=== PATIENT | female | born 1965 | race Caucasian/White ===

== ENCOUNTER 2018-03-11 01:07 | Emergency (ER) | payer MEDICAID, SELFPAY ==
[2018-03-11 01:09] VITALS: BP 155/96; PULSE 125; RESP 18; TEMP 37.4; O2SAT 96; BMI 29.4
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
--- NOTE | 2018-03-11 01:33 | ED.DEP ---
ED Disposition - Plan for ED Patient: Disposition: Home or Assisted Living Chief Complaint: Poisoning Referrals: Kiana Chavarria MD [Primary Care Provider] - As soon as possible Counseling,Center [GROUP OF PHYSICIANS] - As soon as possible Additional Instructions: Follow-up your primary care physician Dr. Chavarria and the counseling center.
--- NOTE | 2018-03-11 01:54 | ED.RN ---
THIS RN CALLED [facility] TO GET A RIDE FOR PT BACK TO [facility]. CAB CONTACTED. PT INFORMED OF AWAITING RIDE.
--- NOTE | 2018-03-11 02:03 | ED.RN ---
[facility] COMING TO TAKE PT TO [facility].
== END 2018-03-11 02:03 | disposition home or self-care (01) ==
PROVIDERS: Emergency Provider Emergency Medicine; Family Provider Internal Medicine; PCP Internal Medicine
DX: F20.9 Schizophrenia, unspecified (principal); I10 Essential (primary) hypertension; E11.9 Type 2 diabetes mellitus without complications; Z79.84 Long term (current) use of oral hypoglycemic drugs; Z79.899 Other long term (current) drug therapy; Z87.891 Personal history of nicotine dependence
CPT/HCPCS: 99284

== ENCOUNTER 2018-03-11 16:22 | Emergency (ER) | payer MEDICAID, SELFPAY ==
[2018-03-11 16:23] VITALS: BP 148/82; PULSE 99; RESP 18; TEMP 36.6; O2SAT 97; BMI 29.1
--- NOTE | 2018-03-11 16:51 | ED.VISSUMM ---
- ER Visit Summary Date of Service: 03/11/18 Chief Complaint: Suicidal ideation History of Present Illness: The patient is a 52 F presenting with suicidal ideation. Patient states she feels depressed and hopeless. She is currently staying at [facility]. They called the police who brought her to the ED for further evaluation. She states she has had thoughts of jumping in front of a car in traffic. She has a history of depression and schizoaffective disorder. She is a smoker. She denies drug use. Physical Examination: Vitals are stable. Patient is afebrile. Alert no acute distress. HEENT exam is unremarkable. Neck is supple. Lungs are clear and equal bilaterally. Heart is regular rate and rhythm. Abdomen is soft nontender nondistended. Extremities are unremarkable. Skin is warm and dry. No focal neurologic deficit. Suicidal ideation, tearful affect Remainder of exam is unremarkable. Emergency Department Course and Treatment: CBC unremarkable. Chemistries show sodium 128, glucose 117. She does have a history of previous hyponatremia. She is given IV fluids. Tox is negative. Discussed with counseling center for evaluation. Disposition: Per counseling center Impression: Depression, suicidal ideation This note was generated with [employer] dictation software. It may contain incorrect words, spelling, and punctuation that were not noted in review of the chart prior to signing ED Disposition - Plan for ED Patient: Chief Complaint: Suicidal Referrals: Kiana Chavarria MD [Primary Care Provider] -
[2018-03-11 17:07] LABS: Absolute Lymphocyte Count 2.69 X10^3/ul (0.83-4.51); Absolute Neutrophil Count 3.2 X10^3/uL (2.0-7.7); Basophil# 0.01 X10^3/uL; Basophil% 0.1 % (0-1); Eosinophil# 0.15 X10^3/uL; Eosinophils% 2.1 % (0-5); Hematocrit 35.4 % (37-47); Hemoglobin 12.3 g/dl (12.0-15.0); Lymphocyte # 2.69 X10^3/ul (4.0); Lymphocyte % 37.2 % (19-41); Mean Corp Hgb Conc 34.7 g/gl (32-36); Mean Corpuscular Hgb 29.8 pg (27.0-32.0); Mean Corpuscular Volume 85.7 fL (81-99); Mean Platelet Vol. 10.1 fl (6.2-12.0); Monocyte# 1.18 X10^3/uL; Monocyte% 16.3 % (0-10); Neutrophil # 3.18 X10^3/uL (2.7-7.7); Neutrophil % 43.9 % (47-70); Platelet Count 187 K/mm3 (150-450); RBC Distribution Width SD 40.8 fl (35.1-43.9); Red Blood Count 4.13 M/mm3 (4.2-5.4); White Blood Count 7.2 K/mm3 (4.4-11.0)
[2018-03-11 17:08] LABS: POSITIVE COUNT NO; POSITIVE DIFFERENTIAL NO; POSITIVE MORPHOLOGY NO
[2018-03-11 17:21] LABS: Amphetamine Urine VISTA NEGATIVE (<1000 ng/mL); Barbiturate Urine VISTA NEGATIVE (< 200 ng/mL); Benzodiazepine Urine VISTA NEGATIVE (< 200 ng/mL); Cocaine Urine VISTA NEGATIVE (< 300 ng/mL); Ecstacy Urine VISTA NEGATIVE (< 500 ng/mL); Methadone Urine VISTA NEGATIVE (< 300 ng/mL); PCP Urine VISTA NEGATIVE (< 25 ng/mL); THC Urine VISTA NEGATIVE (< 50 ng/mL); Vista UDS pH Range 5
[2018-03-11 17:25] LABS: Anion Gap 8 (5-15); BUN 13 mg/dL (7-18); BUN/Creat Ratio 19.5 RATIO (10-20); Calcium,Total 9.5 mg/dL (8.5-10.1); Chloride 94 mmol/L (98-107); Creatinine, Serum 0.67 mg/dL (0.55-1.02); EST Glomerular Filtration Rate 98 mL/min (>60); Est Glom Filt Rate - Afr Amer 118 mL/min (>60); Estimated Creatinine Clearance 82.89 ml/min; Glucose 117 mg/dL (74-106); Potassium 3.7 mmol/L (3.5-5.1); Sodium Level 128 mmol/L (136-145)
[2018-03-11 17:46] LABS: Pregnancy, Serum, hCG Quali. NEGATIVE Negative (0-9 Nonpreg)
[2018-03-11 17:48] LABS: Alcohol, Blood (Medical)-Serum < 3.0 mg/dL
--- NOTE | 2018-03-11 18:18 | ED.RN ---
MALCOLM MEDINA WILL BE HERE TO SEE PATIENT WHEN HE FINISHES UP IN ICU [id number]
[2018-03-11] MEDS: 0.9% Normal Saline 1,000 ML 999 ML IV (18:42)
[2018-03-11 18:58] VITALS: BP 120/77; PULSE 94; RESP 18; O2SAT 95
--- NOTE | 2018-03-11 20:12 | ED.DEP ---
ED Disposition - Plan for ED Patient: Chief Complaint: Suicidal Instructions: ED Depression Referrals: Kiana Chavarria MD [Primary Care Provider] - Counseling,Center [GROUP OF PHYSICIANS] -
[2018-03-11 21:01] VITALS: BP 135/82; PULSE 76; RESP 16; O2SAT 95
--- NOTE | 2018-03-11 21:05 | NURSING ---
MALCOLM ADAM CALLED A TAXI TO TAKE THE PT TO THE [facility] AND HAS AN APPOINTMENT TOMORROW AT 02:30. A TAXI WILL TAKE HER TO AND FROM THE APPOINTMENT. PT STATES SHE WILL COOPERATE AND DOES NOT WANT TO HARM HERSELF OR OTHERS. CLOTHES GIVEN BACK TO HER AND WAITED FOR THE TAXI OUT IN TRIAGE.
== END 2018-03-11 21:07 | disposition home or self-care (01) ==
PROVIDERS: Emergency Provider Emergency Medicine; Family Provider Internal Medicine; PCP Internal Medicine
DX: F32.9 Major depressive disorder, single episode, unspecified (principal); R45.851 Suicidal ideations; Z72.0 Tobacco use; F25.9 Schizoaffective disorder, unspecified; I10 Essential (primary) hypertension; E11.9 Type 2 diabetes mellitus without complications; Z79.84 Long term (current) use of oral hypoglycemic drugs; Z79.899 Other long term (current) drug therapy
CPT/HCPCS: 36415; 80048; 80307; 80320; 84703; 85025; 96360; 99284; 99285; J7030; A4216; G0480

== ENCOUNTER 2018-03-13 19:12 | Emergency (ER) | payer MEDICAID, SELFPAY ==
[2018-03-13 19:12] VITALS: BP 149/86; PULSE 77; RESP 18; TEMP 36.3; O2SAT 97; BMI 29.1
[2018-03-13 20:02] LABS: Absolute Lymphocyte Count 2.89 X10^3/ul (0.83-4.51); Absolute Neutrophil Count 2.7 X10^3/uL (2.0-7.7); Basophil# 0.01 X10^3/uL; Basophil% 0.1 % (0-1); Eosinophil# 0.22 X10^3/uL; Eosinophils% 3.3 % (0-5); Hematocrit 34.5 % (37-47); Hemoglobin 11.8 g/dl (12.0-15.0); Lymphocyte # 2.89 X10^3/ul (4.0); Lymphocyte % 42.9 % (19-41); Mean Corp Hgb Conc 34.2 g/gl (32-36); Mean Corpuscular Hgb 30.1 pg (27.0-32.0); Mean Platelet Vol. 10.3 fl (6.2-12.0); Monocyte# 0.86 X10^3/uL; Monocyte% 12.8 % (0-10); Neutrophil # 2.73 X10^3/uL (2.7-7.7); Neutrophil % 40.6 % (47-70); Platelet Count 184 K/mm3 (150-450); RBC Distribution Width CV 13.3 % (11.6-14.6); RBC Distribution Width SD 42.4 fl (35.1-43.9); Red Blood Count 3.92 M/mm3 (4.2-5.4); White Blood Count 6.7 K/mm3 (4.4-11.0)
[2018-03-13 20:04] LABS: POSITIVE COUNT NO; POSITIVE DIFFERENTIAL NO; POSITIVE MORPHOLOGY NO
[2018-03-13 20:16] LABS: Anion Gap 7 (5-15); BUN 12 mg/dL (7-18); BUN/Creat Ratio 14.8 RATIO (10-20); Calcium,Total 8.9 mg/dL (8.5-10.1); Chloride 99 mmol/L (98-107); Creatinine, Serum 0.81 mg/dL (0.55-1.02); EST Glomerular Filtration Rate 78 mL/min (>60); Est Glom Filt Rate - Afr Amer 94 mL/min (>60); Estimated Creatinine Clearance 68.56 ml/min; Glucose 207 mg/dL (74-106); Potassium 3.8 mmol/L (3.5-5.1); Sodium Level 134 mmol/L (136-145)
[2018-03-13 20:25] VITALS: BP 148/85; PULSE 80; RESP 17; O2SAT 98
[2018-03-13 20:32] LABS: Bacteria 0 SEEN /hpf (None Seen); Mucous, Urine 0 SEEN /hpf (<or=2+); Red Blood Cells-Urine 0 SEEN /hpf (0-5)
[2018-03-13 20:42] LABS: Color, Urine Yellow (Yellow); Glucose, Dipstick 250 mg/dl (Normal); Ketone-Dipstick 5 mg/dl (Negative); Leukocyte Esterase-Dipstick 100 /ul (Negative); Nitrite-Dipstick Negative (Negative); Occult Blood-Urine Negative /ul (Negative); Protein-Dipstick 15 mg/dl (Negative); Urine Bilirubin Dipstick Negative (Negative); Urine Clarity Sl. Cloudy (Clear); Urine Urobilinogen Normal (Normal); Urine pH 6.5 (5.0 - 8.0)
[2018-03-13 20:44] LABS: Squamous Epithelial Cells - UA 0-5 SEEN /hpf (5-10); White Blood Cells 0-5 SEEN /hpf (0-5)
--- NOTE | 2018-03-13 22:03 | ED.DCSUM_ITS ---
- ER Visit Summary Date of Service: 03/13/18 Chief Complaint: Abdominal pain for 2-3 days that has gotten worse. She reports nausea and diarrhea. She has blood or mucus in her stool. She states she has burning with urination. History of Present Illness: The patient is a 52 F who is not a good informant. She has a mood disorder and cognitive impairment. There is a past medical history of diabetes and hypertension. She presents with bilateral lower abdominal pain that has gotten worse over the past 2-3 days. She reports dysuria without frequency urgency or hematuria. She denies fever, chills night sweats. She denies any ocular, visual auditory symptoms. She denies any URI symptoms. Denies chest pain palpitations or rapid heartbeat. She denies cough , shortness of breath difficulty breathing. She denies dyspnea. She denies myalgias arthralgias. Denies back pain. She denies any skin lesions. Physical Examination: Vital signs are marked for an elevated blood pressure 149/ 86. Patient is not well groomed. Head is atraumatic normocephalic. Pupils are equal round reactive. Extraocular muscles are intact. TMs are pearly white with landmarks noted. Nares patent with no drainage. Posterior pharynx without erythema or exudate. Uvula is midline. There is no dysphonia or dysphasia. Trachea is midline. There is no stridor with auscultation of the neck. Heart is regular without murmur, gallop or rub. S1 and S2 are normal. Lungs are clear to auscultation with good movement of air bilaterally. Abdomen is slightly prominent tympanitic with evidence of diastases of the rectus muscle. There is no tenderness or guarding. There are no skin lesions noted or evidence of trauma. She is alert with a nonfocal neurologic exam. Test Results: CBC is marked for an H&H 11.8 and 34.5. Blood sugars 207 with normal CO2 and anion gap. UA is unremarkable for evidence of infection. Emergency Department Course and Treatment: Patient has passed p.o. challenge. Workup included CBC BMP UA in light of her constellation of symptoms. Treatment Plan: Differential includes UTI, gastroenteritis, abdominal wall discomfort. Since patient's workup is negative other than elevated blood sugar with a benign exam and the fact that she has passed p.o. challenge and had no vomiting or diarrhea in the department she will be discharged home Disposition: Discharged to home in stable improved condition Impression: 1. Abdominal pain with nausea and diarrhea 2. Hyperglycemia and diabetic 3. History of mood disorder This note was generated with [employer] dictation software. It may contain incorrect words, spelling, and punctuation that were not noted in review of the chart prior to signing ED Disposition - Plan for ED Patient: Disposition: Home or Assisted Living Chief Complaint: Abd Pain Instructions: ED Abdominal Pain Unkn Cause Referrals: Kiana Chavarria MD [Primary Care Provider] - 3-5 Days if not improving
[2018-03-13 22:18] VITALS: BP 136/96; PULSE 77; RESP 18; O2SAT 98
[2018-03-13] MEDS: Acetaminophen 325 MG Tablet 650 MG PO (22:21)
== END 2018-03-13 22:22 | disposition home or self-care (01) ==
PROVIDERS: Emergency Provider Emergency Medicine; Family Provider Internal Medicine; PCP Internal Medicine
DX: R10.32 Left lower quadrant pain (principal); R10.31 Right lower quadrant pain; R11.0 Nausea; R19.7 Diarrhea, unspecified; E11.65 Type 2 diabetes mellitus with hyperglycemia; I10 Essential (primary) hypertension; F39 Unspecified mood [affective] disorder; E66.9 Obesity, unspecified; Z68.29 Body mass index [BMI] 29.0-29.9, adult; Z79.84 Long term (current) use of oral hypoglycemic drugs; Z79.899 Other long term (current) drug therapy; Z72.0 Tobacco use
CPT/HCPCS: 80048; 81001; 85025; 99285; A4216

== ENCOUNTER 2018-03-14 06:45 | Emergency (ER) | payer MEDICAID, SELFPAY ==
[2018-03-14] VITALS (13 sets, daily range): BP systolic 143–198; BP diastolic 74–129; PULSE 81–121; RESP 14–24; TEMP 36.7–36.9; O2SAT 96–100; BMI 28.8
--- NOTE | 2018-03-14 07:07 | ED.RN ---
ONE BAG OF PATIENT BELONGINGS AND ONE SMALL RED SUITCASE REMOVED FROM THE ROOM
--- NOTE | 2018-03-14 07:14 | CT_ITS ---
STUDY: CT ABDOMEN AND PELVIS WITHOUT CONTRAST REASON FOR EXAM: Female, 52 years old. Lower abdominal pain. The patient has a history of her breast cancer and cervical cancer. RADIATION DOSAGE (If Supplied By Facility): CTDIvol = ( 13.88 ) mGy, DLP = ( 624.23 ) mGycm TECHNIQUE: Transaxial images were obtained from the dome of the diaphragm to the symphysis pubis without oral contrast, and without intravenous contrast. Sagittal and coronal images were reconstructed. Individualized dose optimization techniques were used for this CT. COMPARISON: None. FINDINGS: The visualized lung bases are unremarkable. The visualized portions of the heart are within normal limits. Normal liver. There are surgical clips in the gallbladder fossa consistent with a prior cholecystectomy. Normal spleen. Normal pancreas. Normal bilateral adrenal glands. Normal right kidney. Normal left kidney. There is a small hiatal hernia. Normal small intestine. Normal colon. There are surgical clips in the region of the appendix consistent with a prior appendectomy. There is diffuse atherosclerotic calcification of the abdominal aorta, without a demonstrated aneurysm. Normal inferior vena cava. Normal retroperitoneum. Markedly distended urinary bladder. Calcified phleboliths are seen within the pelvis. Surgical clips are seen in the pelvis. The patient is status post hysterectomy. Normal abdominal wall. There are degenerative changes of the visualized lumbar spine. CT/Abdomen/Pelvis without Cont IMPRESSION: Markedly distended urinary bladder Electronically Signed: Tommy Engle MD at 8:29 EDT Tel [phone], Service support ,
[2018-03-14 07:53] LABS: Absolute Lymphocyte Count 1.33 X10^3/ul (0.83-4.51); Absolute Neutrophil Count 6.2 X10^3/uL (2.0-7.7); Basophil# 0.02 X10^3/uL; Basophil% 0.2 % (0-1); Eosinophil# 0.04 X10^3/uL; Eosinophils% 0.5 % (0-5); Hematocrit 37.4 % (37-47); Hemoglobin 13.1 g/dl (12.0-15.0); Lymphocyte # 1.33 X10^3/ul (4.0); Lymphocyte % 15.3 % (19-41); Mean Corpuscular Hgb 30.3 pg (27.0-32.0); Mean Corpuscular Volume 86.6 fL (81-99); Mean Platelet Vol. 11.3 fl (6.2-12.0); Monocyte# 1.03 X10^3/uL; Monocyte% 11.8 % (0-10); Neutrophil # 6.23 X10^3/uL (2.7-7.7); Neutrophil % 71.6 % (47-70); POSITIVE COUNT NO; POSITIVE DIFFERENTIAL NO; POSITIVE MORPHOLOGY NO; Platelet Count 210 K/mm3 (150-450); RBC Distribution Width CV 13.1 % (11.6-14.6); RBC Distribution Width SD 41.9 fl (35.1-43.9); Red Blood Count 4.32 M/mm3 (4.2-5.4); White Blood Count 8.7 K/mm3 (4.4-11.0)
[2018-03-14] MEDS: Ondansetron ODT 4 MG Tablet PO (08:08)
[2018-03-14 08:09] LABS: ALB/GLOB Ratio 0.8 RATIO (0.9-2.4); AST(SGOT) 26 U/L (15-37); Alanine Aminotransfer ALT/SGPT 33 U/L (13-56); Albumin, Serum 3.6 g/dL (3.2-5.0); Alkaline Phosphatase 49 U/L (45-117); Anion Gap 11 (5-15); BUN 8 mg/dL (7-18); BUN/Creat Ratio 10.1 RATIO (10-20); Calcium,Total 9.1 mg/dL (8.5-10.1); Chloride 95 mmol/L (98-107); Creatinine, Serum 0.79 mg/dL (0.55-1.02); EST Glomerular Filtration Rate 80 mL/min (>60); Est Glom Filt Rate - Afr Amer 97 mL/min (>60); Globulin 4.4 g/dL (2.2-4.2); Glucose 163 mg/dL (74-106); Potassium 4.5 mmol/L (3.5-5.1); Sodium Level 131 mmol/L (136-145)
[2018-03-14 08:30] LABS: Valproic Acid (Depakene) Level 72 ug/mL (50-100)
[2018-03-14 08:31] LABS: Alcohol, Blood (Medical)-Serum < 3.0 mg/dL
[2018-03-14 08:41] LABS: Bacteria 0 SEEN /hpf (None Seen); Mucous, Urine 0 SEEN /hpf (<or=2+); Red Blood Cells-Urine 0 SEEN /hpf (0-5); White Blood Cells 0 SEEN /hpf (0-5)
[2018-03-14 08:44] LABS: Color, Urine Yellow (Yellow); Glucose, Dipstick 250 mg/dl (Normal); Ketone-Dipstick Negative (Negative); Leukocyte Esterase-Dipstick Negative /ul (Negative); Nitrite-Dipstick Negative (Negative); Occult Blood-Urine 10 /ul (Negative); Protein-Dipstick 100 mg/dl (Negative); Urine Bilirubin Dipstick Negative (Negative); Urine Clarity Clear (Clear); Urine Urobilinogen Normal (Normal)
[2018-03-14 08:49] LABS: Squamous Epithelial Cells - UA 0-5 SEEN /hpf (5-10)
--- NOTE | 2018-03-14 08:54 | NURSING ---
CALLED THE COUNSELING CENTER TO TELL THEM PATIENTS CLEARED. THEY ARE CALLING BACK.
[2018-03-14 08:56] LABS: Amphetamine Urine VISTA NEGATIVE (<1000 ng/mL); Barbiturate Urine VISTA NEGATIVE (< 200 ng/mL); Benzodiazepine Urine VISTA NEGATIVE (< 200 ng/mL); Cocaine Urine VISTA NEGATIVE (< 300 ng/mL); Ecstacy Urine VISTA NEGATIVE (< 500 ng/mL); Methadone Urine VISTA NEGATIVE (< 300 ng/mL); PCP Urine VISTA NEGATIVE (< 25 ng/mL); THC Urine VISTA NEGATIVE (< 50 ng/mL); Vista UDS pH Range 6
--- NOTE | 2018-03-14 08:59 | NURSING ---
ANASTACIO CALLED FROM [facility] AND SAID THEY WILL BE OVER SHORTLY.
--- NOTE | 2018-03-14 09:52 | NURSING ---
ALONA IS HERE FROM [facility]
--- NOTE | 2018-03-14 10:30 | ED.VISSUMM ---
- ER Visit Summary Date of Service: 03/14/18 Chief Complaint: [Suicidal ideation, depression, hallucinations] History of Present Illness: The patient is a 52 F [presents the emergency department with multiple complaints today. Patient has a history of schizophrenia, depression, diabetes, hypertension. Patient's had several visits in the last several days to the emergency department for complaint of abdominal pain. Patient states that everybody is against me]. Patient feels paranoid. Patient made mention to nurse that she was starting to feel suicidal. Patient has no specific plan on wanting to harm self. Patient does complain of diffuse abdominal discomfort. She has had some nausea but no vomiting. Patient has had some intermittent diarrhea. She denies any blood in her stool. Patient denies urinary symptoms. She has had no fever. Patient states that she is hearing voices and seeing things. Physical Examination: [HEENT-PERRLA, EOMI. Cranial nerves II through XII grossly intact. TMs clear. Mucous membranes moist. No adenopathy. Cardiovascular-regular rate and rhythm without murmur or ectopy Lungs-clear to auscultation, chest wall stable without crepitus or subcu emphysema Abdomen-normoactive bowel sounds, soft. Patient has some diffuse tenderness on exam. Abdomen somewhat protuberant. There is no rebound, rigidity, or perineal signs. Extremities-intact ?4, normal range of motion, normal pulses, atraumatic Test Results: [CBC with differential obtained showed a white count of 8.7, hemoglobin 13, hematocrit 37, platelets 210. Chemistries unremarkable. Urinalysis was normal. CT scan of the abdomen and pelvis showed nothing significant. Patient was noted to have a distended urinary bladder. Patient was able to void on her own without difficulty after CT and residual urine was 280 cc.] Emergency Department Course and Treatment: [Was given Zofran. Patient was given a nicotine patch.] Treatment Plan: [Patient will be evaluated by crisis] Disposition: [Plan will be to transfer to psychiatric facility pending evaluation by crisis] Impression: [Psychosis Depression Abdominal pain-etiology uncertain] This note was generated with Oncov[employer] software. It may contain incorrect words, spelling, and punctuation that were not noted in review of the chart prior to signing ED Disposition - Plan for ED Patient: Chief Complaint: Suicidal Referrals: Kiana Chavarria MD [Primary Care Provider] -
--- NOTE | 2018-03-14 11:59 | ED.RN ---
[facility] REQUESTING EKG, TEST, AND DEPAKOTE LEVEL
--- NOTE | 2018-03-14 12:02 | EKG12_ITS ---
Test Reason : MEDICAL CLEARANCE Blood Pressure : / mmHG Vent. Rate : 081 BPM Atrial Rate : 081 BPM P-R Int : 168 ms QRS Dur : 088 ms QT Int : 384 ms P-R-T Axes : 064 017 055 degrees QTc Int : 446 ms Normal sinus rhythm with sinus arrhythmia Normal ECG Confirmed by BREN FELIZ ([id number]), assignment desk editor HEENA ROSS ([id number]) on 03/18/2018 2:49:00 PM Referred By: CHRISTY Confirmed By:BREN FELIZ
--- NOTE | 2018-03-14 12:08 | ED.RN ---
THIS NURSE ATTEMPTED TO CONTACT [facility] WITH FOLLOWUP INFORMATION
--- NOTE | 2018-03-14 12:16 | ED.RN ---
MARISEL FROM [facility] NOTIFIED PT HAS HAD A HYSTERECTOMY AND DEPAKOTE LEVEL
[2018-03-14] MEDS: Divalproex Sodium 250 MG Tablet 1000 MG PO ×2 (12:57→17:30)
[2018-03-14] MEDS: Lisinopril 40 MG Tablet PO (12:57)
[2018-03-14] MEDS: Tolterodine Tartrate 2 MG CAP.SA PO (12:57)
[2018-03-14] MEDS: Pantoprazole Sodium 40 MG Tablet PO (12:57)
[2018-03-14] MEDS: hydrALAZINE 10 MG Tablet PO (15:32)
--- NOTE | 2018-03-14 18:38 | ED.RN ---
Pt standing at door stating a concern. I entered room to listen to patient and she stated there was something in the room. After asking what she meant, the patient asked if I was threatening her. I reassured her that I was onlt attempting to understand her statement. She them stated there was something in the room threatening her, clarified it was going to kill her. She also admitted to auditory hallucinations of said object. Pt was reassured nothing was in the room and nothing was going to hurt her. I manager housekeeping her door further to increase her comfort. She was agreeable to this action.
[2018-03-14] MEDS: cloNIDine HCl 0.1 MG Tablet PO (18:50)
[2018-03-14 19:15] LABS: Bedside Glucose 186 mg/dL (70-110)
== END 2018-03-14 19:19 ==
LOC: ED 07:26
PROVIDERS: Emergency Provider Emergency Medicine; Family Provider Internal Medicine; PCP Internal Medicine
DX: F32.9 Major depressive disorder, single episode, unspecified (principal); F29 Unspecified psychosis not due to a substance or known physiological condition; R10.9 Unspecified abdominal pain; E11.9 Type 2 diabetes mellitus without complications; I25.10 Atherosclerotic heart disease of native coronary artery without angina pectoris; I10 Essential (primary) hypertension; F20.9 Schizophrenia, unspecified; Z79.899 Other long term (current) drug therapy; Z79.84 Long term (current) use of oral hypoglycemic drugs; Z72.0 Tobacco use
CPT/HCPCS: 74176; 80053; 80164; 80307; 80320; 81001; 82962; 85025; 93005; 96374; 99285; A4216; G0480; J2405

== ENCOUNTER 2018-04-25 17:09 | Emergency (ER) | payer MEDICAID, SELFPAY ==
[2018-04-25 17:10] VITALS: BP 153/91; PULSE 95; RESP 18; TEMP 36.7; O2SAT 98; BMI 26.9
[2018-04-25 17:44] LABS: Absolute Lymphocyte Count 2.54 X10^3/ul (0.83-4.51); Absolute Neutrophil Count 3.6 X10^3/uL (2.0-7.7); Basophil# 0.01 X10^3/uL; Basophil% 0.1 % (0-1); Eosinophil# 0.09 X10^3/uL; Eosinophils% 1.2 % (0-5); Hematocrit 39.5 % (37-47); Hemoglobin 13.7 g/dl (12.0-15.0); Lymphocyte # 2.54 X10^3/ul (4.0); Lymphocyte % 35.1 % (19-41); Mean Corp Hgb Conc 34.7 g/gl (32-36); Mean Corpuscular Volume 89.4 fL (81-99); Mean Platelet Vol. 9.7 fl (6.2-12.0); Monocyte# 1.01 X10^3/uL; Neutrophil # 3.58 X10^3/uL (2.7-7.7); Neutrophil % 49.6 % (47-70); POSITIVE COUNT NO; POSITIVE DIFFERENTIAL NO; POSITIVE MORPHOLOGY NO; Platelet Count 219 K/mm3 (150-450); RBC Distribution Width CV 14.2 % (11.6-14.6); RBC Distribution Width SD 46.3 fl (35.1-43.9); Red Blood Count 4.42 M/mm3 (4.2-5.4); White Blood Count 7.2 K/mm3 (4.4-11.0)
[2018-04-25 18:03] LABS: Anion Gap 8 (5-15); BUN 7 mg/dL (7-18); BUN/Creat Ratio 9.7 RATIO (10-20); Calcium,Total 9.3 mg/dL (8.5-10.1); Chloride 98 mmol/L (98-107); Creatinine, Serum 0.72 mg/dL (0.55-1.02); EST Glomerular Filtration Rate 90 mL/min (>60); Est Glom Filt Rate - Afr Amer 108 mL/min (>60); Estimated Creatinine Clearance 77.13 ml/min; Glucose 137 mg/dL (74-106); Potassium 3.9 mmol/L (3.5-5.1); Sodium Level 133 mmol/L (136-145)
[2018-04-25 18:26] LABS: Pregnancy, Serum, hCG Quali. NEGATIVE Negative (0-9 Nonpreg)
[2018-04-25 18:30] LABS: Amphetamine Urine VISTA NEGATIVE (<1000 ng/mL); Barbiturate Urine VISTA NEGATIVE (< 200 ng/mL); Benzodiazepine Urine VISTA NEGATIVE (< 200 ng/mL); Cocaine Urine VISTA NEGATIVE (< 300 ng/mL); Ecstacy Urine VISTA NEGATIVE (< 500 ng/mL); Methadone Urine VISTA NEGATIVE (< 300 ng/mL); PCP Urine VISTA NEGATIVE (< 25 ng/mL); THC Urine VISTA NEGATIVE (< 50 ng/mL); Vista UDS pH Range 6
--- NOTE | 2018-04-25 19:05 | ED.RN ---
[facility] CONTACTED TO COME SEE PT. PT MEDICALLY CLEARED
--- NOTE | 2018-04-25 19:30 | ED.VISSUMM ---
- ER Visit Summary Date of Service: 04/25/18 Chief Complaint: Suicidal ideation and hallucination History of Present Illness: The patient is a 52 F presenting with suicidal ideation and hallucinations. She was seen by the counseling center earlier today and was sent in for further evaluation. She was discharged from [place] 3 weeks ago. She lives in a snf. residential staff states over the past day she has been more depressed and complained of seeing ghosts and being suicidal. She states she has a plan to kill herself but she does not want to share her plan with us. Physical Examination: Vitals are stable. Patient is afebrile. Alert no acute distress. HEENT exam is unremarkable. Neck is supple. Lungs are clear and equal bilaterally. Heart is regular rate and rhythm. Abdomen is soft nontender nondistended. Extremities are unremarkable. Skin is warm and dry. No focal neurologic deficit. Depressed affect, suicidal ideation Remainder of exam is unremarkable. Emergency Department Course and Treatment: CBC, chemistries unremarkable other than sodium 133, glucose 137. HCG negative. Tox and alcohol are negative. Depakote level 49. Discussed with the counseling center for evaluation. Disposition: Per counseling center Impression: Suicidal ideation, hallucinations This note was generated with [employer] dictation software. It may contain incorrect words, spelling, and punctuation that were not noted in review of the chart prior to signing ED Disposition - Plan for ED Patient: Chief Complaint: Mental Health Referrals: Kiana Chavarria MD [Primary Care Provider] -
--- NOTE | 2018-04-25 19:33 | ED.DCSUM_ITS ---
- ER Visit Summary Date of Service: 04/25/18 Chief Complaint: Suicidal ideation and hallucination History of Present Illness: The patient is a 52 F presenting with suicidal ideation and hallucinations. She was seen by the counseling center earlier today and was sent in for further evaluation. She was discharged from [place] 3 weeks ago. She lives in a shelter. snf staff states over the past day she has been more depressed and complained of seeing ghosts and being suicidal. She states she has a plan to kill herself but she does not want to share her plan with us. Physical Examination: Vitals are stable. Patient is afebrile. Alert no acute distress. HEENT exam is unremarkable. Neck is supple. Lungs are clear and equal bilaterally. Heart is regular rate and rhythm. Abdomen is soft nontender nondistended. Extremities are unremarkable. Skin is warm and dry. No focal neurologic deficit. Depressed affect, suicidal ideation Remainder of exam is unremarkable. Emergency Department Course and Treatment: CBC, chemistries unremarkable other than sodium 133, glucose 137. HCG negative. Tox and alcohol are negative. Depakote level 49. Discussed with the counseling center for evaluation. Disposition: Per counseling center Impression: Suicidal ideation, hallucinations This note was generated with [employer] dictation software. It may contain incorrect words, spelling, and punctuation that were not noted in review of the chart prior to signing ED Disposition - Plan for ED Patient: Chief Complaint: Mental Health Referrals: Kiana Chavarria MD [Primary Care Provider] -
[2018-04-25 19:47] LABS: Valproic Acid (Depakene) Level 49 ug/mL (50-100)
--- NOTE | 2018-04-25 19:57 | EKG12_ITS ---
Test Reason : [facility] Blood Pressure : / mmHG Vent. Rate : 070 BPM Atrial Rate : 070 BPM P-R Int : 176 ms QRS Dur : 086 ms QT Int : 398 ms P-R-T Axes : 047 -15 054 degrees QTc Int : 429 ms Normal sinus rhythm Poor R wave progression Confirmed by EMILIA CHRISTENSEN, BLANCA ([id number]), movie editor NANCY ARNETT ([id number]) on 04/29/2018 1:17:09 PM Referred By: MIYA Confirmed By:BLANCA NIETO MD
--- NOTE | 2018-04-25 19:57 | ED.RN ---
CALLED FOR EKG PER RN REQUEST, PULLED OLD EKG'S FOR
[2018-04-25 20:09] VITALS: BP 162/96
[2018-04-25 20:09] LABS: Bacteria 0 SEEN /hpf (None Seen); Mucous, Urine 0 SEEN /hpf (<or=2+); Red Blood Cells-Urine 0 SEEN /hpf (0-5); Squamous Epithelial Cells - UA 0 SEEN /hpf (5-10)
[2018-04-25 20:11] LABS: Color, Urine Yellow (Yellow); Glucose, Dipstick 50 mg/dl (Normal); Ketone-Dipstick Negative (Negative); Leukocyte Esterase-Dipstick 100 /ul (Negative); Nitrite-Dipstick Negative (Negative); Occult Blood-Urine Negative /ul (Negative); Protein-Dipstick 15 mg/dl (Negative); Urine Bilirubin Dipstick Negative (Negative); Urine Clarity Clear (Clear); Urine Urobilinogen Normal (Normal)
[2018-04-25 20:17] LABS: White Blood Cells 0-5 SEEN /hpf (0-5)
[2018-04-25 20:22] LABS: AST(SGOT) 23 U/L (15-37); Alanine Aminotransfer ALT/SGPT 43 U/L (13-56); Albumin, Serum 3.7 g/dL (3.2-5.0); Alkaline Phosphatase 53 U/L (45-117); Bilirubin, Direct 0.16 mg/dL (0.00-0.30); Globulin 4.5 g/dL (2.2-4.2); Protein, Total 8.2 g/dL (6.4-8.2)
[2018-04-25 21:00] VITALS: RESP 16
[2018-04-25 22:00] VITALS: RESP 16
[2018-04-25] MEDS: Docusate Sodium 100 MG Capsule PO (22:17)
[2018-04-25] MEDS: Benztropine 2 MG Tablet 1 MG PO (22:18)
[2018-04-25] MEDS: Mirtazapine 30 MG Tablet PO (22:18)
[2018-04-25] MEDS: Lisinopril 20 MG Tablet PO (22:19)
[2018-04-25] MEDS: Divalproex Sodium 250 MG Tablet 1000 MG PO (22:19)
[2018-04-25] MEDS: Oxybutynin 5 MG Tablet PO (22:19)
[2018-04-25 23:00] VITALS: BP 115/79; PULSE 80; RESP 18; O2SAT 93
[2018-04-26] VITALS (10 sets, daily range): BP systolic 142–146; BP diastolic 85–88; PULSE 79–83; RESP 14–18; TEMP 36.1; O2SAT 97–99
[2018-04-26 00:30] LABS: Sodium Level 135 mmol/L (136-145)
--- NOTE | 2018-04-26 05:14 | ED.RN ---
CALLED [facility] AND [facility] [place] TO GET AN UPDATE REGARDING PT'S ADMISSION. NO CALL BACK YET.
--- NOTE | 2018-04-26 05:38 | ED.RN ---
SPOKE WITH [facility] ADMISSIONS NURSE. SHE STATED PT HAS BEEN ACCEPTED TO [facility] BUT IS ON THE WAITING LIST BC SHE HAS INSURANCE. SHE HAS 3 PEOPLE AHEAD OF HER ON WAITING LIST
[2018-04-26] MEDS: Oxybutynin 5 MG Tablet PO (06:13)
--- NOTE | 2018-04-26 09:34 | NURSING ---
CALLED [facility] FOR TRANSPORT TO [facility], ETA IS 1 HR
--- NOTE | 2018-04-26 09:40 | NURSING ---
CALLED [facility] FOR TRANSPORT. ETA IS SOON
[2018-04-26] MEDS: Benztropine 2 MG Tablet 1 MG PO (09:59)
[2018-04-26] MEDS: Docusate Sodium 100 MG Capsule PO (10:00)
[2018-04-26] MEDS: Pantoprazole Sodium 40 MG Tablet PO (10:00)
[2018-04-26] MEDS: Divalproex Sodium 250 MG Tablet 500 MG PO (10:00)
[2018-04-26] MEDS: Lisinopril 20 MG Tablet PO (10:00)
== END 2018-04-26 10:03 ==
PROVIDERS: Emergency Medicine; Emergency Provider Emergency Medicine; Family Provider Internal Medicine; PCP Internal Medicine
DX: R45.851 Suicidal ideations (principal); R44.1 Visual hallucinations; F39 Unspecified mood [affective] disorder; I10 Essential (primary) hypertension; E11.9 Type 2 diabetes mellitus without complications; Z79.84 Long term (current) use of oral hypoglycemic drugs; Z79.899 Other long term (current) drug therapy; Z72.0 Tobacco use
CPT/HCPCS: 80048; 80076; 80164; 80307; 80320; 81001; 84295; 84703; 85025; 93005; 99285; G0480

== ENCOUNTER 2018-10-27 13:14 | Emergency (ER) | payer MEDICAID, SELFPAY ==
[2018-10-27 13:15] VITALS: BP 158/104; PULSE 113; RESP 16; TEMP 36.9; O2SAT 96; BMI 28.3
--- NOTE | 2018-10-27 13:51 | RAD_ITS ---
STUDY: X-RAY - LEFT WRIST REASON FOR EXAM: Female, 53 years old. Left wrist pain after fall TECHNIQUE: 3 view(s) of the wrist were obtained. COMPARISON: None. FINDINGS: Normal visualized distal radius and ulna. Normal radiocarpal articulation. Normal distal radioulnar articulation. Normal carpal bones. Normal carpal articulations. Normal carpometacarpal articulation of the thumb. Normal second through fifth carpometacarpal articulations. Normal visualized metacarpal bones. The soft tissue structures are unremarkable. RAD/Wrist min 3 Views IMPRESSION: No fracture or malalignment. Electronically Signed: Juan Manuel White MD at 14:02 EST , Service support ,
--- NOTE | 2018-10-27 14:25 | ED.VISSUMM ---
- ER Visit Summary Date of Service: 10/27/18 Chief Complaint: Wrist pain History of Present Illness: The patient is a 53 F who fell on the ice a few hours ago, injured her left wrist no head injury neck pain or any other injury. She fell secondary to ice. Physical Examination: She has tenderness over the dorsum of the wrist, full range of motion no specific pain at the scaphoid. No elbow pain or pain with pronation supination. X-rays are negative patient will be discharged in stable condition with a splint. Impression: [Left wrist contusion] This note was generated with [employer] dictation software. It may contain incorrect words, spelling, and punctuation that were not noted in review of the chart prior to signing ED Disposition - Plan for ED Patient: Disposition: Home or Assisted Living Instructions: ED Contusion Upper Ext Prescriptions: Naproxen [Naprosyn] 500 mg PO BID PRN #20 tab Referrals: Kiana Chavarria MD [Primary Care Provider] -
--- NOTE | 2018-10-27 14:29 | ED.DCSUM_ITS ---
- ER Visit Summary Date of Service: 10/27/18 Chief Complaint: Wrist pain History of Present Illness: The patient is a 53 F who fell on the ice a few hours ago, injured her left wrist no head injury neck pain or any other injury. She fell secondary to ice. Physical Examination: She has tenderness over the dorsum of the wrist, full range of motion no specific pain at the scaphoid. No elbow pain or pain with pronation supination. X-rays are negative patient will be discharged in stable condition with a splint. Impression: [Left wrist contusion] This note was generated with [employer] dictation software. It may contain incorrect words, spelling, and punctuation that were not noted in review of the chart prior to signing ED Disposition - Plan for ED Patient: Disposition: Home or Assisted Living Instructions: ED Contusion Upper Ext Prescriptions: Naproxen [Naprosyn] 500 mg PO BID PRN #20 tab Referrals: Kiana Chavarria MD [Primary Care Provider] -
[2018-10-27 14:55] VITALS: RESP 14
== END 2018-10-27 14:55 | disposition home or self-care (01) ==
PROVIDERS: Emergency Provider Emergency Medicine; Family Provider Internal Medicine; PCP Internal Medicine
DX: S60.212A Contusion of left wrist, initial encounter (principal); W00.9XXA Unspecified fall due to ice and snow, initial encounter; Y93.9 Activity, unspecified; Y92.9 Unspecified place or not applicable; I10 Essential (primary) hypertension; E11.9 Type 2 diabetes mellitus without complications; Z79.84 Long term (current) use of oral hypoglycemic drugs; Z79.899 Other long term (current) drug therapy
CPT/HCPCS: 73110; 99284

== ENCOUNTER 2018-11-21 11:50 | Emergency (ER) | payer MEDICAID, SELFPAY ==
[2018-11-21] VITALS (7 sets, daily range): BP systolic 150–166; BP diastolic 96–102; PULSE 85–110; RESP 16–18; TEMP 36.6; O2SAT 96; BMI 29.2
--- NOTE | 2018-11-21 11:59 | ED.RN ---
pt waiting on room. under constant observation
[2018-11-21 12:45] LABS: Absolute Lymphocyte Count 2.53 X10^3/ul (0.83-4.51); Absolute Neutrophil Count 3.2 X10^3/uL (2.0-7.7); Basophil# 0.01 X10^3/uL; Basophil% 0.1 % (0-1); Eosinophil# 0.16 X10^3/uL; Eosinophils% 2.4 % (0-5); Hemoglobin 14.5 g/dl (12.0-15.0); Lymphocyte # 2.53 X10^3/ul (4.0); Lymphocyte % 37.6 % (19-41); Mean Corp Hgb Conc 33.7 g/gl (32-36); Mean Corpuscular Hgb 30.9 pg (27.0-32.0); Mean Corpuscular Volume 91.5 fL (81-99); Mean Platelet Vol. 10.8 fl (6.2-12.0); Monocyte# 0.82 X10^3/uL; Monocyte% 12.2 % (0-10); Neutrophil % 47.6 % (47-70); Platelet Count 224 K/mm3 (150-450); RBC Distribution Width CV 12.8 % (11.6-14.6); White Blood Count 6.7 K/mm3 (4.4-11.0)
[2018-11-21 12:48] LABS: POSITIVE COUNT NO; POSITIVE DIFFERENTIAL NO; POSITIVE MORPHOLOGY NO
[2018-11-21 12:50] LABS: Amphetamine Urine VISTA NEGATIVE (<1000 ng/mL); Barbiturate Urine VISTA NEGATIVE (< 200 ng/mL); Benzodiazepine Urine VISTA NEGATIVE (< 200 ng/mL); Cocaine Urine VISTA NEGATIVE (< 300 ng/mL); Ecstacy Urine VISTA NEGATIVE (< 500 ng/mL); Methadone Urine VISTA NEGATIVE (< 300 ng/mL); PCP Urine VISTA NEGATIVE (< 25 ng/mL); THC Urine VISTA NEGATIVE (< 50 ng/mL); Vista UDS pH Range 6
[2018-11-21 13:08] LABS: ALB/GLOB Ratio 0.9 RATIO (0.9-2.4); AST(SGOT) 14 U/L (15-37); Alanine Aminotransfer ALT/SGPT 21 U/L (13-56); Albumin, Serum 3.9 g/dL (3.2-5.0); Alkaline Phosphatase 76 U/L (45-117); Anion Gap 12 (5-15); BUN 13 mg/dL (7-18); BUN/Creat Ratio 17.4 RATIO (10-20); Calcium,Total 9.6 mg/dL (8.5-10.1); Chloride 97 mmol/L (98-107); Creatinine, Serum 0.75 mg/dL (0.55-1.02); EST Glomerular Filtration Rate 85 mL/min (>60); Est Glom Filt Rate - Afr Amer 103 mL/min (>60); Estimated Creatinine Clearance 73.19 ml/min; Globulin 4.2 g/dL (2.2-4.2); Glucose 117 mg/dL (74-106); Potassium 3.8 mmol/L (3.5-5.1); Protein, Total 8.1 g/dL (6.4-8.2); Sodium Level 137 mmol/L (136-145)
--- NOTE | 2018-11-21 13:28 | CM.ED ---
Social Work Note Discussed with physician who states that retirement staff brought the pt in and requested crisis. Claims that the pt has a plan and will not share intent. Physician would like crisis to evaluate as he anticipates she will need psychiatric hospitalization. Last 3 ED visits for SI or Mental Health have resulted in psychiatric hospitalization. SUKHJINDER Mays, ANN
--- NOTE | 2018-11-21 13:45 | ED.RN ---
crises called. will be enroute. no ETA
--- NOTE | 2018-11-21 14:19 | ED.DCSUM_ITS ---
- ER Visit Summary Date of Service: 11/21/18 Chief Complaint: Suicidal ideation History of Present Illness: The patient is a 53 F with suicidal ideation. The [facility] jail. She reports increasing thoughts of suicide but will not tell me if she has a plan. She denies any attempts. She has a history of bipolar disorder and MR. No other complaints. Physical Examination: Afebrile and vital signs unremarkable. She is tearful and mildly agitated, but redirectable. Head and neck are atraumatic. Cranial nerves grossly intact. Heart regular. Lungs clear. Abdomen soft and nontender. Moves all extremities. Test Results: CBC, CMP, tox screen, alcohol unremarkable. Emergency Department Course and Treatment: Patient had a sitter and suicide precautions. Vitals and laboratory studies were reassuring. She is cleared from a medical standpoint for transfer to a psychiatric facility for inpatient care. Crisis counselor was contacted to evaluate. Treatment Plan: As above Disposition: Transfer pending crisis evaluation Impression: 1. Suicidal ideation This note was generated with [employer] dictation software. It may contain incorrect words, spelling, and punctuation that were not noted in review of the chart prior to signing ED Disposition - Plan for ED Patient: Referrals: Kiana Chavarria MD [Primary Care Provider] -
== END 2018-11-21 19:40 ==
PROVIDERS: Emergency Provider Emergency Medicine; Family Provider Internal Medicine; PCP Internal Medicine
DX: R45.851 Suicidal ideations (principal); F31.9 Bipolar disorder, unspecified; I10 Essential (primary) hypertension; E11.9 Type 2 diabetes mellitus without complications; Z79.84 Long term (current) use of oral hypoglycemic drugs; Z79.899 Other long term (current) drug therapy; Z72.0 Tobacco use
CPT/HCPCS: 80053; 80307; 80320; 85025; 99284; G0480

== ENCOUNTER 2018-11-27 10:17 | Inpatient (IN) | payer MEDICAID, SELFPAY ==
[2018-11-21 11:51] VITALS: BMI 29.2
[2018-11-27] VITALS (8 sets, daily range): BP systolic 148–173; BP diastolic 82–104; PULSE 74–96; RESP 16–24; TEMP 36.7–37.3; O2SAT 94–100; BMI 27.9; BMI 28.0
[2018-11-27] MEDS: MethylPREDNISolone 125 MG/2 ML Vial IV (11:05)
[2018-11-27] MEDS: DiphenhydrAMINE 50 MG/ML Syringe IV ×3 (11:05→22:26)
[2018-11-27] MEDS: 0.9% Normal Saline 1,000 ML 1000 ML IV (11:05)
[2018-11-27 11:07] LABS: Absolute Lymphocyte Count 2.04 X10^3/ul (0.83-4.51); Basophil# 0.02 X10^3/uL; Basophil% 0.2 % (0-1); Eosinophil# 0.11 X10^3/uL; Eosinophils% 1.3 % (0-5); Hematocrit 43.6 % (37-47); Hemoglobin 15.6 g/dl (12.0-15.0); Lymphocyte # 2.04 X10^3/ul (4.0); Lymphocyte % 24.2 % (19-41); Mean Corp Hgb Conc 35.8 g/gl (32-36); Mean Corpuscular Hgb 31.3 pg (27.0-32.0); Mean Corpuscular Volume 87.6 fL (81-99); Monocyte# 1.22 X10^3/uL; Monocyte% 14.5 % (0-10); Neutrophil % 59.4 % (47-70); POSITIVE COUNT NO; POSITIVE DIFFERENTIAL NO; POSITIVE MORPHOLOGY NO; Platelet Count 220 K/mm3 (150-450); RBC Distribution Width CV 12.2 % (11.6-14.6); RBC Distribution Width SD 38.6 fl (35.1-43.9); Red Blood Count 4.98 M/mm3 (4.2-5.4); White Blood Count 8.4 K/mm3 (4.4-11.0)
[2018-11-27 11:22] LABS: Anion Gap 11 (5-15); BUN 13 mg/dL (7-18); BUN/Creat Ratio 18.2 RATIO (10-20); Chloride 89 mmol/L (98-107); Creatinine, Serum 0.72 mg/dL (0.55-1.02); EST Glomerular Filtration Rate 90 mL/min (>60); Est Glom Filt Rate - Afr Amer 109 mL/min (>60); Estimated Creatinine Clearance 76.24 ml/min; Glucose 111 mg/dL (74-106); Potassium 5.9 mmol/L (3.5-5.1); Sodium Level 126 mmol/L (136-145)
[2018-11-27 11:43] LABS: Alcohol, Blood (Medical)-Serum < 3.0 mg/dL
[2018-11-27 11:53] LABS: Pregnancy, Serum, hCG Quali. NEGATIVE Negative (0-9 Nonpreg)
[2018-11-27] MEDS: predniSONE 20 MG Tablet 60 MG PO (11:57)
--- NOTE | 2018-11-27 12:26 | ED.RN ---
iv SOLUMEDROL GIVEN. IV INFILTRATED. DR. PERRY AWARE.
[2018-11-27 12:51] LABS: Amphetamine Urine VISTA NEGATIVE (<1000 ng/mL); Barbiturate Urine VISTA NEGATIVE (< 200 ng/mL); Benzodiazepine Urine VISTA NEGATIVE (< 200 ng/mL); Cocaine Urine VISTA NEGATIVE (< 300 ng/mL); Ecstacy Urine VISTA NEGATIVE (< 500 ng/mL); Methadone Urine VISTA NEGATIVE (< 300 ng/mL); PCP Urine VISTA NEGATIVE (< 25 ng/mL); THC Urine VISTA NEGATIVE (< 50 ng/mL); Vista UDS pH Range 6
--- NOTE | 2018-11-27 13:46 | ED.VISSUMM ---
- ER Visit Summary Date of Service: 11/27/18 Chief Complaint: Angioedema History of Present Illness: The patient is a [address] Gutierrez. She has been on lisinopril for years. She has angioedema that began this morning. Took her last dose of lisinopril at 8 AM. She denies any difficulty breathing. Patient lives at a [facility]. The worker from he reports patient is having auditory hallucinations that are demanding that she cut off both her hands and kill herself for approximate the past week. She was discharged from a psychiatric facility yesterday. Patient denies any depression or suicidal ideation. Physical Examination: Vitals: Stable. Afebrile. General: Well-nourished and well-developed. Head: Normocephalic atraumatic. HEENT: Angioedema of her lips and tongue. Pharynx is spared. Neck: Supple, no lymphadenopathy. No JVD. Nontender. Cardiovascular: Regular rate and rhythm. No murmurs. Respiratory: No respiratory distress. Clear to auscultation bilaterally. Abdominal: Soft, nontender, nondistended, normal bowel sounds. No guarding, rebound, or peritoneal signs. Back: Nontender. Extremities: Nontender, no edema. Skin: Normal color, no rash. Neurologic: Alert and oriented ?3. Cranial nerves II through XII are intact. Normal strength and sensation. Psych: Flat affect. Denies suicidal or homicidal ideation. She does admit to auditory hallucinations. Flow of thought is tangential. Insight and judgment is very poor. Test Results: CBC shows a hemoglobin of 15.6 monocytes of 15. Chem-7 shows a sodium 126, potassium of 5.9 (moderately hemolyzed) click, chloride of 89, glucose 111. test is negative. Tox screen is negative. Alcohol level 0. Emergency Department Course and Treatment: Patient was treated Benadryl, Solu-Medrol, and Pepcid IV. She was given dose of prednisone p.o. Treatment Plan: Patient was discussed with Dr. Polanco. She will be admitted for observation for her angioedema and be seen by mental health for disposition for her auditory hallucinations. Disposition: Admitted in improved condition. Impression: 1. Angioedema on lisinopril. 2. Auditory hallucinations. This note was generated with [employer] software. It may contain incorrect words, spelling, and punctuation that were not noted in review of the chart prior to signing ED Disposition - Plan for ED Patient: Referrals: Kiana Chavarria MD [Primary Care Provider] -
--- NOTE | 2018-11-27 13:47 | CASEMGMT ---
RN KIM Assessment Introduced role of RN KIM to Caridad Shen- staff from assisted, patient currently sleeping. Care providers, pharmacy, and demographics verified. Presentation: To be admitted for Angioedema with [facility] to see patient in hospital for disposition for her auditory hallucinations per ER MD. Sent by for Lip/Tongue Swelling this AM, patient on Lisinopril for HTN per Caridad. Resides in [facility], h/o bipolar & MR. Suicidal Ideation 11/21/18 transferred to [facility] and discharged from Psych facility yesterday. PCP: Dr Kiana Chavarria Specialists: Psych- Psychiatrist Dr Jimenez Preferred Pharmacy: [facility] Insurance: [employer] Prescription Benefit: Yes LNOK: Patient was just given a Guardian by the court yesterday 11/27/18 (per Caridad Shen), Brina [facility] #[phone], ext [phone]. Per Caridad, patient does not know yet that she was warded a guardian by the court. Living Arrangements: Lives at assisted, Independent with ambulation and ADL's. Transportation: Provided by correction DME: None HHC: None SNF: None DC PLAN: Back to [facility] & TBD by Mental health d/t auditory hallucinations. SW to follow for any coordination needs, No anticipated needs identified. MELODIE Bergeron
--- NOTE | 2018-11-27 13:49 | ED.DCSUM_ITS ---
- ER Visit Summary Date of Service: 11/27/18 Chief Complaint: Angioedema History of Present Illness: The patient is a [address] Gutierrez. She has been on lisinopril for years. She has angioedema that began this morning. Took her last dose of lisinopril at 8 AM. She denies any difficulty breathing. Patient lives at a correction. The worker from he reports patient is having auditory hallucinations that are demanding that she cut off both her hands and kill herself for approximate the past week. She was discharged from a psychiatric facility yesterday. Patient denies any depression or suicidal ideation. Physical Examination: Vitals: Stable. Afebrile. General: Well-nourished and well-developed. Head: Normocephalic atraumatic. HEENT: Angioedema of her lips and tongue. Pharynx is spared. Neck: Supple, no lymphadenopathy. No JVD. Nontender. Cardiovascular: Regular rate and rhythm. No murmurs. Respiratory: No respiratory distress. Clear to auscultation bilaterally. Abdominal: Soft, nontender, nondistended, normal bowel sounds. No guarding, rebound, or peritoneal signs. Back: Nontender. Extremities: Nontender, no edema. Skin: Normal color, no rash. Neurologic: Alert and oriented ?3. Cranial nerves II through XII are intact. Normal strength and sensation. Psych: Flat affect. Denies suicidal or homicidal ideation. She does admit to auditory hallucinations. Flow of thought is tangential. Insight and judgment is very poor. Test Results: CBC shows a hemoglobin of 15.6 monocytes of 15. Chem-7 shows a sodium 126, potassium of 5.9 (moderately hemolyzed) click, chloride of 89, glucose 111. test is negative. Tox screen is negative. Alcohol level 0. Emergency Department Course and Treatment: Patient was treated Benadryl, Solu- Medrol, and Pepcid IV. She was given dose of prednisone p.o. Treatment Plan: Patient was discussed with Dr. Polanco. She will be admitted for observation for her angioedema and be seen by mental health for disposition for her auditory hallucinations. Disposition: Admitted in improved condition. Impression: 1. Angioedema on lisinopril. 2. Auditory hallucinations. This note was generated with [employer] software. It may contain incorrect words, spelling, and punctuation that were not noted in review of the chart prior to signing ED Disposition - Plan for ED Patient: Referrals: Kiana Chavarria MD [Primary Care Provider] -
--- NOTE | 2018-11-27 13:55 | NURSING ---
MED SURG ANGIOEDEMA, HYPONATREMIA ADELIA
--- NOTE | 2018-11-27 14:17 | PCM.HP.STD ---
Problem List (1) Angioedema Status: Acute (2) Suicidal ideation Status: Acute History of Present Illness Date of Admission: 11/27/18 Chief Complaint: facial swelling. The patient is a 53 year old F who was just discharged from a psychiatric unit on the fifth. Patient had suicidal ideation and was admitted last week. Patient had been on clonazepam as well as Risperdal. She was changed over to Lexapro. Today, patient developed facial swelling and was directed to the emergency room. Prior to her being going her to kill herself. The voices are telling the patient to slit her wrist. This is from the patient's acute care nursing assistant who was present in the room. Patient is somnolent from having just received Benadryl before my arrival. Last time the patient was admitted to psychiatric unit, last week, patient was having hallucinations telling her to kill herself but apparently was not volunteering how they are telling her to kill herself at that time. In the emergency room, patient was hemodynamic stable, but received Solu-Medrol, Pepcid and Benadryl. Currently she is sleeping after the Benadryl. [] Past Medical History Past Medical History (Chronic Problems): Chronic Problems Mental deficiency (Chronic) Mood disorder (Chronic) Hypertension (Chronic) Diabetes (Chronic) Medical History: Medical History (Last Updated 11/27/18 @ 14:21 by Saran Polanco DO) DM2 (diabetes mellitus, type 2) E11.9 Schizophrenia F20.9 HTN (hypertension) I10 Allergies lithium Allergy (Verified 11/27/18 10:18) Anaphylaxis sertraline HCl [From Zoloft] Allergy (Verified 11/27/18 10:18) Anaphylaxis Home Medications: Ambulatory Orders Medication Instructions Recorded Divalproex Sodium [Depakote] 500 mg PO DAILY 03/13/18 Metformin HCl [Glucophage] 500 mg PO BIDCM 03/13/18 Oxybutynin [Ditropan] 5 mg PO TID 03/13/18 Divalproex Sodium [Depakote] 1,000 mg PO QHS 04/25/18 Lisinopril 20 mg PO BID 04/25/18 Aspirin [Aspirin EC] 81 mg PO DAILY 11/21/18 Pantoprazole Sodium [Protonix] 40 mg PO DAILY 11/21/18 Simvastatin 10 mg PO QHS 11/21/18 Docusate Sodium 100 mg PO BID 11/27/18 Escitalopram Oxalate 10 mg PO QHS 11/27/18 Smoking Status: Current every day smoker - *Family History Maternal History Items: Unknown Review of Systems Comment: Unable to obtain review of systems, family history, social history as she is somnolent. VTE Information - Inpt Only VTE Present on Admission: No VTE Mechan Device Prophylaxis: None VTE Pharm Prophylaxis ordered?: Yes Patient Problems: Active and Suspected Problems Angioedema (Acute) Suicidal ideation (Acute) - Physical Exam General: - - Somnolent. Would not wake to voice nor or tapping her shoulder. HEENT: - - Prominent lip swelling upper and lower. Tongue slightly protruded at the mouth. Oral: Moist Mucosa Neck: No Nodes, Thyroid Normal Size and Texture Lungs: Clear to auscultation, Normal air movement, No rhonchi, No wheeze Cardiovascular: Regular rate, Regular Rhythm, Normal S1, Normal S2, No murmurs Abdomen: Bowel Sounds Present, Soft, Non Tender, Non-Distended, No Hepato-splenomegaly Extremities: No clubbing, No edema, No Calf Tenderness Skin: No rashes, No breakdown Musculoskeletal: No Tenderness to Palpation of Joints or Extremities, No Muscle Wasting Neurological: Neuro grossly intact, Muscle tone normal Vital Signs Temp Pulse Resp BP Pulse Ox 36.7 C 86 24 H 160/104 H 98 11/27/18 10:18 11/27/18 12:24 11/27/18 12:24 11/27/18 12:24 11/27/18 12:24 Oxygen Delivery Method Room Air Weight: 73.936 kg Body Mass Index (BMI) 27.9 Finger Stick Blood Glucose 186 Laboratory Tests Past 24 Hrs 11/27/18 11/27/18 11/27/18 11:00 11:00 11:00 WBC 8.4 RBC 4.98 Hgb 15.6 H Hct 43.6 MCV 87.6 MCH 31.3 MCHC 35.8 RDW 12.2 RDW Differential 38.6 Plt Count 220 MPV 11.0 Immature Gran % (Auto) 0.400 Neut % (Auto) 59.4 Lymph % (Auto) 24.2 [place] % (Auto) 14.5 H Eos % (Auto) 1.3 Baso % (Auto) 0.2 Absolute Neuts (auto) 5.0 Absolute Lymphs (auto) 2.04 Total Counted Not Reportable Sodium 126 L Potassium 5.9 H Chloride 89 L Carbon Dioxide 26.0 Anion Gap 11 BUN 13 Creatinine 0.72 Estim Creat Clear Calc 76.24 Est GFR (MDRD) Af Amer 109 Est GFR (MDRD) Non-Af 90 BUN/Creatinine Ratio 18.2 Glucose 111 H Calcium 10.0 Serum , Qual Urine Opiates Screen Urine Methadone Screen Ur Barbiturates Screen Ur Phencyclidine Scrn Ur Amphetamines Screen U Methamphetamin-MDMA U Benzodiazepines Scrn Urine Cocaine Screen U Cannabinoids Screen Ur Drug Screen Comment Ethyl Alcohol < 3.0 11/27/18 11/27/18 11:00 12:15 WBC RBC Hgb Hct MCV MCH MCHC RDW RDW Differential Plt Count MPV Immature Gran % (Auto) Neut % (Auto) Lymph % (Auto) [place] % (Auto) Eos % (Auto) Baso % (Auto) Absolute Neuts (auto) Absolute Lymphs (auto) Total Counted Sodium Potassium Chloride Carbon Dioxide Anion Gap BUN Creatinine Estim Creat Clear Calc Est GFR (MDRD) Af Amer Est GFR (MDRD) Non-Af BUN/Creatinine Ratio Glucose Calcium Serum , Qual NEGATIVE Urine Opiates Screen NEGATIVE Urine Methadone Screen NEGATIVE Ur Barbiturates Screen NEGATIVE Ur Phencyclidine Scrn NEGATIVE Ur Amphetamines Screen NEGATIVE U Methamphetamin-MDMA NEGATIVE U Benzodiazepines Scrn NEGATIVE Urine Cocaine Screen NEGATIVE U Cannabinoids Screen NEGATIVE Ur Drug Screen Comment Ethyl Alcohol Assessment/Plan All Active Problems Angioedema (Acute) Suicidal ideation (Acute) Syncope (Ruled-out) 1. acute angioedema: Could be lisinopril as it is commonly associated angioedema, however, patient was started on Lexapro and patient has feeling which is described as anaphylaxis. That was just started this past admission at a psychiatric unit. I am going to discontinue both his medication as is unclear unclear which one is the culprit though impairment could be the Lexapro. She will be continued on Solu-Medrol, Benadryl and Pepcid all of which will be scheduled for now. And depending on her clinical responses can be de-escalated at a later point. We will put the patient on continuous pulse ox for now just in case there is any airway compromise. Patient seems to be maintaining her sats while she is sleeping. 2. Hyponatremia: We will give the patient IV fluids and reevaluate. Unclear etiology as it does not appear that she is on HCTZ at this time. 3. Hyperkalemia: Lab error. We will review check labs this evening. 4. Suicidal ideation: Patient was expressing that her voices in her head were telling her to kill herself by slitting her wrists. Patient will need to be evaluated by crisis and gastric unit when she is medically stable. I will not involve crisis at this time because the patient is certainly not medically stable. That will need to be reassessed on a daily basis when Crisis can be involved. Patient will require a sitter at bedside given the suicidal ideation. 5. DVT prophylaxis with Lovenox. Expected length of stay is 48 hours. Code Visit Inpatient E&M: 13135 Init Hosp L3
--- NOTE | 2018-11-27 14:39 | ED.RN ---
Dr Simms states pt denied suidical ideations and also stated social work case manager was in room during the entire assessment. He did not believe the patient needed a sitter for safety reasons.
[2018-11-27 16:11] LABS: Bedside Glucose 174 mg/dL (70-110)
[2018-11-27] MEDS: Insulin Lispro 100 UNIT/ML INSULN.PEN SQ (16:12)
[2018-11-27] MEDS: 0.9% Normal Saline 1,000 ML 150 ML IV (16:13)
[2018-11-27] MEDS: MethylPREDNISolone 125 MG/2 ML Vial 60 MG IV (17:40)
[2018-11-27 19:21] LABS: Anion Gap 11 (5-15); BUN 12 mg/dL (7-18); BUN/Creat Ratio 15.2 RATIO (10-20); Calcium,Total 9.2 mg/dL (8.5-10.1); Chloride 94 mmol/L (98-107); Creatinine, Serum 0.79 mg/dL (0.55-1.02); EST Glomerular Filtration Rate 80 mL/min (>60); Est Glom Filt Rate - Afr Amer 97 mL/min (>60); Estimated Creatinine Clearance 69.48 ml/min; Glucose 192 mg/dL (74-106); Potassium 4.7 mmol/L (3.5-5.1); Sodium Level 126 mmol/L (136-145)
[2018-11-27] MEDS: Atorvastatin Calcium 10 MG Tablet 5 MG PO (22:26)
[2018-11-27] MEDS: Divalproex Sodium 250 MG Tablet 1000 MG PO (22:26)
[2018-11-27] MEDS: Oxybutynin 5 MG Tablet PO (22:26)
[2018-11-27] MEDS: Docusate Sodium 100 MG Capsule PO (22:27)
[2018-11-27 23:11] LABS: Bedside Glucose 151 mg/dL (70-110)
[2018-11-28] MEDS: MethylPREDNISolone 125 MG/2 ML Vial 60 MG IV ×5 (00:18→23:38)
[2018-11-28 01:40] VITALS: O2SAT 96
[2018-11-28 03:30] VITALS: BP 128/102; PULSE 120; RESP 16; TEMP 36.8; O2SAT 98
[2018-11-28] MEDS: Oxybutynin 5 MG Tablet PO ×3 (05:30→21:50)
[2018-11-28] MEDS: DiphenhydrAMINE 50 MG/ML Syringe IV ×4 (05:31→23:37)
[2018-11-28 06:47] LABS: Absolute Lymphocyte Count 0.98 X10^3/ul (0.83-4.51); Absolute Neutrophil Count 17.6 X10^3/uL (2.0-7.7); Basophil# 0.01 X10^3/uL; Basophil% 0.1 % (0-1); Hematocrit 42.1 % (37-47); Hemoglobin 14.7 g/dl (12.0-15.0); Lymphocyte # 0.98 X10^3/ul (4.0); Mean Corp Hgb Conc 34.9 g/gl (32-36); Mean Corpuscular Hgb 31.1 pg (27.0-32.0); Mean Corpuscular Volume 89.2 fL (81-99); Mean Platelet Vol. 10.9 fl (6.2-12.0); Monocyte# 0.93 X10^3/uL; Monocyte% 4.8 % (0-10); Neutrophil # 17.58 X10^3/uL (2.7-7.7); Neutrophil % 89.8 % (47-70); Platelet Count 226 K/mm3 (150-450); RBC Distribution Width CV 12.4 % (11.6-14.6); RBC Distribution Width SD 39.9 fl (35.1-43.9); Red Blood Count 4.72 M/mm3 (4.2-5.4); White Blood Count 19.6 K/mm3 (4.4-11.0)
[2018-11-28 06:49] LABS: POSITIVE COUNT NO; POSITIVE DIFFERENTIAL NO; POSITIVE MORPHOLOGY NO
[2018-11-28 06:53] LABS: Anion Gap 13 (5-15); BUN 18 mg/dL (7-18); BUN/Creat Ratio 20.2 RATIO (10-20); Calcium,Total 9.1 mg/dL (8.5-10.1); Chloride 96 mmol/L (98-107); Creatinine, Serum 0.89 mg/dL (0.55-1.02); EST Glomerular Filtration Rate 70 mL/min (>60); Est Glom Filt Rate - Afr Amer 84 mL/min (>60); Estimated Creatinine Clearance 61.67 ml/min; Glucose 178 mg/dL (74-106); Potassium 4.8 mmol/L (3.5-5.1); Sodium Level 129 mmol/L (136-145)
[2018-11-28 07:00] LABS: Bedside Glucose 231 mg/dL (70-110)
[2018-11-28] MEDS: Insulin Lispro 100 UNIT/ML INSULN.PEN SQ ×3 (07:29→16:58)
[2018-11-28 08:44] VITALS: BP 178/117; PULSE 119; RESP 18; TEMP 36.7; O2SAT 98
[2018-11-28] MEDS: Aspirin E.C. 81 MG Tablet PO (08:50)
[2018-11-28] MEDS: Docusate Sodium 100 MG Capsule PO ×2 (08:50→21:50)
[2018-11-28] MEDS: Divalproex Sodium 250 MG Tablet 500 MG PO (08:50)
[2018-11-28] MEDS: Pantoprazole Sodium 40 MG Tablet PO (08:51)
[2018-11-28] MEDS: Enoxaparin 40 MG/0.4 ML Syringe SC (08:51)
[2018-11-28] MEDS: amLODIPine 5 MG Tablet PO ×2 (09:53→15:15)
[2018-11-28] MEDS: Famotidine 20 MG Tablet PO ×2 (09:56→21:50)
[2018-11-28 12:01] LABS: Bedside Glucose 211 mg/dL (70-110)
[2018-11-28 14:10] VITALS: BP 181/122; PULSE 101; RESP 18; TEMP 36.4; O2SAT 94
--- NOTE | 2018-11-28 15:01 | PN_ITS ---
<Estevan Grigsby - Last Filed: 11/28/18 14:56> Patient Problems: Active and Suspected Problems (Last Updated 11/27/18 @ 14:21 by Saran Polanco DO) Angioedema (Acute) Suicidal ideation (Acute) Subjective: Pt resting comfortably in bed, NAD. Still with significant swelling of the lips. Pt appears calm, denies SI, intention, denies intent for any self injury, denies hearing voices. No SOB/cough. - Physical Exam General: Alert, Oriented x3, Cooperative HEENT: Atraumatic, PERRLA, EOMI, Normocephalic, - - angioedema Neck: Supple, No JVD, Negative Carotid Bruits Lungs: Clear to auscultation, Normal air movement Cardiovascular: Regular rate, No murmurs Abdomen: Bowel Sounds Present, Soft, Non Tender Extremities: No edema, Capillary Refill Less than 3 Seconds Skin: No rashes, No breakdown Musculoskeletal: No Tenderness to Palpation of Joints or Extremities Neurological: Cranial nerves II-XII grossly intact Psych/Mental Status: Normal Affect, Appropriate Vital Signs Temp Pulse Resp BP Pulse Ox 97.6 F L 101 H 18 181/122 H 94 11/28/18 14:10 11/28/18 14:10 11/28/18 14:10 11/28/18 14:10 11/28/18 14:10 Oxygen Delivery Method Room Air Weight: 162 lb 14.746 oz Body Mass Index (BMI) 27.9 Finger Stick Blood Glucose 186 Intake and Output for Last 24 Hours 11/26/18 11/27/18 11/28/18 23:59 23:59 23:59 Intake Total 2179 / 2179 Balance 2179 / 2179 Laboratory Tests Past 24 Hrs 11/27/18 11/28/18 11/28/18 18:30 06:15 06:15 WBC 19.6 H RBC 4.72 Hgb 14.7 Hct 42.1 MCV 89.2 MCH 31.1 MCHC 34.9 RDW 12.4 RDW Differential 39.9 Plt Count 226 MPV 10.9 Immature Gran % (Auto) 0.300 Neut % (Auto) 89.8 H Lymph % (Auto) 5.0 L Kimball % (Auto) 4.8 Eos % (Auto) 0.0 Baso % (Auto) 0.1 Absolute Neuts (auto) 17.6 H Absolute Lymphs (auto) 0.98 Total Counted Not Reportable Sodium 126 L 129 L Potassium 4.7 4.8 Chloride 94 L 96 L Carbon Dioxide 21.0 20.0 L Anion Gap 11 13 BUN 12 18 Creatinine 0.79 0.89 Estim Creat Clear Calc 69.48 61.67 Est GFR (MDRD) Af Amer 97 84 Est GFR (MDRD) Non-Af 80 70 BUN/Creatinine Ratio 15.2 20.2 H Glucose 192 H 178 H Calcium 9.2 9.1 POC Glucose 11/28/18 11/28/18 11/27/18 11:32 06:55 22:54 POC Glucose 211 H 231 H 151 H 11/27/18 16:08 POC Glucose 174 H Medical Necessity - Tobacco Use Smoking Status: Current every day smoker Tobacco Use: Cigarettes Assessment/Plan All Active Problems (Last Updated 11/27/18 @ 14:21 by Saran Polanco DO) Angioedema (Acute) Suicidal ideation (Acute) Syncope (Ruled-out) 1. Angioedema - david-i stopped. lexapro (recently started) stopped. Significant swelling. Continue solumedrol, benadryl, pepcid 2. Bipolar, hallucinations, SI - stable. depakote. Crisis eval prior to DC with recent SI and hospitalization. prn haldol, however affect is pleasant. 3. Hyponatremia - possibly 2/2 psych meds - no further lexapro - improving. 4. HLD - statin 5. DMt2 - metformin + ssi DVT ppx: lovenox DC planning: likely home tomorrow, crisis eval in AM. This patient was seen by Estevan Grigsby PA-C under the supervision of Doctor Carmine pat. <Zafar Conn F - Last Filed: 11/28/18 17:46> - Physical Exam Vital Signs Temp Pulse Resp BP Pulse Ox 97.6 F L 101 H 18 181/122 H 94 11/28/18 14:10 11/28/18 14:10 11/28/18 14:10 11/28/18 14:10 11/28/18 14:10 Oxygen Delivery Method Room Air Weight: 162 lb 14.746 oz Body Mass Index (BMI) 27.9 Finger Stick Blood Glucose 186 Intake and Output for Last 24 Hours 11/26/18 11/27/18 11/28/18 23:59 23:59 23:59 Intake Total 2179 / 2179 Balance 2179 / 217 Laboratory Tests Past 24 Hrs 11/27/18 11/28/18 11/28/18 18:30 06:15 06:15 WBC 19.6 H RBC 4.72 Hgb 14.7 Hct 42.1 MCV 89.2 MCH 31.1 MCHC 34.9 RDW 12.4 RDW Differential 39.9 Plt Count 226 MPV 10.9 Immature Gran % (Auto) 0.300 Neut % (Auto) 89.8 H Lymph % (Auto) 5.0 L [place] % (Auto) 4.8 Eos % (Auto) 0.0 Baso % (Auto) 0.1 Absolute Neuts (auto) 17.6 H Absolute Lymphs (auto) 0.98 Total Counted Not Reportable Sodium 126 L 129 L Potassium 4.7 4.8 Chloride 94 L 96 L Carbon Dioxide 21.0 20.0 L Anion Gap 11 13 BUN 12 18 Creatinine 0.79 0.89 Estim Creat Clear Calc 69.48 61.67 Est GFR (MDRD) Af Amer 97 84 Est GFR (MDRD) Non-Af 80 70 BUN/Creatinine Ratio 15.2 20.2 H Glucose 192 H 178 H Calcium 9.2 9.1 POC Glucose 11/28/18 11/28/18 11/28/18 16:56 11:32 06:55 POC Glucose 189 H 211 H 231 H 11/27/18 22:54 POC Glucose 151 H Code Visit Addendum: Dr. Conn I personally examined the patient and reviewed the chart. I agree with the above. 53-year-old female who was discharged from a psychiatric unit on the for suicidal ideation presented to the ER for facial swelling. She was on lisinopril and Lexapro and those were both stopped. Lisinopril is likely the cause for her angioedema and the Lexapro is the likely cause for her hyponatremia therefore will discontinue both of them. She is currently denying any suicidal ideation however will have crisis evaluate her in the morning since she was recently discharged from psychiatric unit. In the meantime we will continue with Solu-Medrol, Pepcid, and Benadryl. Inpatient E&M: 26691 Subs Hosp L2
--- NOTE | 2018-11-28 16:46 | CHAPLAIN ---
Type of Pastoral Visit _x__ Initial Visit ___ Follow-up Visit ___ On-call Visit ___ General Patient Visit ___ Spiritual Assessment ___ Family Conference ___ Bereavement ___ Rapid Response ___ Code Blue ___ Other (describe below) Pastoral Care Referral From _x__ Patient ___ Family ___ Nurse ___ Physician ___ Cloth Grader ___ Swinging Cut Off Saw Operator ___ Other (describe below) Sacrament/Intervention _x__ Active listening ___ Anointing ___ Samaritan ___ Bereavement ___ Communion ___ Celestina exploration ___ ___ Life review _x__ Prayer ___ Reconciliation ___ Sacrament of Sick _x__ Supportive presence ___ Wedding ___ Other (describe below) Pastoral Comments
[2018-11-28 17:10] LABS: Bedside Glucose 189 mg/dL (70-110)
--- NOTE | 2018-11-28 17:31 | NURSING ---
Brina Fox called and states that she is patient's guardian through the counseling center. She states that she wants staff to know that it is ok to give information to Bee Castillo as she is the nurse outreach case manager at the counseling center. Brina states she will send over paperwork to fax machine on [employer].
[2018-11-28 20:16] VITALS: BP 127/62; PULSE 84; RESP 18; TEMP 36.8; O2SAT 96
[2018-11-28] MEDS: Divalproex Sodium 250 MG Tablet 1000 MG PO (21:51)
[2018-11-28] MEDS: Atorvastatin Calcium 10 MG Tablet 5 MG PO (21:52)
[2018-11-28 22:55] LABS: Bedside Glucose 228 mg/dL (70-110)
[2018-11-29 02:25] VITALS: BP 163/93; PULSE 84; RESP 18; TEMP 36.9; O2SAT 97
[2018-11-29] MEDS: MethylPREDNISolone 125 MG/2 ML Vial 60 MG IV ×2 (05:22→11:22)
[2018-11-29] MEDS: DiphenhydrAMINE 50 MG/ML Syringe IV ×2 (05:22→11:22)
[2018-11-29] MEDS: Oxybutynin 5 MG Tablet PO (05:22)
[2018-11-29 06:03] LABS: Anion Gap 13 (5-15); BUN 15 mg/dL (7-18); Calcium,Total 9.2 mg/dL (8.5-10.1); Chloride 89 mmol/L (98-107); Creatinine, Serum 0.79 mg/dL (0.55-1.02); EST Glomerular Filtration Rate 80 mL/min (>60); Est Glom Filt Rate - Afr Amer 97 mL/min (>60); Estimated Creatinine Clearance 69.48 ml/min; Glucose 230 mg/dL (74-106); Potassium 4.6 mmol/L (3.5-5.1); Sodium Level 127 mmol/L (136-145)
[2018-11-29] MEDS: Insulin Lispro 100 UNIT/ML INSULN.PEN SQ ×2 (06:49→11:22)
[2018-11-29 07:11] LABS: Bedside Glucose 253 mg/dL (70-110)
[2018-11-29] MEDS: Aspirin E.C. 81 MG Tablet PO (07:44)
--- NOTE | 2018-11-29 09:46 | CASEMGMT ---
Addendum entered by Jael Mcallister 11/29/18 13:16: SW did call [facility] again and left a message for Roxana Adame, color making supervisor for Brina Fox. Message left inquiring who to call at the residential in regard to this pt, when she is ready to return--should she not need psych placement. LAURENT Esqueda, PROPERTY CONDITION ASSESSOR Original Note: Addendum entered by Jael Mcallister 11/29/18 13:08: SW called pt's guardian, Brina Marxz. Message left inquiring the process to get pt back to the residential if she is cleared by crisis. If she does not call this SW back before Jessica gets here, SW will also speak w/Jessica in regard to this. LAURENT Esqueda, PROPERTY CONDITION ASSESSOR Original Note: As per MARCUS Barreto, pt is ready to be seen by crisis. SW called crisis at [facility], spoke w/Jessica. She states she will be here at 1:15pm. JACIEL let productivity engineer know. LAURENT Esqueda, PROPERTY CONDITION ASSESSOR
[2018-11-29 10:11] VITALS: BP 158/88; PULSE 95; RESP 18; TEMP 37.1; O2SAT 94
[2018-11-29] MEDS: Docusate Sodium 100 MG Capsule PO (10:13)
[2018-11-29] MEDS: Divalproex Sodium 250 MG Tablet 500 MG PO (10:13)
[2018-11-29] MEDS: Enoxaparin 40 MG/0.4 ML Syringe SC (10:13)
[2018-11-29] MEDS: Pantoprazole Sodium 40 MG Tablet PO (10:13)
[2018-11-29] MEDS: Famotidine 20 MG Tablet PO (10:15)
[2018-11-29] MEDS: amLODIPine 10 MG Tablet PO (10:15)
--- NOTE | 2018-11-29 11:15 | DCINST_ITS ---
- Discharge Diagnoses Current Active Problems: Current Active and Chronic Problems (Last Updated 11/27/18 @ 14:21 by Saran Polanco DO) Angioedema (Acute) Suicidal ideation (Acute) You will use the following diet at home:: Calorie/Carbohydrate Controlled (specify 1200, 1400, etc) - 1800 candice / day, Cardiac Your food should be the consistency of: Regular Your liquids should be the consistency of: Regular/Thin Discharge Activity: Return to Normal Activity Allergies/Adverse Reactions: Allergies lithium Allergy (Verified 11/27/18 10:18) Anaphylaxis sertraline HCl [From Zoloft] Allergy (Verified 11/27/18 10:18) Anaphylaxis Medications to take at Discharge Divalproex Sodium [Depakote] 500 mg PO DAILY 03/13/18 Metformin HCl [Glucophage] 500 mg PO BIDCM 03/13/18 Oxybutynin [Ditropan] 5 mg PO TID 03/13/18 Divalproex Sodium [Depakote] 1,000 mg PO QHS 04/25/18 Aspirin [Aspirin EC] 81 mg PO DAILY 11/21/18 Pantoprazole Sodium [Protonix] 40 mg PO DAILY 11/21/18 Simvastatin 10 mg PO QHS 11/21/18 Docusate Sodium 100 mg PO BID 11/27/18 Amlodipine [Norvasc] 10 mg PO DAILY #30 tablet 11/29/18 Famotidine [Pepcid] 20 mg PO BID #10 tablet 11/29/18 Prednisone 40 mg PO DAILY #10 tablet 11/29/18 The following prescriptions were given: Amlodipine [Norvasc] 10 mg PO DAILY #30 tablet Famotidine [Pepcid] 20 mg PO BID #10 tablet Prednisone 40 mg PO DAILY #10 tablet Primary Care Physician: Kiana Chavarria MD [Primary Care Provider] - Please follow up with your Primary Care Physician in: 1-2 weeks Test Results: Test results from this visit will be discussed in further detail at your follow- up appointment, if applicable. Please Follow Up With: Psychiatrist When: Keep previous appointment Proposed Discharge Date: 11/29/18
[2018-11-29] MEDS: 0.9% NaCl Peripheral Flush Adult/Peds IV (11:22)
[2018-11-29 11:36] LABS: Bedside Glucose 252 mg/dL (70-110)
--- NOTE | 2018-11-29 13:11 | PCM.DC.SUM ---
<Estevan Grigsby - Last Filed: 11/29/18 13:11> Discharge Date and Diagnosis - Problem List Patient Problems: Active and Suspected Problems (Last Updated 11/27/18 @ 14:21 by Saran Polanco DO) Angioedema (Acute) Suicidal ideation (Acute) Date of Admission: 11/27/18 Date of Discharge: 11/29/18 - Primary Discharge Diagnosis Active and Suspected Problems (Last Updated 11/27/18 @ 14:21 by Saran Polanco DO) Angioedema (Acute) Suicidal ideation Hyponatremia HTN Bipolar disorder Hallucinations HLD DMt2 - Secondary Discharge Diagnosis Chronic Problems (Last Updated 11/27/18 @ 14:21 by Saran Polanco DO) Diabetes (Chronic) Hypertension (Chronic) Mood disorder (Chronic) Mental deficiency (Chronic) Hospital Course and Treatment Consultations 11/29/18 09:44 Consult: Mental Health/Crisis Routine Reason for consult?: Crisis to assess the need for psych placement Date Notified:: 11/29/18 Time notified:: 09:40 Operations: None Procedures: None Summary of Care Provided: Hospital Course: The patient is a 53 year old F who was discharged from a psychiatric facility the day prior to presentation to the ER where she was treated for hallucinations and suicidal ideations, who presented to the ER with lip swelling that began the AM of presentation. Her symptoms appeared c/w angioedema without airway compromise. She had been taking lisinopril for many years, but also at her psych admission had been started on lexapro. Both lisinopril and lexapro were discontinued. She was treated with solumedrol, benadryl, and pepcid. Her angioedema responded well over the next two days. Without the lisinopril her BP was uncontrolled, so she was started on norvasc. She will continue norvasc and no longer take lexapro or lisinopril at [facility]. She was evaluated by crisis prior to discharge to determine if she required further psychiatric admission. Her SI and hallucinations had resolved. She was discharged back to her skilled nursing in stable condition. She will follow up with her psychiatrist next week as previously scheduled, and follow up with her PCP in 1-2 weeks. This patient was seen by Estevan Grigsby PA-C under the supervision of Dr. Conn. [] Patient Problems: Active and Suspected Problems (Last Updated 11/27/18 @ 14:21 by Saran Polanco DO) Angioedema (Acute) Suicidal ideation (Acute) - Physical Exam General: Alert, Oriented x3, Cooperative HEENT: Atraumatic, PERRLA, EOMI, Normocephalic, - - slight lower lip swelling Neck: Supple, No JVD, Negative Carotid Bruits Lungs: Clear to auscultation, Normal air movement Cardiovascular: Regular rate, No murmurs Abdomen: Bowel Sounds Present, Soft, Non Tender Extremities: No edema, Capillary Refill Less than 3 Seconds Skin: No rashes, No breakdown Musculoskeletal: No Tenderness to Palpation of Joints or Extremities Neurological: Cranial nerves II-XII grossly intact Psych/Mental Status: Normal Affect, Appropriate Vital Signs Temp Pulse Resp BP Pulse Ox 98.7 F 95 18 158/88 H 94 11/29/18 10:11 11/29/18 10:11 11/29/18 10:11 11/29/18 10:11 11/29/18 10:11 Oxygen Delivery Method Room Air Weight: 162 lb 14.746 oz Body Mass Index (BMI) 27.9 Finger Stick Blood Glucose 186 Intake and Output for Last 24 Hours 11/27/18 11/28/18 11/29/18 23:59 23:59 23:59 Intake Total 2779 / 2779 1700 / 1700 Balance 2779 / 2779 1700 / 1700 Laboratory Tests Past 24 Hrs 11/29/18 05:15 Sodium 127 L Potassium 4.6 Chloride 89 L Carbon Dioxide 25.0 Anion Gap 13 BUN 15 Creatinine 0.79 Estim Creat Clear Calc 69.48 Est GFR (MDRD) Af Amer 97 Est GFR (MDRD) Non-Af 80 BUN/Creatinine Ratio 19.0 Glucose 230 H Calcium 9.2 POC Glucose 11/29/18 11/29/18 11/28/18 11:20 06:47 21:55 POC Glucose 252 H 253 H 228 H 11/28/18 16:56 POC Glucose 189 H Discharge Diet: Low fat/ Low Cholesterol, 1800 Calorie Control Diet, 2000 mg Sodium Diet Discharge Activity: Return to Normal Activity Home Medications: Medications to take at Discharge Divalproex Sodium [Depakote] 500 mg PO DAILY 03/13/18 Metformin HCl [Glucophage] 500 mg PO BIDCM 03/13/18 Oxybutynin [Ditropan] 5 mg PO TID 03/13/18 Divalproex Sodium [Depakote] 1,000 mg PO QHS 04/25/18 Aspirin [Aspirin EC] 81 mg PO DAILY 11/21/18 Pantoprazole Sodium [Protonix] 40 mg PO DAILY 11/21/18 Simvastatin 10 mg PO QHS 11/21/18 Docusate Sodium 100 mg PO BID 11/27/18 Amlodipine [Norvasc] 10 mg PO DAILY #30 tablet 11/29/18 Famotidine [Pepcid] 20 mg PO BID #10 tablet 11/29/18 Prednisone 40 mg PO DAILY #10 tablet 11/29/18 Following Prescrptions Were Given to Patient: Amlodipine [Norvasc] 10 mg PO DAILY #30 tablet Famotidine [Pepcid] 20 mg PO BID #10 tablet Prednisone 40 mg PO DAILY #10 tablet Primary Care Physician: Kiana Chavarria MD [Primary Care Provider] - Please follow up with your Primary Care Physician in: 1-2 weeks Please Follow Up With: Psychiatrist When: Keep previous appointment Disposition: Home Minutes spent on discharge:: 35 Patient Condition:: Stable Medical Necessity - Tobacco Use Smoking Status: Current every day smoker Tobacco Use: Cigarettes Meaningful Use Info Meaningful Use Diagnoses (Choose all that apply): None applicable <Zafar Conn F - Last Filed: 11/29/18 14:06> Discharge Date and Diagnosis - Primary Discharge Diagnosis Active and Suspected Problems (Last Updated 11/27/18 @ 14:21 by Saran Polanco DO) Angioedema (Acute) Suicidal ideation (Acute) - Secondary Discharge Diagnosis Chronic Problems (Last Updated 11/27/18 @ 14:21 by Saran Polanco DO) Diabetes (Chronic) Hypertension (Chronic) Mood disorder (Chronic) Mental deficiency (Chronic) Hospital Course and Treatment Consultations 11/29/18 09:44 Consult: Mental Health/Crisis Routine Reason for consult?: Crisis to assess the need for psych placement Date Notified:: 11/29/18 Time notified:: 09:40 Summary of Care Provided: The patient is a 53 year old F [] - Physical Exam Vital Signs Temp Pulse Resp BP Pulse Ox 98.7 F 95 18 158/88 H 94 11/29/18 10:11 11/29/18 10:11 11/29/18 10:11 11/29/18 10:11 11/29/18 10:11 Oxygen Delivery Method Room Air Weight: 162 lb 14.746 oz Body Mass Index (BMI) 27.9 Finger Stick Blood Glucose 186 Intake and Output for Last 24 Hours 11/27/18 11/28/18 11/29/18 23:59 23:59 23:59 Intake Total 2779 / 2779 1700 / 1700 Balance 2779 / 2779 1700 / 1700 Laboratory Tests Past 24 Hrs 11/29/18 05:15 Sodium 127 L Potassium 4.6 Chloride 89 L Carbon Dioxide 25.0 Anion Gap 13 BUN 15 Creatinine 0.79 Estim Creat Clear Calc 69.48 Est GFR (MDRD) Af Amer 97 Est GFR (MDRD) Non-Af 80 BUN/Creatinine Ratio 19.0 Glucose 230 H Calcium 9.2 POC Glucose 11/29/18 11/29/18 11/28/18 11:20 06:47 21:55 POC Glucose 252 H 253 H 228 H 11/28/18 16:56 POC Glucose 189 H Code Visit Addendum: Dr. Conn I personally examined the patient and reviewed the chart. I agree with the above. 53-year-old female who was discharged from a psychiatric unit on the for suicidal ideation presented to the ER for facial swelling. She is on lisinopril and Lexapro and his were both stopped. Lisinopril is likely the cause for her angioedema and the Lexapro is likely the cause for her hyponatremia therefore will discontinue both. She was evaluated by crisis today and will be transferred back to the skilled nursing. She will continue with prednisone, Pepcid, Benadryl for another couple of days as an outpatient. Follow-up with primary care physician in 3-5 days. Inpatient E&M: [id number] Disch Hosp
--- NOTE | 2018-11-29 13:14 | NURSING ---
Addendum entered by Valentina De La Rosa 11/29/18 13:19: Crisis states she [facility] transport [facility] when finishes paperwork- post tensioning ironworker spoke with Jael. Original Note: Crisis finished with pt at this time- she states that patient can go home. Calling housing case manager at this time to see if she can transport pt.
--- NOTE | 2018-11-29 13:19 | CASEMGMT ---
Pt is cleared by crisis to go home, Jessica from crisis is here and was not able to find a ride for pt, so will take pt home herself. LAURENT Esqueda, ENVELOPE PRESS OPERATOR
== END 2018-11-29 14:55 | disposition home or self-care (01) | DRG 811 ==
LOC: ED 13:44 → MS2 14:29
PROVIDERS: Physician Assistant; Emergency Provider Emergency Medicine; Family Provider Internal Medicine; PCP Internal Medicine; Visit Provider Family Medicine
DX: T78.3XXA Angioneurotic edema, initial encounter (principal); E87.1 Hypo-osmolality and hyponatremia; T46.4X5A Adverse effect of angiotensin-converting-enzyme inhibitors, initial encounter; T43.225A Adverse effect of selective serotonin reuptake inhibitors, initial encounter; F31.9 Bipolar disorder, unspecified; R44.0 Auditory hallucinations; Z23 Encounter for immunization; E11.9 Type 2 diabetes mellitus without complications; F17.210 Nicotine dependence, cigarettes, uncomplicated; I10 Essential (primary) hypertension; E78.5 Hyperlipidemia, unspecified; F79 Unspecified intellectual disabilities; Z79.84 Long term (current) use of oral hypoglycemic drugs; R45.851 Suicidal ideations
CPT/HCPCS: 36415; 80048; 80307; 80320; 82962; 84703; 85025; 94762; 99284; 99406; J7030; 90686; A4216; G0480; J3490

== ENCOUNTER 2019-02-15 14:26 | Emergency (ER) | payer MEDICAID, SELFPAY ==
[2018-11-27 15:27] VITALS: BMI 27.9
[2019-02-15 14:26] VITALS: BP 148/86; PULSE 94; RESP 16; TEMP 37.2; O2SAT 95; BMI 27.3
[2019-02-15 15:42] LABS: Absolute Lymphocyte Count 2.48 X10^3/ul (0.83-4.51); Absolute Neutrophil Count 3.5 X10^3/uL (2.0-7.7); Basophil# 0.01 X10^3/uL; Basophil% 0.1 % (0-1); Eosinophil# 0.11 X10^3/uL; Eosinophils% 1.6 % (0-5); Hematocrit 37.6 % (37-47); Hemoglobin 13.1 g/dl (12.0-15.0); Lymphocyte # 2.48 X10^3/ul (4.0); Lymphocyte % 35.8 % (19-41); Mean Corp Hgb Conc 34.8 g/gl (32-36); Mean Corpuscular Hgb 31.3 pg (27.0-32.0); Mean Corpuscular Volume 89.7 fL (81-99); Mean Platelet Vol. 10.3 fl (6.2-12.0); Monocyte# 0.83 X10^3/uL; Neutrophil # 3.47 X10^3/uL (2.7-7.7); Neutrophil % 50.2 % (47-70); POSITIVE COUNT NO; POSITIVE DIFFERENTIAL NO; POSITIVE MORPHOLOGY NO; Platelet Count 202 K/mm3 (150-450); RBC Distribution Width CV 13.6 % (11.6-14.6); RBC Distribution Width SD 44.6 fl (35.1-43.9); Red Blood Count 4.19 M/mm3 (4.2-5.4); White Blood Count 6.9 K/mm3 (4.4-11.0)
[2019-02-15 16:00] LABS: ALB/GLOB Ratio 0.8 RATIO (0.9-2.4); AST(SGOT) 7 U/L (15-37); Alanine Aminotransfer ALT/SGPT 22 U/L (13-56); Albumin, Serum 3.2 g/dL (3.2-5.0); Alkaline Phosphatase 60 U/L (45-117); Anion Gap 7 (5-15); BUN 14 mg/dL (7-18); BUN/Creat Ratio 19.5 RATIO (10-20); Calcium,Total 9.1 mg/dL (8.5-10.1); Chloride 103 mmol/L (98-107); Creatinine, Serum 0.72 mg/dL (0.55-1.02); EST Glomerular Filtration Rate 90 mL/min (>60); Est Glom Filt Rate - Afr Amer 109 mL/min (>60); Estimated Creatinine Clearance 76.24 ml/min; Globulin 3.8 g/dL (2.2-4.2); Glucose 193 mg/dL (74-106); Potassium 3.6 mmol/L (3.5-5.1); Sodium Level 139 mmol/L (136-145)
--- NOTE | 2019-02-15 16:00 | ED.DCSUM_ITS ---
- ER Visit Summary Date of Service: 02/15/19 Chief Complaint: Suicidal ideation History of Present Illness: The patient is a 53 F with suicidal ideation. This has been an ongoing issue for the patient. She plan to overdose or run in front of a train. No attempt. She has a history of suicidal ideation. Patient feels worthless but denies any other inciting factors. Physical Examination: Afebrile and vital signs unremarkable. Patient alert and oriented. Depressed mood and flat affect. Heart regular. Lungs clear. Abdomen soft. Test Results: Laboratory studies, tox, alcohol pending. Emergency Department Course and Treatment: Patient had suicide precautions. Work-up performed. Patient did not need emergency medications. Results are pending. The oncoming doctor will check the results. Patient will need evaluation by crisis for placement. Treatment Plan: As above Disposition: Pending crisis evaluation Impression: 1. Suicidal ideation This note was generated with [employer] dictation software. It may contain incorrect words, spelling, and punctuation that were not noted in review of the chart prior to signing ED Disposition - Plan for ED Patient: Referrals: Kiana Chavarria MD [Primary Care Provider] -
[2019-02-15 16:09] VITALS: PULSE 88; RESP 18; O2SAT 98
[2019-02-15 16:32] LABS: Amphetamine Urine VISTA NEGATIVE (<1000 ng/mL); Barbiturate Urine VISTA NEGATIVE (< 200 ng/mL); Benzodiazepine Urine VISTA NEGATIVE (< 200 ng/mL); Cocaine Urine VISTA NEGATIVE (< 300 ng/mL); Ecstacy Urine VISTA NEGATIVE (< 500 ng/mL); Methadone Urine VISTA NEGATIVE (< 300 ng/mL); PCP Urine VISTA NEGATIVE (< 25 ng/mL); THC Urine VISTA NEGATIVE (< 50 ng/mL); Vista UDS pH Range 7
[2019-02-15 17:31] VITALS: PULSE 87; RESP 16; O2SAT 99
[2019-02-15 18:14] VITALS: BP 155/85; PULSE 71; RESP 16; O2SAT 96
[2019-02-15 19:15] VITALS: PULSE 74; RESP 16; O2SAT 99
--- NOTE | 2019-02-15 20:14 | NURSING ---
SARINA INFORMED ME HER CHART IS IN REVIEW AT [facility]
--- NOTE | 2019-02-15 20:51 | NURSING ---
ACCEPTED TO [facility] BY DR. SCHMIDT [phone] REPORT
--- NOTE | 2019-02-15 21:17 | NURSING ---
CALLED [facility] AND WAS TOLD NO AVAILABILITY [place] CALLED [facility] AND WAS ALSO TOLD NO AVAILABILITY [place]
[2019-02-15 23:34] VITALS: BP 165/98; PULSE 64; RESP 18; O2SAT 98
[2019-02-15] MEDS: Atorvastatin Calcium 10 MG Tablet 5 MG PO (23:42)
[2019-02-15] MEDS: Divalproex (ER) 500 MG Tablet 1000 MG PO (23:42)
[2019-02-15] MEDS: Oxybutynin 5 MG Tablet PO (23:43)
[2019-02-16] VITALS (8 sets, daily range): BP systolic 135–150; BP diastolic 81–86; PULSE 65–83; RESP 16–22; O2SAT 96–100
[2019-02-16] MEDS: MELATONIN 10 MG TABLET PO (00:54)
--- NOTE | 2019-02-16 05:53 | NURSING ---
CALLED [facility] AND WAS TOLD NO AVAILABILITY TILL LATER IN THE DAY
== END 2019-02-16 07:49 ==
LOC: ED 15:10
PROVIDERS: Emergency Provider Emergency Medicine; Family Provider Internal Medicine; PCP Internal Medicine
DX: R45.851 Suicidal ideations (principal); I10 Essential (primary) hypertension; E11.9 Type 2 diabetes mellitus without complications; Z79.84 Long term (current) use of oral hypoglycemic drugs; Z79.82 Long term (current) use of aspirin; Z79.899 Other long term (current) drug therapy; Z72.0 Tobacco use
CPT/HCPCS: 80053; 80307; 80320; 85025; 99284; G0480

== ENCOUNTER 2019-05-20 19:08 | Emergency (ER) | payer MEDICAID, SELFPAY ==
[2019-05-20 19:08] VITALS: BP 153/97; PULSE 125; RESP 18; TEMP 36.6; O2SAT 95; BMI 29.0
--- NOTE | 2019-05-20 19:13 | EKG12_ITS ---
Test Reason : PHYSCH Blood Pressure : / mmHG Vent. Rate : 111 BPM Atrial Rate : 111 BPM P-R Int : 164 ms QRS Dur : 082 ms QT Int : 332 ms P-R-T Axes : 074 014 060 degrees QTc Int : 451 ms Sinus tachycardia Otherwise normal ECG Confirmed by BREN FELIZ ([id number]), map editor HENRY PIMENTEL ([id number]) on 05/27/2019 10:07:06 AM Referred By: ANMOL Confirmed By:BREN FELIZ
--- NOTE | 2019-05-20 19:15 | ED.RN ---
THIS NURSE LEFT A MESSAGE FOR THE LEGAL GUARDIAN AT THE [facility]
[2019-05-20 19:32] LABS: Absolute Neutrophil Count 4.6 X10^3/uL (2.0-7.7); Basophil# 0.05 X10^3/uL; Basophil% 0.6 % (0-1); Eosinophil# 0.15 X10^3/uL; Eosinophils% 1.7 % (0-5); Hematocrit 40.3 % (37-47); Lymphocyte % 34.4 % (19-41); Mean Corp Hgb Conc 34.7 g/dL (32-36); Mean Corpuscular Hgb 31.3 pg (27.0-32.0); Mean Corpuscular Volume 90.2 fL (81-99); Mean Platelet Vol. 11.1 fl (6.2-12.0); Monocyte# 1.08 X10^3/uL; NRBC Flagged by Analyzer 0 % (0-5); Neutrophil # 4.59 X10^3/uL (2.7-7.7); Neutrophil % 50.9 % (47-70); Platelet Count 172 K/mm3 (150-450); RBC Distribution Width CV 12.6 % (11.6-14.6); RBC Distribution Width SD 41.6 fl (35.1-43.9); Red Blood Count 4.47 M/mm3 (4.2-5.4)
[2019-05-20 19:48] LABS: ALB/GLOB Ratio 0.8 RATIO (0.9-2.4); AST(SGOT) 10 U/L (15-37); Alanine Aminotransfer ALT/SGPT 18 U/L (13-56); Albumin, Serum 3.3 g/dL (3.2-5.0); Alkaline Phosphatase 56 U/L (45-117); Anion Gap 5 (5-15); BUN 9 mg/dL (7-18); BUN/Creat Ratio 12.2 RATIO (10-20); Calcium,Total 9.2 mg/dL (8.5-10.1); Chloride 105 mmol/L (98-107); Creatinine, Serum 0.74 mg/dL (0.55-1.02); EST Glomerular Filtration Rate 87 mL/min (>60); Est Glom Filt Rate - Afr Amer 105 mL/min (>60); Estimated Creatinine Clearance 74.18 ml/min; Globulin 4.1 g/dL (2.2-4.2); Glucose 151 mg/dL (74-106); Potassium 3.6 mmol/L (3.5-5.1); Protein, Total 7.4 g/dL (6.4-8.2); Sodium Level 138 mmol/L (136-145)
[2019-05-20 19:55] LABS: Amphetamine Urine VISTA NEGATIVE (<1000 ng/mL); Barbiturate Urine VISTA NEGATIVE (< 200 ng/mL); Benzodiazepine Urine VISTA NEGATIVE (< 200 ng/mL); Cocaine Urine VISTA NEGATIVE (< 300 ng/mL); Ecstacy Urine VISTA NEGATIVE (< 500 ng/mL); Methadone Urine VISTA NEGATIVE (< 300 ng/mL); PCP Urine VISTA NEGATIVE (< 25 ng/mL); THC Urine VISTA NEGATIVE (< 50 ng/mL); Vista UDS pH Range 7
--- NOTE | 2019-05-20 19:55 | ED.DCSUM_ITS ---
History of Present Illness Chief Complaint: Suicidal Informant: Patient Onset: Days Context: Gradual Onset Timing: Continuous Current Severity: Moderate Maximum Severity: Severe Narrative: The patient presents to the emergency department with suicidal ideation. Patient has a history of schizoaffective disorder and depression. She currently is in a senior care. States over the past few weeks, she had intrusive thoughts of wanting to harm herself. States that the past week she is developed a plan where she is going to drink cleaning chemicals to kill herself. The patient does have a history of prior attempt with overdose where she required ICU admission and mechanical ventilation. She is active with crisis. She states she has been taking her medications. She denies any drug or alcohol use. She is otherwise been in her normal state of health. Prior similar symptoms: Yes Recent Illness/Hospitalization: No Past Medical History - Allergies and Home Meds Allergies/Adverse Reactions: Allergies lisinopril Allergy (Verified 05/20/19 19:08) Anaphylaxis lithium Allergy (Verified 05/20/19 19:08) Anaphylaxis risperidone [From Risperdal] Allergy (Verified 05/20/19 19:08) Anaphylaxis sertraline HCl [From Zoloft] Allergy (Verified 05/20/19 19:08) Anaphylaxis Primary Care Physician: Kiana Chavarria MD [Primary Care Provider] - Prior records reviewed: Yes Past Medical History: - Surgical History: cholecystectomy Smoking Status: Current every day smoker Alcohol: None Drugs: None - Family History Maternal Family History: Reports: Unknown Review of Systems General: Denies: Chills, Fever, Sweats Eyes: Denies: Visual changes - bilaterally, Diplopia ENT: Denies: Rhinorrhea, Sore throat Cardiovascular: Denies: Chest pain, Palpitations Respiratory: Denies: Dyspnea, Cough, Dyspnea on exertion Gastrointestinal: Denies: Abdominal pain, Nausea, Vomiting, Diarrhea, Melena, Hematochezia Genitourinary: Denies: Dysuria, Hematuria, Frequency Musculoskeletal: Denies: Back pain, Extremity Pain Skin: Denies: Rash, Wounds Neurological: Denies: Headache, Weakness, Numbness Psych: Reports: Depression, Suicidal thoughts, Suicidal ideations Physical Exam Vital Signs/Narrative: Vital Signs Temp Pulse Resp BP Pulse Ox 05/20/19 19:08 97.9 F 125 H 18 153/97 H 95 Inital Vital Signs reviewed: Yes General: Well nourished, Well developed, No Acute Distress Head: Normocephalic, Atraumatic Eyes: Perrl, EOMI ENT: Moist mucous membranes, No rhinorrhea Neck: Supple, Nontender Cardiovascular: Regular rate, Regular rhythm, No murmurs Respiratory: No distress, CTA bilaterally, Chest nontender Abdomen: Soft, Nontender, Nondistended, Normal bowel sounds Back: Nontender, Normal Inspection Extremities: Nontender, No edema Skin: Normal color, No rash Neurological: Alert, Oriented x3, Cranial nerves II-XII grossly intact, Normal Strength, Normal Sensation Psychological: Depressed Diagnostic/Tx/Re-eval Laboratory Results 05/20/19 19:20: Urine Opiates Screen NEGATIVE, Urine Methadone Screen NEGATIVE, Ur Barbiturates Screen NEGATIVE, Ur Phencyclidine Scrn NEGATIVE, Ur Amphetamines Screen NEGATIVE, U Methamphetamin-MDMA NEGATIVE, U Benzodiazepines Scrn NEGATIVE, Urine Cocaine Screen NEGATIVE, U Cannabinoids Screen NEGATIVE, Ur Drug Screen Comment 05/20/19 19:30: WBC 9.0, RBC 4.47, Hgb 14.0, Hct 40.3, MCV 90.2, MCH 31.3, MCHC 34.7, RDW Std Deviation 41.6, RDW Coeff of [place] 12.6, Plt Count 172, MPV 11.1, Immature Gran % (Auto) 0.400, Neut % (Auto) 50.9, Lymph % (Auto) 34.4, [place] % (Auto) 12.0 H, Eos % (Auto) 1.7, Baso % (Auto) 0.6, Absolute Neuts (auto) 4.6, Absolute Lymphs (auto) 3.10, Nucleated RBC % 0 05/20/19 19:30: Sodium 138, Potassium 3.6, Chloride 105, Carbon Dioxide 28.0, Anion Gap 5, BUN 9, Creatinine 0.74, Estim Creat Clear Calc 74.18, Est GFR (MDRD) Af Amer 105, Est GFR (MDRD) Non-Af 87, BUN/Creatinine Ratio 12.2, Glucose 151 H, Calcium 9.2, Total Bilirubin 0.20, AST 10 L, ALT 18, Alkaline Phosphatase 56, Total Protein 7.4, Albumin 3.3, Globulin 4.1, Albumin/Globulin Ratio 0.8 L 05/20/19 19:30: Ethyl Alcohol < 3.0 05/20/19 19:30: Serum , Qual NEGATIVE - Rhythm Strip Rhythm Strip: Sinus Rhythm Rate: 90 Ectopy: None - EKG Initial EKG Interpretation: Sinus Rhythm, No Acute Injury Pattern Prior: Unchanged - Medical Decision Making The patient presents to the emergency department with suicidal ideation with plan. Metabolic work-up was pursued. EKG was unremarkable. Labs are unremarkable. At this point, the patient is medically cleared for psychiatric admission. We are currently try to make arrangements for psychiatric placement given suicidality with plan. The patient is comfortable with this plan of care. Impression 1. Suicidal ideation with plan ED Disposition - Plan for ED Patient: Referrals: Kiana Chavarria MD [Primary Care Provider] -
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
[2019-05-20 20:04] LABS: Alcohol, Blood (Medical)-Serum < 3.0 mg/dL
[2019-05-20 20:09] VITALS: RESP 16
[2019-05-20 20:11] LABS: Internal QC Validated? YES +Cl - CLEAR BKGD; Pregnancy, Serum, hCG Quali. NEGATIVE Negative
--- NOTE | 2019-05-20 20:45 | CM.ED ---
Social Work Referral faxed to [facility]. This social security specialist was able to confirm that [facility] is in network with patient insurance. Pending approval at this time. Yesenia SLAUGHTER, ANN
[2019-05-20 21:44] VITALS: BP 158/91; PULSE 92; O2SAT 98
--- NOTE | 2019-05-20 21:44 | CM.ED ---
Social Work Telephone call from [facility], GABI. Patient has been declined due to having received treatment at [facility] in the past and patient no responding to treatment per reviewing doctor. Telephone call to [facility], intake. Referral placed. Pending approval. Yesenia SLAUGHTER, ANN
[2019-05-20 22:30] VITALS: RESP 13
--- NOTE | 2019-05-20 22:30 | CM.ED ---
Social Work Telephone call to [facility], this social and political studies professor providing with ED contact information to call back in regards to referral as it is end of social and political studies professor shift. ED staff updated. Yesenia SLAUGHTER, ANN
[2019-05-20 23:15] VITALS: RESP 16
[2019-05-21] VITALS (9 sets, daily range): BP systolic 141–159; BP diastolic 64–85; PULSE 67–75; RESP 14–16; TEMP 36.6; O2SAT 96–97
[2019-05-21] MEDS: Atorvastatin Calcium 10 MG Tablet 5 MG PO (00:48)
[2019-05-21] MEDS: traZODone 50 MG Tablet PO (00:48)
[2019-05-21] MEDS: Divalproex Sodium 250 MG Tablet 1000 MG PO (00:48)
--- NOTE | 2019-05-21 00:56 | ED.RN ---
ANDREA WHITFIELD WAITING FOR DR APPROVAL AND INSURANCE VERIFICATION
--- NOTE | 2019-05-21 03:15 | ED.RN ---
ANDREA WHITFIELD HAD MULTIPLE QUESTIONS ON PTS MENTAL STATUS AND IF SHE WAS ABLE TO PARTICIPATE IN GROUP THERAPY AND WHAT LEVEL OF MENTAL RETARDATION SHE HAD.
[2019-05-21] MEDS: Divalproex Sodium 250 MG Tablet 500 MG PO (05:43)
[2019-05-21] MEDS: Aspirin 81 MG TAB.CHEW PO (05:44)
[2019-05-21] MEDS: Oxybutynin 5 MG Tablet PO (05:44)
[2019-05-21] MEDS: amLODIPine 10 MG Tablet PO (05:45)
[2019-05-21] MEDS: metFORMIN HCl 500 MG Tablet PO (05:45)
--- NOTE | 2019-05-21 07:57 | NURSING ---
CALLED [facility]. [facility] [place] [facility] [address]IR [address]
== END 2019-05-21 08:29 ==
PROVIDERS: Emergency Provider Emergency Medicine; Family Provider Internal Medicine; PCP Internal Medicine
DX: R45.851 Suicidal ideations (principal); F25.9 Schizoaffective disorder, unspecified; F32.9 Major depressive disorder, single episode, unspecified; F17.200 Nicotine dependence, unspecified, uncomplicated; Z91.5 Personal history of self-harm; Z79.899 Other long term (current) drug therapy
CPT/HCPCS: 36415; 80053; 80307; 80320; 84703; 85025; 93005; 99285; G0480

== ENCOUNTER 2019-05-29 18:25 | Emergency (ER) | payer MEDICAID, SELFPAY ==
[2019-05-29 18:27] VITALS: BP 147/86; PULSE 100; RESP 20; TEMP 37.1; O2SAT 97; BMI 29.2
--- NOTE | 2019-05-29 18:32 | EKG12_ITS ---
Test Reason : Blood Pressure : / mmHG Vent. Rate : 099 BPM Atrial Rate : 099 BPM P-R Int : 176 ms QRS Dur : 088 ms QT Int : 374 ms P-R-T Axes : 072 -16 060 degrees QTc Int : 479 ms Normal sinus rhythm Normal ECG Confirmed by BREN FELIZ ([id number]), news assignment editor HENRY PIMENTEL ([id number]) on 06/02/2019 2:36:27 PM Referred By: ANMOL Confirmed By:BREN FELIZ
--- NOTE | 2019-05-29 18:48 | RAD_ITS ---
STUDY: X-RAY CHEST REASON FOR EXAM: Female, 53 years old. Chest pain and shortness of breath TECHNIQUE: Single AP portable view of the chest. COMPARISON: November 02, 2015 FINDINGS: Surgical clips in the right axilla, stable The lungs are clear and expanded. There is no demonstrated pleural abnormality. Normal size heart. Normal mediastinum and odalis. Normal visualized pulmonary arteries. Normal visualized aortic arch and descending thoracic aorta. Normal visualized thoracic spine. Normal visualized ribs, clavicles, and shoulders. There is no demonstrated abnormality of the visualized soft tissue structures of the upper abdomen. RAD/Chest 1 View (Portable) IMPRESSION: Normal x-ray examination of the chest. Electronically Signed: Manuel Orlando DO at 19:14 EDT Tel , Service support ,
--- NOTE | 2019-05-29 18:57 | ED.VIS.GEN ---
History of Present Illness Chief Complaint: Suicidal Informant: Patient Onset: Days Context: Gradual Onset Timing: Continuous Current Severity: Moderate Maximum Severity: Moderate Narrative: The patient presents to the emergency department with cough and suicidal thoughts. Patient was recently admitted for suicidal thoughts of plan. States she was doing better, but over the past 2 days her depression is worsened. She does have history of prior overdose and multiple prior attempts. She states she is also had a scant cough with some productive sputum. She denies any fevers or chills. She has no history of underlying lung disease. She states she is otherwise been in her normal state of health. She is been compliant with her medications. Prior similar symptoms: Yes Recent Illness/Hospitalization: Yes Past Medical History - Allergies and Home Meds Allergies/Adverse Reactions: Allergies lisinopril Allergy (Verified 05/29/19 18:32) Anaphylaxis lithium Allergy (Verified 05/29/19 18:32) Anaphylaxis risperidone [From Risperdal] Allergy (Verified 05/29/19 18:32) Anaphylaxis sertraline HCl [From Zoloft] Allergy (Verified 05/29/19 18:32) Anaphylaxis Primary Care Physician: Kiana Chavarria MD [Primary Care Provider] - Prior records reviewed: Yes Past Medical History: - - Schizoaffective disorder Surgical History: cholecystectomy Smoking Status: Current every day smoker - Family History Maternal Family History: Reports: Unknown Review of Systems General: Denies: Chills, Fever, Sweats Eyes: Denies: Visual changes - bilaterally, Diplopia ENT: Denies: Rhinorrhea, Sore throat Cardiovascular: Denies: Chest pain, Palpitations Respiratory: Reports: Cough. Denies: Dyspnea, Dyspnea on exertion Gastrointestinal: Denies: Abdominal pain, Nausea, Vomiting, Diarrhea, Melena, Hematochezia Genitourinary: Denies: Dysuria, Hematuria, Frequency Musculoskeletal: Denies: Back pain, Extremity Pain Skin: Denies: Rash, Wounds Neurological: Denies: Headache, Weakness, Numbness Psych: Reports: Depression, Suicidal thoughts Endocrine: Denies: Polyuria Hematologic: Denies: Easy bruising Physical Exam Vital Signs/Narrative: Vital Signs Temp Pulse Resp BP Pulse Ox 05/29/19 18:27 98.7 F 100 20 H 147/86 H 97 Inital Vital Signs reviewed: Yes General: Well nourished, Well developed, No Acute Distress Head: Normocephalic, Atraumatic Eyes: Perrl, EOMI ENT: Moist mucous membranes, No rhinorrhea Neck: Supple, Nontender Cardiovascular: Regular rate, Regular rhythm, No murmurs Respiratory: No distress, CTA bilaterally, Chest nontender Abdomen: Soft, Nontender, Nondistended, Normal bowel sounds Back: Nontender, Normal Inspection Extremities: Nontender, No edema Skin: Normal color, No rash Neurological: Alert, Oriented x3, Cranial nerves II-XII grossly intact, Normal Strength, Normal Sensation Psychological: Depressed, - - Voices suicidal ideation with plan to overdose. Diagnostic/Tx/Re-eval Chest X-Ray - ED: 1 View, Normal, Heart, Lungs, Mediastinum, No Infiltrates Abnormal Lab Results 05/29/19 05/29/19 05/29/19 19:25 19:25 19:25 WBC 8.6 RBC 4.54 Hgb 14.2 Hct 41.4 MCV 91.2 MCH 31.3 MCHC 34.3 RDW Std Deviation 43.7 RDW Coeff of [place] 13.1 Plt Count 206 MPV 10.5 Immature Gran % (Auto) 0.200 Neut % (Auto) 60.4 Lymph % (Auto) 25.3 [place] % (Auto) 12.4 H Eos % (Auto) 1.4 Baso % (Auto) 0.3 Absolute Neuts (auto) 5.2 Absolute Lymphs (auto) 2.18 Nucleated RBC % 0 Sodium 139 Potassium 3.3 L Chloride 104 Carbon Dioxide 28.0 Anion Gap 7 BUN 15 Creatinine 0.79 Estim Creat Clear Calc 69.48 Est GFR (MDRD) Af Amer 97 Est GFR (MDRD) Non-Af 80 BUN/Creatinine Ratio 18.9 Glucose 172 H Calcium 8.9 Troponin I < 0.015 Serum , Qual Urine Opiates Screen Urine Methadone Screen Ur Barbiturates Screen Ur Phencyclidine Scrn Ur Amphetamines Screen U Methamphetamin-MDMA U Benzodiazepines Scrn Urine Cocaine Screen U Cannabinoids Screen Ur Drug Screen Comment Ethyl Alcohol 8.0 05/29/19 05/29/19 19:25 20:05 WBC RBC Hgb Hct MCV MCH MCHC RDW Std Deviation RDW Coeff of [place] Plt Count MPV Immature Gran % (Auto) Neut % (Auto) Lymph % (Auto) Sussex % (Auto) Eos % (Auto) Baso % (Auto) Absolute Neuts (auto) Absolute Lymphs (auto) Nucleated RBC % Sodium Potassium Chloride Carbon Dioxide Anion Gap BUN Creatinine Estim Creat Clear Calc Est GFR (MDRD) Af Amer Est GFR (MDRD) Non-Af BUN/Creatinine Ratio Glucose Calcium Troponin I Serum , Qual NEGATIVE Urine Opiates Screen NEGATIVE Urine Methadone Screen NEGATIVE Ur Barbiturates Screen NEGATIVE Ur Phencyclidine Scrn NEGATIVE Ur Amphetamines Screen NEGATIVE U Methamphetamin-MDMA NEGATIVE U Benzodiazepines Scrn NEGATIVE Urine Cocaine Screen NEGATIVE U Cannabinoids Screen NEGATIVE Ur Drug Screen Comment Ethyl Alcohol - Rhythm Strip Rhythm Strip: Sinus Rhythm Rate: 80 Ectopy: None - EKG Initial EKG Interpretation: Sinus Rhythm, No Acute Injury Pattern Prior: Unchanged - Medical Decision Making The patient presents with cough and suicidal thoughts with plan to overdose. The cough does seem viral. EKG was obtained which was unremarkable. Cardiac enzymes are normal. X-ray shows no focal infiltrate, pneumothorax, or other dangerous process. Screening labs obtained were unremarkable. At this point, the patient is medically cleared. I do feel that she is going to require psychiatric evaluation given her persistent suicidality and prior history of attempt. Impression 1. Suicidal ideation with plan ED Disposition - Plan for ED Patient: Referrals: Kiana Chavarria MD [Primary Care Provider] -
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
[2019-05-29 19:37] LABS: Absolute Lymphocyte Count 2.18 X10^3/uL (0.83-4.51); Absolute Neutrophil Count 5.2 X10^3/uL (2.0-7.7); Basophil# 0.03 X10^3/uL; Basophil% 0.3 % (0-1); Eosinophil# 0.12 X10^3/uL; Eosinophils% 1.4 % (0-5); Hematocrit 41.4 % (37-47); Hemoglobin 14.2 g/dL (12.0-15.0); Lymphocyte # 2.18 X10^3/ul (4.0); Lymphocyte % 25.3 % (19-41); Mean Corp Hgb Conc 34.3 g/dL (32-36); Mean Corpuscular Hgb 31.3 pg (27.0-32.0); Mean Corpuscular Volume 91.2 fL (81-99); Mean Platelet Vol. 10.5 fl (6.2-12.0); Monocyte# 1.07 X10^3/uL; Monocyte% 12.4 % (0-10); NRBC Flagged by Analyzer 0 % (0-5); Neutrophil % 60.4 % (47-70); Platelet Count 206 K/mm3 (150-450); RBC Distribution Width CV 13.1 % (11.6-14.6); RBC Distribution Width SD 43.7 fl (35.1-43.9); Red Blood Count 4.54 M/mm3 (4.2-5.4); White Blood Count 8.6 K/mm3 (4.4-11.0)
--- NOTE | 2019-05-29 19:49 | CM.ED ---
Social Work Telephone call to [facility], obtained consent to treat and updated Philly on patient current status. Philly stating that patient must have discharged from inpatient psychiatric facility on Sunday (05/25/19). Philly stating to have gotten no information about patient inpatient stay. Philly is patient's legal guardian. Philly stating that last injection for patient was on 05/27/[address] Mcnally at [facility]. Contact number fo Philly: [phone]. This protective services social worker providing registration with updated contact information. Yesenia SLAUGHTER, ANN
[2019-05-29 19:52] LABS: Internal QC Validated? YES +Cl - CLEAR BKGD; Pregnancy, Serum, hCG Quali. NEGATIVE Negative
[2019-05-29 19:54] LABS: Anion Gap 7 (5-15); BUN 15 mg/dL (7-18); BUN/Creat Ratio 18.9 RATIO (10-20); Calcium,Total 8.9 mg/dL (8.5-10.1); Chloride 104 mmol/L (98-107); Creatinine, Serum 0.79 mg/dL (0.55-1.02); EST Glomerular Filtration Rate 80 mL/min (>60); Est Glom Filt Rate - Afr Amer 97 mL/min (>60); Estimated Creatinine Clearance 69.48 ml/min; Glucose 172 mg/dL (74-106); Potassium 3.3 mmol/L (3.5-5.1); Sodium Level 139 mmol/L (136-145)
[2019-05-29 20:28] LABS: Amphetamine Urine VISTA NEGATIVE (<1000 ng/mL); Barbiturate Urine VISTA NEGATIVE (< 200 ng/mL); Benzodiazepine Urine VISTA NEGATIVE (< 200 ng/mL); Cocaine Urine VISTA NEGATIVE (< 300 ng/mL); Ecstacy Urine VISTA NEGATIVE (< 500 ng/mL); Methadone Urine VISTA NEGATIVE (< 300 ng/mL); PCP Urine VISTA NEGATIVE (< 25 ng/mL); THC Urine VISTA NEGATIVE (< 50 ng/mL); Vista UDS pH Range 6
--- NOTE | 2019-05-29 20:33 | CM.ED ---
Social Work Referral faxed to [facility]. Was able to confirm that [facility] is in network with patient insurance. Pending approval. Yesenia Short MSW, ANN
[2019-05-29 21:39] LABS: Bacteria 0 SEEN /hpf (None Seen); Mucous, Urine 0 SEEN /hpf (<or=2+); Red Blood Cells-Urine 0 SEEN /hpf (0-5)
[2019-05-29 21:40] LABS: Color, Urine Yellow (Yellow); Glucose, Dipstick 50 mg/dl (Normal); Ketone-Dipstick 5 mg/dl (Negative); Leukocyte Esterase-Dipstick 500 /ul (Negative); Nitrite-Dipstick Negative (Negative); Occult Blood-Urine 10 /ul (Negative); Protein-Dipstick 30 mg/dl (Negative); Urine Bilirubin Dipstick Negative (Negative); Urine Clarity Clear (Clear); Urine Urobilinogen Normal (Normal)
[2019-05-29 21:49] LABS: Squamous Epithelial Cells - UA 0-5 SEEN /hpf (5-10); White Blood Cells 5-10 SEEN /hpf (0-5)
[2019-05-29 21:51] VITALS: BP 155/109; PULSE 76; O2SAT 97
--- NOTE | 2019-05-29 21:52 | CM.ED ---
Social Work Telephone call to check on referral, continues to be under review. Pending approval. Yesenia SLAUGHTER, ANN
--- NOTE | 2019-05-29 22:41 | CM.ED ---
Social Work Telephone call from [facility], patient has been accepted. Accepting physician is Dr. Donaldo Mathis. Nurse to nurse report: [phone]. Patient admitting to 302 bed #2. Notified nursing, Dr. Gusman, and patient. All agreeable to plan. Vidalia Slip faxed. Telephone call to Brina patient guardian. Voicemail left with above information along with contact information for [facility]. PLAN: Discharge to [facility]. Yesenia SLAUGHTER, ANN
[2019-05-29 23:02] VITALS: RESP 16
--- NOTE | 2019-05-29 23:03 | ED.RN ---
Assumed care for pt. Pending transport to [facility] facility in am.
--- NOTE | 2019-05-29 23:04 | ED.RN ---
ATTEMPTED TO SECURE TRANSPORT, CALLED [facility] [employer], NO ONE IS ABLE TO ACCEPT THIS RUN AT THIS TIME, AND NO ONE WILL ATTEMPT TO SCHEDULE AT THIS TIME
[2019-05-29] MEDS: Divalproex Sodium 250 MG Tablet 1000 MG PO (23:08)
[2019-05-29] MEDS: traZODone 50 MG Tablet PO (23:08)
[2019-05-30] VITALS (8 sets, daily range): BP systolic 140–149; BP diastolic 80–89; PULSE 76–82; RESP 16–22; O2SAT 96–99
[2019-05-30] MEDS: Oxybutynin 5 MG Tablet PO (07:30)
[2019-05-30] MEDS: Docusate Sodium 100 MG Capsule PO (07:30)
[2019-05-30] MEDS: metFORMIN HCl 500 MG Tablet PO (07:30)
[2019-05-30] MEDS: amLODIPine 10 MG Tablet PO (07:30)
[2019-05-30] MEDS: Divalproex Sodium 250 MG Tablet 500 MG PO (07:31)
[2019-05-30] MEDS: Aspirin 81 MG TAB.CHEW PO (07:33)
== END 2019-05-30 08:17 ==
PROVIDERS: Emergency Provider Emergency Medicine; Family Provider Internal Medicine; PCP Internal Medicine
DX: F32.9 Major depressive disorder, single episode, unspecified (principal); R45.851 Suicidal ideations; R05 Cough; F17.200 Nicotine dependence, unspecified, uncomplicated; Z79.899 Other long term (current) drug therapy
CPT/HCPCS: 36415; 71045; 80048; 80307; 80320; 81001; 84484; 84703; 85025; 93005; 99285; J7030; G0480

== ENCOUNTER 2019-07-26 16:14 | Emergency (ER) | payer MEDICAID, SELFPAY ==
[2019-07-26 16:15] VITALS: BP 147/90; PULSE 106; RESP 17; TEMP 36.9; O2SAT 96; BMI 28.2
--- NOTE | 2019-07-26 17:13 | ED.VIS.PSYCH ---
History of Present Illness Informant: Patient Onset: Yesterday Context: Sudden Onset Conflict: Family, Financial Timing: Continuous Current Severity: Severe Maximum Severity: Severe Worsened by: Situational factors Relieved by: Nothing Associated Symptoms: Depressed, Change in sleeping, Decreased Interest, Suicidal Thoughts, Angry Specific plan (suicidal thought): Patient states that she is going to light herself on fire Narrative: 53-year-old female with a history of intellectual delay presents with suicidal ideation. Patient states that her senior care currently. She voiced thoughts of wanting to light herself on fire. She is not in a locked unit and its more of an independent living environment she is not taking her medications frequently leaves to visit her friend at another facility. She was admitted to [facility] 2 months ago. She has not attempted suicide at this time but she has in the past. She denies any hallucinations, there is been no confusion she is not paranoid no threatening behaviors towards staff. Medications that she is Prior similar symptoms: Yes Recent Illness/Hospitalization: Yes <Wei Morales - Last Filed: 07/26/19 17:51> <Carmen Moffett - Last Filed: 07/26/19 18:29> Chief Complaint: Suicidal Past Medical History Prior records reviewed: Yes Past Medical History: - - Intellectual delay Surgical History: cholecystectomy Smoking Status: Current every day smoker - Family History Maternal Family History: Reports: Unknown <Wei Morales - Last Filed: 07/26/19 17:51> <Carmen Moffett - Last Filed: 07/26/19 18:29> - Allergies and Home Meds Allergies/Adverse Reactions: Allergies lisinopril Allergy (Verified 07/26/19 16:14) Anaphylaxis lithium Allergy (Verified 07/26/19 16:14) Anaphylaxis risperidone [From Risperdal] Allergy (Verified 07/26/19 16:14) Anaphylaxis sertraline HCl [From Zoloft] Allergy (Verified 07/26/19 16:14) Anaphylaxis Primary Care Physician: Kiana Chavarria MD [Primary Care Provider] - Review of Systems All systems negative except as indicated General: Denies: Chills, Fever Cardiovascular: Denies: Chest pain Respiratory: Denies: Dyspnea Gastrointestinal: Denies: Abdominal pain, Nausea, Vomiting Neurological: Denies: Headache Psych: Reports: Depression, Suicidal thoughts, Suicidal ideations. Denies: Anxiety <AndrewWei - Last Filed: 07/26/19 17:51> Physical Exam Vital Signs/Narrative: Vital Signs Temp Pulse Resp BP Pulse Ox 07/26/19 16:15 98.5 F 106 H 17 147/90 H 96 Inital Vital Signs reviewed: Yes General: Well nourished, Well developed, Unkempt Head: Normocephalic, Atraumatic Eyes: Perrl, EOMI ENT: Moist mucous membranes Neck: Supple, Nontender Cardiovascular: Regular rate, Regular rhythm Respiratory: No distress, CTA bilaterally, Chest nontender Abdomen: Soft, Nontender, Nondistended, Normal bowel sounds, No masses Back: Nontender, Normal Inspection Extremities: Nontender, No Edema Skin: Normal color, No rash Neurological: Alert, Oriented x3 Psych: Normal Speech Pattern, Logical sequential goal directed thoughts, Normal Appearance, Depressed, Flat Affect, Suicidal thoughts, Limited Insight, Poor Judgement. Negative for: Flight of Ideas, Incoherent thoughts, Hallucinations <AndrewWei - Last Filed: 07/26/19 17:51> Vital Signs/Narrative: Vital Signs Temp Pulse Resp BP Pulse Ox 07/26/19 16:15 98.5 F 106 H 17 147/90 H 96 <Carmen Moffett - Last Filed: 07/26/19 18:29> Diagnostic/Tx/Re-eval Restraints applied: No Patient is suicidal. She is stating that she will let herself on fire. We get further relation from the patient's caregiver. Apparently the patient lives in independent living type environment but has been leaving frequently and has not been taking any of her medications. Because of this and the fact that she is suicidal she will require admission. Laboratory work-up is pending. We will pink slip the patient. <FernandotacoWei - Last Filed: 07/26/19 17:51> Seen and examined with physician's mental health assistant. Patient reports being suicidal with plan to set herself on fire. Patient resting in bed no acute distress. She opens eyes to voice and answers questions. Heart is regular rate and rhythm. Lung sounds are clear. Abdomen is soft with no focal tenderness. Psychiatric evaluation reveals suicidal thoughts with plan. Mental health work-up was undertaken. Potassium is slightly low at 3.1, otherwise unremarkable. This is replaced with 40 mEq of potassium p.o. Patient was seen by social work. She has been accepted by [facility]. Disposition: Transfer Impression: 1. Suicidal ideation 2. Schizophrenia 3. Bipolar disorder <Carmen Moffett - Last Filed: 07/26/19 18:29> Disposition: Transfer Transferred to: Psychiatric Hospital <Carmen Moffett - Last Filed: 07/26/19 18:29> ED Disposition <Wei Morales - Last Filed: 07/26/19 17:51> <Carmen Moffett - Last Filed: 07/26/19 18:29> - Plan for ED Patient: Disposition: Psychiatric Hospital or Unit Diagnosis: Suicidal ideation, Mental deficiency Referrals: Kiana Chavarria MD [Primary Care Provider] -
[2019-07-26 17:22] LABS: Absolute Lymphocyte Count 2.17 X10^3/uL (0.83-4.51); Absolute Neutrophil Count 4.2 X10^3/uL (2.0-7.7); Basophil# 0.03 X10^3/uL; Basophil% 0.4 % (0-1); Eosinophils% 1.4 % (0-5); Hematocrit 39.5 % (37-47); Hemoglobin 13.7 g/dL (12.0-15.0); Lymphocyte # 2.17 X10^3/ul (4.0); Lymphocyte % 30.6 % (19-41); Mean Corp Hgb Conc 34.7 g/dL (32-36); Mean Corpuscular Hgb 31.5 pg (27.0-32.0); Mean Corpuscular Volume 90.8 fL (81-99); Mean Platelet Vol. 10.2 fl (6.2-12.0); Monocyte# 0.64 X10^3/uL; NRBC Flagged by Analyzer 0 % (0-5); Neutrophil # 4.15 X10^3/uL (2.7-7.7); Neutrophil % 58.5 % (47-70); Platelet Count 237 K/mm3 (150-450); RBC Distribution Width CV 13.2 % (11.6-14.6); RBC Distribution Width SD 44.3 fl (35.1-43.9); Red Blood Count 4.35 M/mm3 (4.2-5.4); White Blood Count 7.1 K/mm3 (4.4-11.0)
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
[2019-07-26 17:38] LABS: Anion Gap 6 (5-15); BUN 6 mg/dL (7-18); BUN/Creat Ratio 10.7 RATIO (10-20); Chloride 102 mmol/L (98-107); Creatinine, Serum 0.56 mg/dL (0.55-1.02); EST Glomerular Filtration Rate 119 mL/min (>60); Est Glom Filt Rate - Afr Amer 143 mL/min (>60); Estimated Creatinine Clearance 98.02 ml/min; Glucose 119 mg/dL (74-106); Potassium 3.1 mmol/L (3.5-5.1); Sodium Level 136 mmol/L (136-145)
[2019-07-26 17:45] LABS: Amphetamine Urine VISTA NEGATIVE (<1000 ng/mL); Barbiturate Urine VISTA NEGATIVE (< 200 ng/mL); Benzodiazepine Urine VISTA NEGATIVE (< 200 ng/mL); Cocaine Urine VISTA NEGATIVE (< 300 ng/mL); Ecstacy Urine VISTA NEGATIVE (< 500 ng/mL); Methadone Urine VISTA NEGATIVE (< 300 ng/mL); PCP Urine VISTA NEGATIVE (< 25 ng/mL); THC Urine VISTA NEGATIVE (< 50 ng/mL); Vista UDS pH Range 6
[2019-07-26 17:46] LABS: Alcohol, Blood (Medical)-Serum < 3.0 mg/dL
--- NOTE | 2019-07-26 18:02 | CM.ED ---
SOCIAL WORK REFERRAL CALLED AND FAXED TO [facility]. Yesenia MEDLEY, HEATING AND COOLING SYSTEMS ENGINEER, LIFT DRIVER.
[2019-07-26 18:34] VITALS: BP 138/67; PULSE 78; RESP 18; O2SAT 99
--- NOTE | 2019-07-26 18:41 | CM.ED ---
SOCIAL WORK RECEIVED CALL FROM KIM WITH [facility]. PATIENT ACCEPTED BY DR. GREENE. REPORT TO BE CALLED TO . COPY OF PINK SLIP FAXED PER REQUEST ALONG WITH UPDATED REPORT WITH DIAGNOSIS. UPDATED STAFF AND PATIENT. CALL TO PATIENT'S GUARDIAN, HERNANDEZ TO UPDATE ON PATIENT'S ACCEPTANCE TO [facility]. INVESTIGATIONS DIRECTOR TO SET UP TRANSPORT [facility] DOES NOT HAVE TRANSPORT ON THE WEEKEND. Yesenia MEDLEY, MACHINE SIZER, AT RISK PARAPROFESSIONAL.
[2019-07-26 19:30] VITALS: RESP 16
== END 2019-07-26 20:41 ==
PROVIDERS: Emergency Provider Physician Assistant Medical; Family Provider Internal Medicine; PCP Internal Medicine
DX: R45.851 Suicidal ideations (principal); F20.9 Schizophrenia, unspecified; F31.9 Bipolar disorder, unspecified; F79 Unspecified intellectual disabilities; F17.200 Nicotine dependence, unspecified, uncomplicated; Z91.5 Personal history of self-harm
CPT/HCPCS: 80048; 80307; 80320; 85025; 99285; G0480

== ENCOUNTER 2019-09-03 20:48 | Emergency (ER) | payer MEDICAID, SELFPAY ==
[2019-09-03 20:49] VITALS: BP 171/108; PULSE 86; RESP 15; TEMP 36.6; O2SAT 97; BMI 31.4
--- NOTE | 2019-09-03 21:01 | EKG12_ITS ---
Test Reason : COLD SX Blood Pressure : / mmHG Vent. Rate : 094 BPM Atrial Rate : 094 BPM P-R Int : 176 ms QRS Dur : 094 ms QT Int : 376 ms P-R-T Axes : 067 -23 049 degrees QTc Int : 470 ms Normal sinus rhythm Normal ECG Confirmed by ANDERSON CHRISTENSEN, ENRIQUETA ([id number]), book or script editor TESSA CRUZ ([id number]) on 09/10/2019 11:34:54 AM Referred By: LU Confirmed By:MARIBEL BARRON MD
--- NOTE | 2019-09-03 21:02 | ED.DCSUM_ITS ---
History of Present Illness Chief Complaint: Cold Sx Detail of Chief Complaint: Cough, chest pain, vomiting Informant: Patient Onset: Days - 2 days Current Severity: Mild Maximum Severity: Moderate Narrative: Patient presents with cough and congestion that started 2 days ago. She is also had nausea, vomiting, and diarrhea. She thinks she may have had a fever at home. She states her chest pain is constant, not really worsened by the cough. She is bringing up white sputum. She denies wheezing. - Past Medical History (1) Schizophrenia Status: Chronic (2) Diabetes Status: Chronic (3) Hypertension Status: Chronic Past Medical History - Allergies and Home Meds Allergies/Adverse Reactions: Allergies lisinopril Allergy (Verified 09/03/19 20:51) Anaphylaxis lithium Allergy (Verified 09/03/19 20:51) Anaphylaxis risperidone [From Risperdal] Allergy (Verified 09/03/19 20:51) Anaphylaxis sertraline HCl [From Zoloft] Allergy (Verified 09/03/19 20:51) Anaphylaxis Primary Care Physician: Kiana Chavarria MD [Primary Care Provider] - Prior records reviewed: Yes Surgical History: cholecystectomy Smoking Status: Former smoker - Family History Maternal Family History: Reports: Unknown Review of Systems General: Reports: Fever, Subjective Eyes: Denies: Visual changes - bilaterally ENT: Reports: Left ear pain Cardiovascular: Reports: Chest pain. Denies: Palpitations, Heart racing Respiratory: Reports: Cough, Sputum. Denies: Dyspnea Gastrointestinal: Reports: Nausea, Vomiting, Diarrhea. Denies: Abdominal pain Genitourinary: Denies: Dysuria Musculoskeletal: Denies: Neck pain, Back pain Skin: Denies: Rash Neurological: Denies: Headache Hematologic: Denies: Easy bruising Allergy: Denies: Uticaria Physical Exam Vital Signs/Narrative: Vital Signs Temp Pulse Resp BP Pulse Ox 09/03/19 20:49 98 F 86 15 171/108 H 97 Inital Vital Signs reviewed: Yes General: Well nourished, Well developed Head: Normocephalic ENT: Moist mucous membranes Neck: Supple Cardiovascular: Regular rate, Regular rhythm Respiratory: No distress, CTA bilaterally, Chest tenderness - Mild anterior chest wall tenderness Abdomen: Soft, Nontender, Hypoactive bowel sounds Extremities: Nontender Skin: Normal color Neurological: Alert, Oriented x3 Psychological: Normal affect Diagnostic/Tx/Re-eval Impressions Chest X-Ray 12/11/19 21:25 IMPRESSION: No acute cardiopulmonary findings or changes. Negative for new consolidation, focal atelectasis or pleural effusion. Electronically Signed: Federica Manning MD at 21:43 EST , Service support , 09/03/19 21:25 Chest PA and Lateral [RAD] Stat Laboratory Results 09/03/19 09/03/19 21:15 21:15 WBC 8.6 RBC 4.44 Hgb 13.9 Hct 39.4 MCV 88.7 MCH 31.3 MCHC 35.3 RDW Std Deviation 40.4 RDW Coeff of [place] 12.4 Plt Count 256 MPV 9.7 Immature Gran % (Auto) 0.500 Neut % (Auto) 56.2 Lymph % (Auto) 32.7 [place] % (Auto) 8.7 Eos % (Auto) 1.7 Baso % (Auto) 0.2 Absolute Neuts (auto) 4.8 Absolute Lymphs (auto) 2.81 Nucleated RBC % 0 Sodium 138 Potassium 3.1 L Chloride 104 Carbon Dioxide 27.0 Anion Gap 7 BUN 13 Creatinine 0.71 Estim Creat Clear Calc 76.40 Est GFR (MDRD) Af Amer 109 Est GFR (MDRD) Non-Af 90 BUN/Creatinine Ratio 18.2 Glucose 126 H Calcium 9.1 Troponin I < 0.015 - EKG Initial EKG Interpretation: Sinus Rhythm - Sinus at 94 with no acute ischemia. - Medical Decision Making Patient was given IV fluids and Zofran. She is had no further vomiting here. Cardiac work-up is unremarkable. Patient was advised to have her blood pressure rechecked as it was elevated tonight. She denies taking any [id number] cold medication that would cause it to increase. She will be given a single dose of potassium here for mild hypokalemia. She will be given a prescription for Tessalon Perles and Zofran. I discussed with her that I believe her symptoms are all viral in nature and will need to run their course. She voices understanding and agreement. ED Disposition - Plan for ED Patient: Disposition: Home or Assisted Living Diagnosis: Viral URI, Gastroenteritis Instructions: URI, Viral, No Abx (Adult), GASTROENTERITIS, Viral (4y-Adult) Prescriptions: Benzonatate [Tessalon Perle] 200 mg PO TID PRN PRN #20 cap PRN Reason: Cough Transmission Status: Pending to [place] [id number] Ondansetron [Zofran Odt] 4 mg PO Q8H PRN PRN #10 tab PRN Reason: Nausea Transmission Status: Pending to [place] [id number] Referrals: Kiana Chavarria MD [Primary Care Provider] - 1 Week
--- NOTE | 2019-09-03 21:11 | ED.RN ---
Left message with legal guardian for permission to treat at this time
[2019-09-03] MEDS: 0.9% Normal Saline 1,000 ML 150 ML IV (21:23)
[2019-09-03] MEDS: Ketorolac 15 MG/ML Vial IV (21:24)
[2019-09-03] MEDS: Ondansetron 4 MG/2 ML Vial IV (21:24)
[2019-09-03 21:25] VITALS: PULSE 90; RESP 18; O2SAT 96
--- NOTE | 2019-09-03 21:25 | RAD_ITS ---
STUDY: X-RAY CHEST REASON FOR EXAM: Female, 54 years old. Cough. TECHNIQUE: 2 views COMPARISON: Prior chest radiograph of May 29, 2019 FINDINGS: Limited inspiration without major consolidation or focal atelectasis. There is no demonstrated pleural abnormality. Normal size heart. Normal mediastinum and odalis. Normal visualized pulmonary arteries. Normal visualized aortic arch and descending thoracic aorta. There are diffuse degenerative changes of the visualized thoracic spine. Normal visualized ribs, clavicles, and shoulders. There is no demonstrated abnormality of the visualized soft tissue structures of the upper abdomen. RAD/Chest PA and Lateral IMPRESSION: No acute cardiopulmonary findings or changes. Negative for new consolidation, focal atelectasis or pleural effusion. Electronically Signed: Federica Manning MD at 21:43 EST , Service support ,
[2019-09-03 21:33] LABS: Absolute Lymphocyte Count 2.81 X10^3/uL (0.83-4.51); Absolute Neutrophil Count 4.8 X10^3/uL (2.0-7.7); Basophil# 0.02 X10^3/uL; Basophil% 0.2 % (0-1); Eosinophil# 0.15 X10^3/uL; Eosinophils% 1.7 % (0-5); Hematocrit 39.4 % (37-47); Hemoglobin 13.9 g/dL (12.0-15.0); Lymphocyte # 2.81 X10^3/ul (4.0); Lymphocyte % 32.7 % (19-41); Mean Corp Hgb Conc 35.3 g/dL (32-36); Mean Corpuscular Hgb 31.3 pg (27.0-32.0); Mean Corpuscular Volume 88.7 fL (81-99); Mean Platelet Vol. 9.7 fl (6.2-12.0); Monocyte# 0.75 X10^3/uL; Monocyte% 8.7 % (0-10); NRBC Flagged by Analyzer 0 % (0-5); Neutrophil # 4.83 X10^3/uL (2.7-7.7); Neutrophil % 56.2 % (47-70); Platelet Count 256 K/mm3 (150-450); RBC Distribution Width CV 12.4 % (11.6-14.6); RBC Distribution Width SD 40.4 fl (35.1-43.9); Red Blood Count 4.44 M/mm3 (4.2-5.4); White Blood Count 8.6 K/mm3 (4.4-11.0)
--- NOTE | 2019-09-03 21:39 | ED.RN ---
legal guardian called back and verbal permission given. Update on patient care at this time
[2019-09-03 21:52] LABS: Anion Gap 7 (5-15); BUN 13 mg/dL (7-18); BUN/Creat Ratio 18.2 RATIO (10-20); Calcium,Total 9.1 mg/dL (8.5-10.1); Chloride 104 mmol/L (98-107); Creatinine, Serum 0.71 mg/dL (0.55-1.02); EST Glomerular Filtration Rate 90 mL/min (>60); Est Glom Filt Rate - Afr Amer 109 mL/min (>60); Glucose 126 mg/dL (74-106); Potassium 3.1 mmol/L (3.5-5.1); Sodium Level 138 mmol/L (136-145)
[2019-09-03 22:10] VITALS: BP 168/80; PULSE 88; RESP 18; O2SAT 96
== END 2019-09-03 22:11 | disposition home or self-care (01) ==
PROVIDERS: Emergency Provider Emergency Medicine; Family Provider Internal Medicine; PCP Internal Medicine
DX: J06.9 Acute upper respiratory infection, unspecified (principal); K52.9 Noninfective gastroenteritis and colitis, unspecified; I10 Essential (primary) hypertension; E11.9 Type 2 diabetes mellitus without complications; F20.9 Schizophrenia, unspecified; Z79.84 Long term (current) use of oral hypoglycemic drugs; Z79.899 Other long term (current) drug therapy; Z87.891 Personal history of nicotine dependence
CPT/HCPCS: 71046; 80048; 84484; 85025; 93005; 96361; 96374; 96375; 99285; J7030; A4216; J2405

== ENCOUNTER 2019-10-30 18:34 | Emergency (ER) | payer MEDICAID, SELFPAY ==
[2019-10-30 18:35] VITALS: BP 138/85; PULSE 84; RESP 24; TEMP 36.8; O2SAT 96; BMI 26.7
--- NOTE | 2019-10-30 18:51 | EKG12_ITS ---
Test Reason : CP Blood Pressure : / mmHG Vent. Rate : 077 BPM Atrial Rate : 077 BPM P-R Int : 172 ms QRS Dur : 094 ms QT Int : 420 ms P-R-T Axes : 064 -01 045 degrees QTc Int : 475 ms Normal sinus rhythm Normal ECG Confirmed by ANDERSON CHRISTENSEN, ENRIQUETA ([id number]), television news video editor NANCY ARNETT ([id number]) on 11/03/2019 10:28:21 AM Referred By: RONA Confirmed By:MARIBEL BARRON MD
--- NOTE | 2019-10-30 18:52 | RAD_ITS ---
STUDY: X-RAY CHEST REASON FOR EXAM: Female, 54 years old. pt fell earlier today. pt arrives with chest pain and left arm numbness TECHNIQUE: AP portable COMPARISON: September 03 2019 FINDINGS: Prominent markings in the right lower lobe possibly representing subsegmental atelectasis or infiltrate.. There is no demonstrated pleural abnormality. There are surgical clips in the right axilla. Heart is enlarged.. Normal mediastinum and odalis. Normal visualized pulmonary arteries. Normal visualized aortic arch and descending thoracic aorta. Dorsal spine demonstrates degenerative change. Normal visualized ribs, clavicles, and shoulders. There is no demonstrated abnormality of the visualized soft tissue structures of the upper abdomen. RAD/Chest 1 View (Portable) IMPRESSION: Mild subsegmental atelectasis or infiltrate in the right lower lobe. Electronically Signed: Naun Genao MD at 19:31 EST , Service support ,
[2019-10-30 19:03] VITALS: O2SAT 97
[2019-10-30 19:06] LABS: Absolute Lymphocyte Count 3.01 X10^3/uL (0.83-4.51); Absolute Neutrophil Count 2.8 X10^3/uL (2.0-7.7); Basophil# 0.02 X10^3/uL; Basophil% 0.3 % (0-1); Eosinophil# 0.07 X10^3/uL; Eosinophils% 1.1 % (0-5); Hematocrit 40.4 % (37-47); Lymphocyte # 3.01 X10^3/ul (4.0); Lymphocyte % 45.5 % (19-41); Mean Corp Hgb Conc 34.7 g/dL (32-36); Mean Corpuscular Hgb 29.9 pg (27.0-32.0); Mean Corpuscular Volume 86.3 fL (81-99); Mean Platelet Vol. 10.1 fl (6.2-12.0); Monocyte# 0.66 X10^3/uL; NRBC Flagged by Analyzer 0 % (0-5); Neutrophil # 2.83 X10^3/uL (2.7-7.7); Neutrophil % 42.8 % (47-70); Platelet Count 283 K/mm3 (150-450); RBC Distribution Width CV 12.8 % (11.6-14.6); RBC Distribution Width SD 40.1 fl (35.1-43.9); Red Blood Count 4.68 M/mm3 (4.2-5.4); White Blood Count 6.6 K/mm3 (4.4-11.0)
[2019-10-30] MEDS: Aspirin 81 MG TAB.CHEW 324 MG PO (19:06)
[2019-10-30 19:16] LABS: Anion Gap 5 (5-15); BUN 12 mg/dL (7-18); BUN/Creat Ratio 14.3 RATIO (10-20); Calcium,Total 9.7 mg/dL (8.5-10.1); Chloride 98 mmol/L (98-107); Creatinine, Serum 0.84 mg/dL (0.55-1.02); EST Glomerular Filtration Rate 74 mL/min (>60); Est Glom Filt Rate - Afr Amer 90 mL/min (>60); Estimated Creatinine Clearance 64.58 ml/min; Glucose 84 mg/dL (74-106); Potassium 3.1 mmol/L (3.5-5.1); Sodium Level 133 mmol/L (136-145)
[2019-10-30 19:48] VITALS: BP 135/81; PULSE 76; RESP 17; O2SAT 94
--- NOTE | 2019-10-30 20:07 | NURSING ---
CARMEN BERNAL FROM PT'S [facility] ASKS TO BE CALLED WHEN PT IS DC'D OR ADMITTED. [phone]
[2019-10-30 20:17] VITALS: BP 140/78; PULSE 84; RESP 18
--- NOTE | 2019-10-30 20:19 | ED.DCSUM_ITS ---
- ER Visit Summary Date of Service: 10/30/19 Chief Complaint: Chest pain History of Present Illness: The patient is a 54 F with left-sided chest pain that radiates down her left arm. This started after a fall. This is a mechanical fall. She had no other injuries. She does report some nausea. She has a history of AL, diabetes, hypertension. She also has a psychiatric history. Physical Examination: Afebrile and vital signs unremarkable. Patient alert and oriented. Cooperative. Heart regular. Lungs clear. Abdomen soft nontender. Extremities nontender with no edema. Neurovascular intact. Skin appears normal. Test Results: EKG showed sinus rhythm at a rate of 77. Chest x-ray showed right lower lobe atelectasis versus infiltrate. CBC normal. Sodium 133 and potassium 3.1. Troponin normal. Emergency Department Course and Treatment: I was initially unaware that the patient had fallen. She has some baseline psychiatric disease??nothing that should require hospitalization or emergent care. After speaking with her further, her pain started after she fell. Her work-up was unremarkable except for some right side atelectasis versus infiltrate. I spoke with her about this. She is having a cough and occasional sputum. No fevers. We will treat with doxycycline. She has no signs of sepsis or anything that would require hospitalization. Will prescribe antibiotics and pain medicine. Follow-up with primary care. Return if worse. Treatment Plan: As above Disposition: Discharge Impression: 1. Fall 2. Chest wall pain 3. Pneumonia 4. Hypokalemia This note was generated with [employer] dictation software. It may contain incorrect words, spelling, and punctuation that were not noted in review of the chart prior to signing ED Disposition - Plan for ED Patient: Referrals: Kiana Chavarria MD [Primary Care Provider] -
--- NOTE | 2019-10-30 20:25 | ED.DEP ---
ED Disposition - Plan for ED Patient: Instructions: Treating Pneumonia Prescriptions: Doxycycline 100 mg PO BID #20 cap Prescription Printed Ibuprofen [Motrin] 800 mg PO TID PRN PRN #20 tab PRN Reason: Pain Or Fever Prescription Printed Referrals: Kiana Chavarria MD [Primary Care Provider] -
[2019-10-30] MEDS: Doxycycline 100 MG CAPSULE PO (20:28)
== END 2019-10-30 20:31 | disposition home or self-care (01) ==
LOC: ED 18:52
PROVIDERS: Emergency Provider Emergency Medicine; PCP Internal Medicine
DX: R07.89 Other chest pain (principal); W19.XXXA Unspecified fall, initial encounter; J18.9 Pneumonia, unspecified organism; E87.6 Hypokalemia; I25.2 Old myocardial infarction; I10 Essential (primary) hypertension; E11.9 Type 2 diabetes mellitus without complications; Z79.84 Long term (current) use of oral hypoglycemic drugs; Z72.0 Tobacco use
CPT/HCPCS: 71045; 80048; 84484; 85025; 93005; 99285; A4216

== ENCOUNTER 2020-01-16 20:11 | Emergency (ER) | payer MEDICAID, SELFPAY ==
[2020-01-16 20:13] VITALS: BP 155/79; PULSE 89; RESP 16; TEMP 36.8; O2SAT 96; BMI 27.6
[2020-01-16 21:25] VITALS: RESP 16
--- NOTE | 2020-01-16 21:53 | EKG12_ITS ---
Test Reason : [facility] Blood Pressure : / mmHG Vent. Rate : 078 BPM Atrial Rate : 078 BPM P-R Int : 188 ms QRS Dur : 090 ms QT Int : 420 ms P-R-T Axes : 067 008 059 degrees QTc Int : 478 ms Sinus rhythm with marked sinus arrhythmia Otherwise normal ECG Confirmed by EMILIA CHRISTENSEN, BLANCA ([id number]), television news video editor NANCY ARNETT ([id number]) on 01/19/2020 10:11:11 AM Referred By: ANAYELI Confirmed By:BLANCA NIETO MD
[2020-01-16 22:08] LABS: Bacteria 0 SEEN /hpf (None Seen); Mucous, Urine 0 SEEN /hpf (<or=2+); White Blood Cells 0 SEEN /hpf (0-5)
[2020-01-16 22:11] LABS: Glucose, Dipstick Normal (Normal); Ketone-Dipstick Negative (Negative); Leukocyte Esterase-Dipstick Negative /ul (Negative); Nitrite-Dipstick Negative (Negative); Occult Blood-Urine Negative /ul (Negative); Protein-Dipstick Negative (Negative); Specific Gravity, Urine 1.015 (1.002-1.030); Urine Bilirubin Dipstick Negative (Negative); Urine Urobilinogen Normal (Normal)
[2020-01-16 22:17] LABS: Color, Urine Yellow (Yellow); Red Blood Cells-Urine 0-5 SEEN /hpf (0-5); Squamous Epithelial Cells - UA 0-5 SEEN /hpf (5-10); Urine Clarity Clear (Clear)
[2020-01-16 22:25] LABS: Amphetamine Urine VISTA NEGATIVE (<1000 ng/mL); Barbiturate Urine VISTA NEGATIVE (< 200 ng/mL); Benzodiazepine Urine VISTA NEGATIVE (< 200 ng/mL); Cocaine Urine VISTA NEGATIVE (< 300 ng/mL); Ecstacy Urine VISTA NEGATIVE (< 500 ng/mL); Methadone Urine VISTA NEGATIVE (< 300 ng/mL); PCP Urine VISTA NEGATIVE (< 25 ng/mL); THC Urine VISTA NEGATIVE (< 50 ng/mL); Vista UDS pH Range 8
--- NOTE | 2020-01-16 22:25 | ED.VIS.GEN ---
History of Present Illness Chief Complaint: Suicidal Narrative: Patient has a long history of schizophrenia and suicidal thoughts. She states that her voices are making her very agitated over the past couple weeks. Her neighbors have been bothering her and all this is led her to feel suicidal. She states that she is spoken to crisis numerous times in the past week. She last spoke with him tonight. She states that her medications are wrong for her. She sees Dr. escalera at the counseling center. She states she has a plan to kill herself but will not tell me what it is. She states she does not wish to discuss much with me Past Medical History - Allergies and Home Meds Allergies/Adverse Reactions: Allergies lisinopril Allergy (Verified 01/16/20 20:16) Anaphylaxis lithium Allergy (Verified 01/16/20 20:16) Anaphylaxis risperidone [From Risperdal] Allergy (Verified 01/16/20 20:16) Anaphylaxis sertraline HCl [From Zoloft] Allergy (Verified 01/16/20 20:16) Anaphylaxis Primary Care Physician: Kiana Chavarria MD [Primary Care Provider] - Surgical History: cholecystectomy Smoking Status: Current every day smoker - Family History Maternal Family History: Reports: Unknown Review of Systems General: Denies: Chills, Fever, Sweats Eyes: Denies: Visual changes - bilaterally, Diplopia ENT: Denies: Rhinorrhea, Sore throat Cardiovascular: Denies: Chest pain, Palpitations Respiratory: Denies: Dyspnea, Cough, Dyspnea on exertion Gastrointestinal: Denies: Abdominal pain, Nausea, Vomiting, Diarrhea, Melena, Hematochezia Genitourinary: Denies: Dysuria, Hematuria, Frequency Musculoskeletal: Denies: Back pain, Extremity Pain Skin: Denies: Rash, Wounds Neurological: Denies: Headache, Weakness, Numbness Psych: Reports: Depression, Suicidal thoughts Physical Exam Vital Signs/Narrative: Vital Signs Temp Pulse Resp BP Pulse Ox 01/16/20 21:25 16 01/16/20 20:13 98.3 F 89 16 155/79 H 96 Inital Vital Signs reviewed: Yes General: Well nourished, Well developed, No Acute Distress Head: Normocephalic, Atraumatic Eyes: Perrl, EOMI ENT: Moist mucous membranes, No rhinorrhea Neck: Supple, Nontender Cardiovascular: Regular rate, Regular rhythm, No murmurs Respiratory: No distress, CTA bilaterally, Chest nontender Abdomen: Soft, Nontender, Nondistended, Normal bowel sounds Back: Nontender, Normal Inspection Extremities: Nontender, No edema Skin: Normal color, No rash Neurological: Alert, Oriented x3, Cranial nerves II-XII grossly intact, Normal Strength, Normal Sensation Psychological: Agitated, - - Patient states she admits to feeling suicidal. Diagnostic/Tx/Re-eval - EKG Initial EKG Interpretation: Sinus Rhythm - EKG shows sinus rhythm at a rate of 78 no concerning features of ACS. - Medical Decision Making Patient will be cleared for crisis evaluation. ED Disposition - Plan for ED Patient: Diagnosis: Schizophrenia, Suicidal ideation Referrals: Kiana Chavarria MD [Primary Care Provider] -
[2020-01-16 22:36] LABS: Absolute Lymphocyte Count 2.82 X10^3/uL (0.83-4.51); Absolute Neutrophil Count 5.1 X10^3/uL (2.0-7.7); Basophil# 0.04 X10^3/uL; Basophil% 0.4 % (0-1); Eosinophil# 0.22 X10^3/uL; Eosinophils% 2.4 % (0-5); Hematocrit 38.4 % (37-47); Hemoglobin 13.1 g/dL (12.0-15.0); Lymphocyte # 2.82 X10^3/ul (4.0); Mean Corp Hgb Conc 34.1 g/dL (32-36); Mean Corpuscular Volume 87.9 fL (81-99); Mean Platelet Vol. 10.3 fl (6.2-12.0); Monocyte# 0.95 X10^3/uL; Monocyte% 10.4 % (0-10); NRBC Flagged by Analyzer 0 % (0-5); Neutrophil # 5.05 X10^3/uL (2.7-7.7); Neutrophil % 55.5 % (47-70); Platelet Count 226 K/mm3 (150-450); RBC Distribution Width CV 13.7 % (11.6-14.6); RBC Distribution Width SD 44.3 fl (35.1-43.9); Red Blood Count 4.37 M/mm3 (4.2-5.4); White Blood Count 9.1 K/mm3 (4.4-11.0)
[2020-01-16 22:49] LABS: Internal QC Validated? YES +Cl - CLEAR BKGD; Pregnancy, Serum, hCG Quali. NEGATIVE Negative
[2020-01-16 23:00] LABS: Anion Gap 6 (5-15); BUN 15 mg/dL (7-18); BUN/Creat Ratio 19.8 RATIO (10-20); Calcium,Total 9.8 mg/dL (8.5-10.1); Chloride 106 mmol/L (98-107); Creatinine, Serum 0.76 mg/dL (0.55-1.02); EST Glomerular Filtration Rate 84 mL/min (>60); Est Glom Filt Rate - Afr Amer 101 mL/min (>60); Estimated Creatinine Clearance 71.37 ml/min; Glucose 190 mg/dL (74-106); Potassium 3.6 mmol/L (3.5-5.1); Sodium Level 141 mmol/L (136-145); Thyroid Stim Hormone (TSH) 1.89 uIU/mL (0.358-3.74)
[2020-01-16 23:10] LABS: Alcohol, Blood (Medical)-Serum < 3.0 mg/dL
--- NOTE | 2020-01-16 23:26 | ED.RN ---
INFORMED FAXED TO CRISIS AT THIS TIME
--- NOTE | 2020-01-16 23:57 | ED.RN ---
GOT VERBAL OKAY FROM DR. ASHRAF TO GIVE PTS NIGHT MEDS.
[2020-01-17] VITALS (9 sets, daily range): BP systolic 111–140; BP diastolic 68–91; PULSE 86–94; RESP 18; TEMP 37.2–37.3; O2SAT 95–96
--- NOTE | 2020-01-17 01:37 | ED.RN ---
CRISIS EVAL PATIENT. WILL WORK ON PLACEMENT FOR PATIENT
[2020-01-17] MEDS: Zolpidem Tartrate 5 MG Tablet PO (03:01)
[2020-01-17] MEDS: LORazepam 2 MG/ML Syringe 1 MG IM (04:59)
[2020-01-17] MEDS: ARIPiprazole 10 MG Tablet 30 MG PO (07:55)
[2020-01-17] MEDS: Metoprolol(XL)Succ 25 MG Tablet PO (07:55)
[2020-01-17] MEDS: metFORMIN HCl 500 MG Tablet PO (07:56)
[2020-01-17] MEDS: Fenofibrate 48 MG Tablet PO (07:56)
[2020-01-17] MEDS: hydroCHLOROthiazide 12.5mg 12.5 MG PO (07:56)
[2020-01-17] MEDS: Divalproex Sodium 125 MG Tablet PO (07:56)
[2020-01-17] MEDS: glipiZIDE 5 MG Tablet PO (07:56)
[2020-01-17] MEDS: amLODIPine 10 MG Tablet PO (08:20)
[2020-01-17] MEDS: Aspirin 81 MG TAB.CHEW PO (08:20)
== END 2020-01-17 10:24 ==
LOC: ED 23:38
PROVIDERS: Emergency Provider Emergency Medicine; PCP Internal Medicine
DX: F20.9 Schizophrenia, unspecified (principal); R45.851 Suicidal ideations; F17.200 Nicotine dependence, unspecified, uncomplicated
CPT/HCPCS: 80048; 80307; 80320; 81001; 84443; 84703; 85025; 93005; 96372; 99285; G0480

== ENCOUNTER → 2020-02-09 10:39 | Outpatient (CLI) | payer MEDICAID, SELFPAY ==
[2020-01-16 20:13] VITALS: BMI 27.6
[2020-02-09 11:05] LABS: Platelet Count 264 K/mm3 (150-450)
[2020-02-09 11:24] LABS: AST(SGOT) 7 U/L (15-37); Alanine Aminotransfer ALT/SGPT 21 U/L (13-56)
[2020-02-09 11:50] LABS: Valproic Acid (Depakene) Level 42 ug/mL (50-100)
== END ==
PROVIDERS: PCP Internal Medicine; Referring Provider Psychiatry & Neurology Psychiatry; Visit Provider Psychiatry & Neurology Psychiatry
DX: Z79.899 Other long term (current) drug therapy (principal)
CPT/HCPCS: 36415; 80164; 82140; 84450; 84460; 85049

== ENCOUNTER 2020-02-28 16:40 | Emergency (ER) | payer MEDICAID, SELFPAY ==
[2020-02-28 16:42] VITALS: BP 145/88; PULSE 94; RESP 18; TEMP 37.3; O2SAT 95; BMI 28.0
--- NOTE | 2020-02-28 16:56 | ED.DCSUM_ITS ---
History of Present Illness Chief Complaint: Back Informant: Patient Onset: - Timing: Waxes and wanes - Years Current Severity: Mild Narrative: The patient has a long history for years of intermittent low lumbar back pain she is been evaluated for this by her outpatient provider she has no history of known lumbar back disease or disorder, she had exacerbation of the condition, she is on multiple medications from her providers she is allowed to take Tylenol for the back pain she did so no improvement she lives in a shelter they called the paramedics and she was brought in, she is had no bowel or bladder complaints no abdominal pain normal bowel bladder habits no numbness weakness paresthesias no trauma no other acute issues she points directly to the left paraspinal area complain of discomfort here that is the chronic focus of her pain syndrome Past Medical History - Allergies and Home Meds Allergies/Adverse Reactions: Allergies lisinopril Allergy (Verified 02/28/20 16:42) Anaphylaxis lithium Allergy (Verified 02/28/20 16:42) Anaphylaxis risperidone [From Risperdal] Allergy (Verified 02/28/20 16:42) Anaphylaxis sertraline HCl [From Zoloft] Allergy (Verified 02/28/20 16:42) Anaphylaxis Primary Care Physician: Kiana Chavarria MD [Primary Care Provider] - Past Medical History: - - Includes as above full health disorder Surgical History: cholecystectomy Smoking Status: Current every day smoker - Family History Maternal Family History: Reports: Unknown Review of Systems General: Denies: Chills, Fever, Sweats Eyes: Denies: Visual changes - bilaterally, Diplopia ENT: Denies: Rhinorrhea, Sore throat Cardiovascular: Denies: Chest pain, Palpitations Respiratory: Denies: Dyspnea, Cough, Dyspnea on exertion Gastrointestinal: Denies: Abdominal pain, Nausea, Vomiting, Diarrhea, Melena, Hematochezia Genitourinary: Denies: Dysuria, Hematuria, Frequency Musculoskeletal: Reports: Back pain. Denies: Extremity Pain Skin: Denies: Rash, Wounds Neurological: Denies: Headache, Weakness, Numbness Physical Exam Vital Signs/Narrative: Vital Signs Temp Pulse Resp BP Pulse Ox 02/28/20 16:42 99.1 F 94 18 145/88 H 95 General: Well nourished, Well developed, No Acute Distress Head: Normocephalic, Atraumatic Eyes: Perrl, EOMI ENT: Moist mucous membranes, No rhinorrhea Neck: Supple, Nontender Cardiovascular: Regular rate, Regular rhythm, No murmurs Respiratory: No distress, CTA bilaterally, Chest nontender Abdomen: Soft, Nontender, Nondistended, Normal bowel sounds Back: Nontender, Normal Inspection, - - The patient's back is completely unremarkable nontender there is no tenderness to the spot that she is pointing to which is the low left para lumbar area over the posterior iliac crest she is able to stand and walk without difficulty she can heel raise toe raise knee bend and walk around the room with no difficulty or complaints Extremities: Nontender, No edema Skin: Normal color, No rash Neurological: Alert, Oriented x3, Cranial nerves II-XII grossly intact, Normal Strength, Normal Sensation Psychological: Normal affect, Normal Mood Diagnostic/Tx/Re-eval - Medical Decision Making Given all the above with her chronic history of the above there appears to be nothing new or acute this is a chronic exacerbation of this chronic pain syndrome she agrees with that assessment she has no history of trauma or kidney stones or any GI issues or neurologic issues or illness, She indicates she is had extensive outpatient evaluation for this including x-r ays other studies are always negative, none appear indicated now, she is treated with Toradol and Naprosyn for pain and should follow-up with outpatient providers for continuing management options Home stable Final impression acute recurrent left lumbar back pain ED Disposition - Plan for ED Patient: Instructions: ED Spasm Back No Trauma Prescriptions: Naproxen [Naprosyn] 500 mg PO BID PRN #20 tab Prescription Printed Referrals: Kiana Chavarria MD [Primary Care Provider] -
[2020-02-28] MEDS: Ketorolac 60 MG/2 ML Vial IM (16:59)
--- NOTE | 2020-02-28 17:00 | ED.DEP ---
ED Disposition - Plan for ED Patient: Instructions: ED Spasm Back No Trauma Prescriptions: Naproxen [Naprosyn] 500 mg PO BID PRN #20 tab Prescription Printed Referrals: Kiana Chavarria MD [Primary Care Provider] -
== END 2020-02-28 17:29 | disposition home or self-care (01) ==
LOC: ED 17:22
PROVIDERS: Emergency Provider Emergency Medicine; PCP Internal Medicine
DX: M54.5 Low back pain (principal); F17.200 Nicotine dependence, unspecified, uncomplicated; Z79.82 Long term (current) use of aspirin
CPT/HCPCS: 96372; 99284

== ENCOUNTER → 2020-06-15 09:20 | Outpatient (CLI) | payer MEDICAID, SELFPAY | PROVIDERS: PCP Internal Medicine; Referring Provider Nurse Practitioner Family; Visit Provider Nurse Practitioner Family | DX: Z20.828 Contact with and (suspected) exposure to other viral communicable diseases (principal); R09.81 Nasal congestion; R05 Cough | CPT/HCPCS: 87635; C9803; U0003 ==

== ENCOUNTER 2020-07-23 13:14 | Emergency (ER) | payer MEDICAID, SELFPAY ==
[2020-07-23 13:17] VITALS: BP 137/93; PULSE 110; RESP 18; TEMP 36.6; O2SAT 97; BMI 31.7
--- NOTE | 2020-07-23 13:51 | ED.VIS.GEN ---
History of Present Illness Chief Complaint: Suicidal Informant: Patient, Family Onset: Today Context: Gradual Onset Current Severity: Mild Maximum Severity: Moderate Narrative: The patient is a 54-year-old female with medical history significant for bipolar disorder and schizophrenia that presents from a nursing home. Apparently, she got to a verbal altercation with a friend at the nursing home. She states that she was depressed and wanted to hurt herself. By the time she arrived here, the patient is recanting. She states it was just a misunderstanding. She states she does feel safe and has no thoughts of self-harm. She has been compliant with her medications. Prior similar symptoms: Yes Recent Illness/Hospitalization: No Past Medical History - Allergies and Home Meds Allergies/Adverse Reactions: Allergies lisinopril Allergy (Verified 07/23/20 13:45) Anaphylaxis lithium Allergy (Verified 07/23/20 13:45) Anaphylaxis risperidone [From Risperdal] Allergy (Verified 07/23/20 13:45) Anaphylaxis sertraline HCl [From Zoloft] Allergy (Verified 07/23/20 13:45) Anaphylaxis Primary Care Physician: Kiana Chavarria MD [Primary Care Provider] - Prior records reviewed: Yes Past Medical History: - - Schizophrenia, bipolar Surgical History: cholecystectomy Smoking Status: Current every day smoker - Family History Maternal Family History: Reports: Unknown Review of Systems General: Denies: Chills, Fever, Sweats Eyes: Denies: Visual changes - bilaterally, Diplopia ENT: Denies: Rhinorrhea, Sore throat Cardiovascular: Denies: Chest pain, Palpitations Respiratory: Denies: Dyspnea, Cough, Dyspnea on exertion Gastrointestinal: Denies: Abdominal pain, Nausea, Vomiting, Diarrhea, Melena, Hematochezia Genitourinary: Denies: Dysuria, Hematuria, Frequency Musculoskeletal: Denies: Back pain, Extremity Pain Skin: Denies: Rash, Wounds Neurological: Denies: Headache, Weakness, Numbness Physical Exam Vital Signs/Narrative: Vital Signs Temp Pulse Resp BP Pulse Ox 07/23/20 13:17 97.8 F 110 H 18 137/93 H 97 Inital Vital Signs reviewed: Yes General: Well nourished, Well developed, No Acute Distress Head: Normocephalic, Atraumatic Eyes: Perrl, EOMI ENT: Moist mucous membranes, No rhinorrhea Neck: Supple, Nontender Cardiovascular: Regular rate, Regular rhythm, No murmurs Respiratory: No distress, CTA bilaterally, Chest nontender Abdomen: Soft, Nontender, Nondistended, Normal bowel sounds Back: Nontender, Normal Inspection Extremities: Nontender, No edema Skin: Normal color, No rash Neurological: Alert, Oriented x3, Cranial nerves II-XII grossly intact, Normal Strength, Normal Sensation Psychological: Normal affect, Normal Mood Diagnostic/Tx/Re-eval - Medical Decision Making Patient is nonsuicidal. She was seen by social work. It was thought that her symptoms are likely situational. She denies any thoughts of self-harm. She does feel safe at the nursing home and does have staff that can watch her. At this point, I do not feel that she requires pink slip. She will be discharged back to her nursing home. Impression 1. Depression ED Disposition - Plan for ED Patient: Instructions: ED Depression Referrals: Kiana Chavarria MD [Primary Care Provider] -
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
[2020-07-23 13:59] LABS: Absolute Lymphocyte Count 2.15 X10^3/uL (0.83-4.51); Absolute Neutrophil Count 4.7 X10^3/uL (2.0-7.7); Basophil# 0.03 X10^3/uL; Basophil% 0.4 % (0-1); Eosinophils% 1.3 % (0-5); Hemoglobin 14.4 g/dL (12.0-15.0); Lymphocyte # 2.15 X10^3/ul (4.0); Lymphocyte % 27.2 % (19-41); Mean Corp Hgb Conc 33.5 g/dL (32-36); Mean Corpuscular Hgb 30.7 pg (27.0-32.0); Mean Corpuscular Volume 91.7 fL (81-99); Mean Platelet Vol. 10.4 fl (6.2-12.0); Monocyte% 11.4 % (0-10); NRBC Flagged by Analyzer 0 % (0-5); Neutrophil # 4.69 X10^3/uL (2.7-7.7); Neutrophil % 59.4 % (47-70); Platelet Count 264 K/mm3 (150-450); RBC Distribution Width SD 43.8 fl (35.1-43.9); Red Blood Count 4.69 M/mm3 (4.2-5.4); White Blood Count 7.9 K/mm3 (4.4-11.0)
--- NOTE | 2020-07-23 14:18 | CM.ED ---
Social Work Telephone call to patient guardian a 2nd time, Brina. No answer. Voicemail left. Yesenia Short MSW, LAURENT
[2020-07-23 14:20] LABS: Anion Gap 7 (5-15); BUN 12 mg/dL (7-18); BUN/Creat Ratio 13.2 RATIO (10-20); Calcium,Total 9.8 mg/dL (8.5-10.1); Chloride 100 mmol/L (98-107); Creatinine, Serum 0.91 mg/dL (0.55-1.02); EST Glomerular Filtration Rate 68 mL/min (>60); Est Glom Filt Rate - Afr Amer 82 mL/min (>60); Estimated Creatinine Clearance 59.61 ml/min; Glucose 180 mg/dL (74-106); Potassium 3.5 mmol/L (3.5-5.1); Sodium Level 136 mmol/L (136-145)
--- NOTE | 2020-07-23 14:33 | CM.ED ---
Social Work Telephone call to Lakeisha Clark. This child protective services social worker inquiring about other ways to contact patient guardian, Brina as Brina works for the counseling center. Lakeisha to also inquire to patient alf about patient getting transportation back to the alf. Lakeisha to call this child protective services social worker back. Yesenia Short MSW, JOHNS
--- NOTE | 2020-07-23 14:38 | CM.ED ---
Social Work Telephone call received from Brina Fox. Brina providing verbal permission to treat patient today. Brina also agreeable to plan for patient to return to the community Brina reports to be unable to provide transportation. Brina reports first mode of transportation would be the [facility] and second would be patient telephonic case manager, Bee Castillo. This social media assistant thanking Brina. Will continue to wait return phone call from [place] in regards to transportation. Yesenia SLAUGHTER, LAURENT
--- NOTE | 2020-07-23 14:53 | CM.ED ---
Social Work Telephone call to patient jail, [facility]. A jail member is able to come and provide transportation back to the jail for patient. This social services director updated patient. Patient to wait outside for ride. Yesenia SLAUGHTER, LAURENT
[2020-07-23 15:00] VITALS: RESP 18
== END 2020-07-23 15:20 | disposition home or self-care (01) ==
LOC: ED 14:20
PROVIDERS: Emergency Provider Emergency Medicine; PCP Internal Medicine
DX: F31.9 Bipolar disorder, unspecified (principal); F20.9 Schizophrenia, unspecified; F17.200 Nicotine dependence, unspecified, uncomplicated
CPT/HCPCS: 80048; 80320; 85025; 99282; G0480

== ENCOUNTER 2020-07-31 14:28 | Emergency (ER) | payer MEDICAID, SELFPAY ==
[2020-07-31 14:29] VITALS: BP 152/84; PULSE 108; RESP 16; TEMP 37.2; O2SAT 97; BMI 29.2
--- NOTE | 2020-07-31 15:32 | ED.VIS.BACK ---
History of Present Illness Chief Complaint: Back Informant: Patient Onset: Days Context: Gradual Onset Timing: Continuous Quality: Aching Location: Lumbar Narrative: Patient is a 54-year-old female with history of developmental delay, chronic back pain and psychiatric illness presenting with atraumatic low back pain. She states it is in her lower lumbar region and radiates down her left leg. Is worse with movement and better at rest when she sits in her soft chair. She took Tylenol about an hour prior to arrival with no improvement of her symptoms. Her symptoms have been going on since Sunday, 3 days ago. She denies any injury or new activities that could have flared it up. She denies any weakness of her legs. She denies any urinary symptoms. She denies any incontinence or perineal numbness. No other complaints at this time. Prior similar symptoms: Yes, With Prior Back Pain Past Medical History - Allergies and Home Meds Allergies/Adverse Reactions: Allergies lisinopril Allergy (Verified 07/23/20 13:45) Anaphylaxis lithium Allergy (Verified 07/23/20 13:45) Anaphylaxis risperidone [From Risperdal] Allergy (Verified 07/23/20 13:45) Anaphylaxis sertraline HCl [From Zoloft] Allergy (Verified 07/23/20 13:45) Anaphylaxis Primary Care Physician: Kiana Chavarria MD [Primary Care Provider] - Past Medical History: - - Depression, schizophrenia, mental deficiency, hypertension, diabetes mellitus Surgical History: cholecystectomy Smoking Status: Former smoker - Family History Maternal Family History: Reports: Unknown Review of Systems General: Denies: Chills, Fever, Sweats Eyes: Denies: Visual changes - bilaterally, Diplopia ENT: Denies: Rhinorrhea, Sore throat Cardiovascular: Denies: Chest pain, Palpitations Respiratory: Denies: Dyspnea, Cough, Dyspnea on exertion Gastrointestinal: Denies: Abdominal pain, Nausea, Vomiting, Diarrhea, Melena, Hematochezia Genitourinary: Denies: Dysuria, Hematuria, Frequency Musculoskeletal: Reports: Back pain. Denies: Extremity Pain Skin: Denies: Rash, Wounds Neurological: Denies: Headache, Weakness, Numbness Physical Exam Vital Signs/Narrative: Vital Signs Temp Pulse Resp BP Pulse Ox 07/31/20 14:29 98.9 F 108 H 16 152/84 H 97 Inital Vital Signs reviewed: Yes General: Well nourished, Well developed Head: Normocephalic, Atraumatic Eyes: Perrl, EOMI ENT: Moist mucous membranes, No rhinorrhea Neck: Supple, Nontender Cardiovascular: Regular rate, Regular rhythm, No murmurs Respiratory: No distress, CTA bilaterally, Chest nontender Abdomen: Soft, Nontender, Nondistended, Normal bowel sounds Back: Normal Inspection, Nontender, Negative SLR - Right, Negative SLR - Left. Negative for: Spinal tenderness, Paraspinal Tenderness, CVA tenderness Extremeties: Nontender, No edema, - - Normal strength with plantar and dorsiflexion of the lower extremities. Skin: Normal color, No rash Neuro: Alert, Oriented, Normal Strength, Normal Sensation, Normal DTR, Normal Gait. Negative for: Weakness, Parasthesia Psychological: Normal affect Diagnostic/Tx/Re-eval - Medical Decision Making Patient evaluated for acute on chronic low back pain. She had prior evaluations for this outpatient. The pain is not particularly reproducible but does sound like it is more of a sciatica. Patient recent blood work shows normal kidney function. She is given a dose of Toradol and Norflex in the ER. Has had this in the past in the ER which is helped with her pain. She be discharged home with a course of Flexeril and Naprosyn continue to take Tylenol. Patient is on any findings consistent with cauda equina syndrome and has no neurologic deficits on exam. Patient is counseled on signs and symptoms requiring return to the emergency room. Patient verbalizes agreement and understand this plan. Patient discharged home in stable and improved condition. ED Disposition - Plan for ED Patient: Disposition: Home or Assisted Living Diagnosis: Back pain of lumbar region with sciatica Instructions: ED Back Pain Acute or Chronic Prescriptions: cycloBENZAPRine HCl [Flexeril] 10 mg PO TID PRN #20 tab PRN Reason: Muscle Spasm Prescription Printed Naproxen [Naprosyn] 500 mg PO BID #14 tab Prescription Printed Referrals: Kiana Chavarria MD [Primary Care Provider] -
[2020-07-31] MEDS: Orphenadrine 100 MG Tablet PO (15:44)
[2020-07-31] MEDS: Ketorolac 30 MG/ML Syringe IM (15:44)
== END 2020-07-31 16:17 | disposition home or self-care (01) ==
PROVIDERS: Emergency Provider Emergency Medicine; PCP Internal Medicine
DX: M54.40 Lumbago with sciatica, unspecified side (principal); G89.29 Other chronic pain; I10 Essential (primary) hypertension; E11.9 Type 2 diabetes mellitus without complications; F32.9 Major depressive disorder, single episode, unspecified; F20.9 Schizophrenia, unspecified; Z88.8 Allergy status to other drugs, medicaments and biological substances; Z79.84 Long term (current) use of oral hypoglycemic drugs; Z79.82 Long term (current) use of aspirin; Z79.899 Other long term (current) drug therapy; Z87.891 Personal history of nicotine dependence
CPT/HCPCS: 96372; 99284

== ENCOUNTER → 2020-08-13 07:46 | Outpatient (CLI) | payer MEDICAID, SELFPAY ==
[2020-07-31 14:29] VITALS: BMI 29.2
[2020-08-13 08:03] LABS: Platelet Count 241 K/mm3 (150-450)
[2020-08-13 08:29] LABS: Valproic Acid (Depakene) Level 54 ug/mL (50-100)
[2020-08-13 08:31] LABS: AST(SGOT) 9 U/L (15-37); Alanine Aminotransfer ALT/SGPT 26 U/L (13-56); Prolactin 80.9 ng/mL
[2020-08-13 08:35] LABS: Hemoglobin A1c 6.5 % (3.8-5.6)
== END ==
PROVIDERS: PCP Internal Medicine; Referring Provider Psychiatry & Neurology Psychiatry; Visit Provider Psychiatry & Neurology Psychiatry
DX: Z79.899 Other long term (current) drug therapy (principal)
CPT/HCPCS: 36415; 80164; 82140; 83036; 84146; 84450; 84460; 85049

== ENCOUNTER 2020-10-23 19:10 | Emergency (ER) | payer MEDICAID, SELFPAY ==
[2020-10-23 19:10] VITALS: BP 153/93; PULSE 127; RESP 15; TEMP 36.1; O2SAT 97; BMI 28.5
--- NOTE | 2020-10-23 19:55 | ED.VIS.GEN ---
History of Present Illness Chief Complaint: Suicidal Informant: Patient Narrative: 55-year-old female from a intermediate presenting with suicidal ideation and a plan. She states that her family does not call or write her even though she writes multiple letters. They will give her the phone number to them either. Patient states that her plan is to either run out in front of a semi or shoot herself with a gun. Patient states she has attempted to kill herself by overdosing on unknown meds. - Past Medical History (1) Suicidal ideation Status: Chronic (2) Diabetes Status: Chronic (3) Hypertension Status: Chronic (4) Schizophrenia Status: Chronic Past Medical History - Allergies and Home Meds Allergies/Adverse Reactions: Allergies lisinopril Allergy (Verified 10/23/20 19:15) Anaphylaxis lithium Allergy (Verified 10/23/20 19:15) Anaphylaxis risperidone [From Risperdal] Allergy (Verified 10/23/20 19:15) Anaphylaxis sertraline HCl [From Zoloft] Allergy (Verified 10/23/20 19:15) Anaphylaxis Primary Care Physician: Kiana Chavarria MD [Primary Care Provider] - Prior records reviewed: Yes Past Medical History: - - Reviewed in problem list Surgical History: cholecystectomy Lives: - - residential Smoking Status: Current every day smoker Alcohol: None Drugs: None - Family History Maternal Family History: Reports: Unknown Review of Systems General: Denies: Chills, Fever, Sweats Eyes: Denies: Visual changes - bilaterally, Diplopia ENT: Denies: Rhinorrhea, Sore throat Cardiovascular: Denies: Chest pain, Palpitations Respiratory: Denies: Dyspnea, Cough, Dyspnea on exertion Gastrointestinal: Denies: Abdominal pain, Nausea, Vomiting, Diarrhea, Melena, Hematochezia Genitourinary: Denies: Dysuria, Hematuria, Frequency Musculoskeletal: Denies: Back pain, Extremity Pain Skin: Denies: Rash, Wounds Neurological: Denies: Headache, Weakness, Numbness Psych: Reports: Depression, Suicidal thoughts, Suicidal ideations Physical Exam Vital Signs/Narrative: Vital Signs Temp Pulse Resp BP Pulse Ox 10/23/20 19:10 97.0 F L 127 H 15 153/93 H 97 Inital Vital Signs reviewed: Yes General: Well nourished, No Acute Distress Head: Normocephalic, Atraumatic Eyes: Perrl, EOMI ENT: Moist mucous membranes, No rhinorrhea Cardiovascular: Regular rate, Regular rhythm Respiratory: No distress, CTA bilaterally Abdomen: Soft, Nontender Skin: Normal color, No rash Neurological: Alert, Oriented x3, Cranial nerves II-XII grossly intact Psychological: Depressed. Negative for: Agitated Diagnostic/Tx/Re-eval Laboratory Data 10/23/20 10/23/20 10/23/20 19:30 19:30 19:30 WBC 11.3 H RBC 4.56 Hgb 14.1 Hct 41.3 MCV 90.6 MCH 30.9 MCHC 34.1 RDW Std Deviation 43.5 RDW Coeff of [place] 13.0 Plt Count 282 MPV 10.7 Immature Gran % (Auto) 0.400 Neut % (Auto) 68.6 Lymph % (Auto) 21.3 [place] % (Auto) 8.9 Eos % (Auto) 0.4 Baso % (Auto) 0.4 Absolute Neuts (auto) 7.7 Absolute Lymphs (auto) 2.40 Nucleated RBC % 0 Sodium 130 L Potassium 3.3 L Chloride 94 L Carbon Dioxide 27.0 Anion Gap 9 BUN 12 Creatinine 0.70 Estim Creat Clear Calc 76.57 Est GFR (MDRD) Af Amer 111 Est GFR (MDRD) Non-Af 92 BUN/Creatinine Ratio 17.2 Glucose 156 H Calcium 9.4 Urine Color Urine Clarity Urine pH Ur Specific [place] Urine Protein Urine Glucose (UA) Urine Ketones Urine Occult Blood Urine Nitrite Urine Bilirubin Urine Urobilinogen Ur Leukocyte Esterase Urine RBC Urine WBC Ur Squamous Epith Cells Amorphous Sediment Urine Bacteria Urine Mucus Urine Opiates Screen Urine Methadone Screen Ur Barbiturates Screen Ur Phencyclidine Scrn Ur Amphetamines Screen U Methamphetamin-MDMA U Benzodiazepines Scrn Urine Cocaine Screen U Cannabinoids Screen Ur Drug Screen Comment Ethyl Alcohol < 3.0 10/23/20 10/23/20 19:30 19:30 WBC RBC Hgb Hct MCV MCH MCHC RDW Std Deviation RDW Coeff of [place] Plt Count MPV Immature Gran % (Auto) Neut % (Auto) Lymph % (Auto) [place] % (Auto) Eos % (Auto) Baso % (Auto) Absolute Neuts (auto) Absolute Lymphs (auto) Nucleated RBC % Sodium Potassium Chloride Carbon Dioxide Anion Gap BUN Creatinine Estim Creat Clear Calc Est GFR (MDRD) Af Amer Est GFR (MDRD) Non-Af BUN/Creatinine Ratio Glucose Calcium Urine Color Yellow Urine Clarity Clear Urine pH 6.0 Ur Specific [place] 1.020 Urine Protein 100 H Urine Glucose (UA) 250 H Urine Ketones 5 H Urine Occult Blood 25 H Urine Nitrite Negative Urine Bilirubin Negative Urine Urobilinogen Normal Ur Leukocyte Esterase 25 H Urine RBC 0-5 SEEN Urine WBC 0-5 SEEN Ur Squamous Epith Cells 0-5 SEEN Amorphous Sediment 1+ URATE Urine Bacteria 0 SEEN Urine Mucus 0 SEEN Urine Opiates Screen NEGATIVE Urine Methadone Screen NEGATIVE Ur Barbiturates Screen NEGATIVE Ur Phencyclidine Scrn NEGATIVE Ur Amphetamines Screen NEGATIVE U Methamphetamin-MDMA NEGATIVE U Benzodiazepines Scrn NEGATIVE Urine Cocaine Screen NEGATIVE U Cannabinoids Screen NEGATIVE Ur Drug Screen Comment Ethyl Alcohol - Medical Decision Making 55-year-old female presenting with suicidal ideation and a plan. Patient's physical exam is unremarkable. Her vital signs are stable and she is afebrile. Her clearance lab work is all fairly unremarkable. Patient is medically cleared at this time. She has spoken to crisis and is awaiting placement. Impression: 1. Suicidal ideation with a plan ED Disposition - Plan for ED Patient: Referrals: Kiana Chavarria MD [Primary Care Provider] -
[2020-10-23 19:59] VITALS: RESP 16
[2020-10-23 20:07] LABS: Bacteria 0 SEEN /hpf (None Seen); Mucous, Urine 0 SEEN /hpf (<or=2+)
[2020-10-23 20:12] LABS: Absolute Neutrophil Count 7.7 X10^3/uL (2.0-7.7); Basophil# 0.04 X10^3/uL; Basophil% 0.4 % (0-1); Eosinophil# 0.05 X10^3/uL; Eosinophils% 0.4 % (0-5); Hematocrit 41.3 % (37-47); Hemoglobin 14.1 g/dL (12.0-15.0); Lymphocyte % 21.3 % (19-41); Mean Corp Hgb Conc 34.1 g/dL (32-36); Mean Corpuscular Hgb 30.9 pg (27.0-32.0); Mean Corpuscular Volume 90.6 fL (81-99); Mean Platelet Vol. 10.7 fl (6.2-12.0); Monocyte% 8.9 % (0-10); NRBC Flagged by Analyzer 0 % (0-5); Neutrophil # 7.74 X10^3/uL (2.7-7.7); Neutrophil % 68.6 % (47-70); Platelet Count 282 K/mm3 (150-450); RBC Distribution Width SD 43.5 fl (35.1-43.9); Red Blood Count 4.56 M/mm3 (4.2-5.4); White Blood Count 11.3 K/mm3 (4.4-11.0)
[2020-10-23 20:13] LABS: Color, Urine Yellow (Yellow); Glucose, Dipstick 250 mg/dl (Normal); Ketone-Dipstick 5 mg/dl (Negative); Leukocyte Esterase-Dipstick 25 /ul (Negative); Nitrite-Dipstick Negative (Negative); Occult Blood-Urine 25 /ul (Negative); Protein-Dipstick 100 mg/dl (Negative); Urine Bilirubin Dipstick Negative (Negative); Urine Clarity Clear (Clear); Urine Urobilinogen Normal (Normal)
[2020-10-23 20:23] LABS: Alcohol, Blood (Medical)-Serum < 3.0 mg/dL; Anion Gap 9 (5-15); BUN 12 mg/dL (7-18); BUN/Creat Ratio 17.2 RATIO (10-20); Calcium,Total 9.4 mg/dL (8.5-10.1); Chloride 94 mmol/L (98-107); EST Glomerular Filtration Rate 92 mL/min (>60); Est Glom Filt Rate - Afr Amer 111 mL/min (>60); Estimated Creatinine Clearance 76.57 ml/min; Glucose 156 mg/dL (74-106); Potassium 3.3 mmol/L (3.5-5.1); Sodium Level 130 mmol/L (136-145)
[2020-10-23 20:24] LABS: Amorphous Sediment 1+ URATE; Red Blood Cells-Urine 0-5 SEEN /hpf (0-5); Squamous Epithelial Cells - UA 0-5 SEEN /hpf (5-10); White Blood Cells 0-5 SEEN /hpf (0-5)
[2020-10-23 20:25] LABS: Amphetamine Urine VISTA NEGATIVE (<1000 ng/mL); Barbiturate Urine VISTA NEGATIVE (< 200 ng/mL); Benzodiazepine Urine VISTA NEGATIVE (< 200 ng/mL); Cocaine Urine VISTA NEGATIVE (< 300 ng/mL); Ecstacy Urine VISTA NEGATIVE (< 500 ng/mL); Methadone Urine VISTA NEGATIVE (< 300 ng/mL); PCP Urine VISTA NEGATIVE (< 25 ng/mL); THC Urine VISTA NEGATIVE (< 50 ng/mL); Vista UDS pH Range 6
--- NOTE | 2020-10-23 20:57 | ED.RN ---
[facility]ED [facility], AND FAXED OVER PAPER WORK
[2020-10-23 21:00] VITALS: RESP 16
--- NOTE | 2020-10-23 21:44 | ED.RN ---
crisis called and speaking to patient at this time
[2020-10-23 22:00] VITALS: RESP 16
--- NOTE | 2020-10-23 22:18 | ED.RN ---
crisis evauled patient that are considering placement at this time
[2020-10-23 23:00] VITALS: RESP 14
[2020-10-24] VITALS: BP 111/61; PULSE 77; RESP 17; O2SAT 99
[2020-10-24 01:00] VITALS: RESP 18
[2020-10-24 02:00] VITALS: RESP 17
[2020-10-24 03:00] VITALS: RESP 17
--- NOTE | 2020-10-24 03:08 | ED.RN ---
physicians ambulance called and eta 30-[address]
[2020-10-24 03:51] VITALS: BP 136/78; PULSE 76; RESP 16; O2SAT 98
== END 2020-10-24 04:05 ==
PROVIDERS: Emergency Provider Student in an Organized Health Care Education/Training Program; PCP Internal Medicine
DX: R45.851 Suicidal ideations (principal); F17.200 Nicotine dependence, unspecified, uncomplicated; I10 Essential (primary) hypertension; E11.9 Type 2 diabetes mellitus without complications; Z79.84 Long term (current) use of oral hypoglycemic drugs; Z79.82 Long term (current) use of aspirin
CPT/HCPCS: 36415; 80048; 80307; 81001; 82077; 85025; 87426; 99285

== ENCOUNTER 2020-11-23 14:10 | Emergency (ER) | payer MEDICAID, SELFPAY ==
[2020-11-23] VITALS (11 sets, daily range): BP systolic 138–152; BP diastolic 84–101; PULSE 93–131; RESP 12–22; TEMP 35.4–37.3; O2SAT 94–95; BMI 27.1
--- NOTE | 2020-11-23 14:24 | EKG12_ITS ---
Test Reason : SUICIDAL Blood Pressure : / mmHG Vent. Rate : 111 BPM Atrial Rate : 111 BPM P-R Int : 172 ms QRS Dur : 082 ms QT Int : 332 ms P-R-T Axes : 081 -60 072 degrees QTc Int : 451 ms Sinus tachycardia Leftward axis Left anterior fascicular block Poor R wave progression Abnormal ECG Confirmed by EMILIA CHRISTENSEN, BLANCA ([id number]), commissioning editor TESSA CRUZ ([id number]) on 11/29/2020 2:09:12 PM Referred By: RAKEL Confirmed By:BLANCA NIETO MD
--- NOTE | 2020-11-23 14:29 | ED.VIS.GEN ---
History of Present Illness Chief Complaint: Suicidal Informant: Patient Narrative: 55-year-old diabetic female with a history of schizophrenia presents with a chief complaint of suicidal ideation. Patient states that she feels hopeless. She states that she has no future. She states that she wants to jump in front of a semitruck or cut herself with a knife. She states that she has seen a psychiatrist but they are not available today. She denies any recent medication changes. She states she has been eating and drinking normally. She has no physical complaints. - Past Medical History (1) Diabetes Status: Chronic (2) Hypertension Status: Chronic (3) Schizophrenia Status: Chronic Past Medical History - Allergies and Home Meds Allergies/Adverse Reactions: Allergies lisinopril Allergy (Verified 11/23/20 14:13) Anaphylaxis lithium Allergy (Verified 11/23/20 14:13) Anaphylaxis risperidone [From Risperdal] Allergy (Verified 11/23/20 14:13) Anaphylaxis sertraline HCl [From Zoloft] Allergy (Verified 11/23/20 14:13) Anaphylaxis Primary Care Physician: Kiana Chavarria MD [Primary Care Provider] - Surgical History: cholecystectomy Smoking Status: Current every day smoker Alcohol: None Drugs: None - Family History Maternal Family History: Reports: Unknown Review of Systems General: Denies: Chills, Fever, Sweats Eyes: Denies: Visual changes - bilaterally, Diplopia ENT: Denies: Rhinorrhea, Sore throat Cardiovascular: Denies: Chest pain, Palpitations Respiratory: Denies: Dyspnea, Cough, Dyspnea on exertion Gastrointestinal: Denies: Abdominal pain, Nausea, Vomiting, Diarrhea, Melena, Hematochezia Genitourinary: Denies: Dysuria, Hematuria, Frequency Musculoskeletal: Denies: Back pain, Extremity Pain Skin: Denies: Rash, Wounds Neurological: Denies: Headache, Weakness, Numbness Psych: Reports: Depression, Suicidal thoughts, Suicidal ideations Physical Exam Vital Signs/Narrative: Vital Signs Temp Pulse Resp BP Pulse Ox 11/23/20 14:11 95.7 F L 131 H 16 151/101 H 95 Inital Vital Signs reviewed: Yes General: Well nourished, Well developed, No Acute Distress Head: Normocephalic, Atraumatic Eyes: Perrl, EOMI ENT: Moist mucous membranes, No rhinorrhea Neck: Supple, Nontender Cardiovascular: Regular rate, Regular rhythm, No murmurs Respiratory: No distress, CTA bilaterally, Chest nontender Abdomen: Soft, Nontender, Nondistended, Normal bowel sounds Back: Nontender, Normal Inspection Extremities: Nontender, No edema Skin: Normal color, No rash Neurological: Alert, Oriented x3, Cranial nerves II-XII grossly intact, Normal Strength, Normal Sensation Psychological: Depressed, Tearful, - - Patient admits to suicidal plan Diagnostic/Tx/Re-eval Laboratory Last Values WBC 6.4 K/mm3 (4.4-11.0) 11/23/20 14:45 RBC 4.63 M/mm3 (4.2-5.4) 11/23/20 14:45 Hgb 14.5 g/dL (12.0-15.0) 11/23/20 14:45 Hct 41.8 % (37-47) 11/23/20 14:45 MCV 90.3 fL (81-99) 11/23/20 14:45 MCH 31.3 pg (27.0-32.0) 11/23/20 14:45 MCHC 34.7 g/dL (32-36) 11/23/20 14:45 RDW Std Deviation 44.7 fl (35.1-43.9) H 11/23/20 14:45 RDW Coeff of [place] 13.6 % (11.6-14.6) 11/23/20 14:45 Plt Count 289 K/mm3 (150-450) 11/23/20 14:45 MPV 10.4 fl (6.2-12.0) 11/23/20 14:45 Immature Gran % (Auto) 0.200 % (0.0-0.9) 11/23/20 14:45 Neut % (Auto) 61.7 % (47-70) 11/23/20 14:45 Lymph % (Auto) 27.2 % (19-41) 11/23/20 14:45 [place] % (Auto) 9.2 % (0-10) 11/23/20 14:45 Eos % (Auto) 1.4 % (0-5) 11/23/20 14:45 Baso % (Auto) 0.3 % (0-1) 11/23/20 14:45 Absolute Neuts (auto) 4.0 X10^3/uL (2.0-7.7) 11/23/20 14:45 Absolute Lymphs (auto) 1.75 X10^3/uL (0.83-4.51) 11/23/20 14:45 Nucleated RBC % 0 % (0-5) 11/23/20 14:45 Sodium 138 mmol/L (136-145) 11/23/20 14:45 Potassium 3.4 mmol/L (3.5-5.1) L 11/23/20 14:45 Chloride 100 mmol/L (98-107) 11/23/20 14:45 Carbon Dioxide 30.0 mmol/L (21.0-32.0) 11/23/20 14:45 Anion Gap 8 (5-15) 11/23/20 14:45 BUN 15 mg/dL (7-18) 11/23/20 14:45 Creatinine 0.87 mg/dL (0.55-1.02) 11/23/20 14:45 Estim Creat Clear Calc 61.61 ml/min 11/23/20 14:45 Est GFR (MDRD) Af Amer 86 mL/min (>60) 11/23/20 14:45 Est GFR (MDRD) Non-Af 71 mL/min (>60) 11/23/20 14:45 BUN/Creatinine Ratio 17.3 RATIO (10-20) 11/23/20 14:45 Glucose 157 mg/dL (74-106) H 11/23/20 14:45 Calcium 9.8 mg/dL (8.5-10.1) 11/23/20 14:45 Total Bilirubin 0.50 mg/dL (0.20-1.00) 11/23/20 14:45 AST 11 U/L (15-37) L 11/23/20 14:45 ALT 23 U/L (13-56) 11/23/20 14:45 Alkaline Phosphatase 51 U/L (45-117) 11/23/20 14:45 Total Protein 8.0 g/dL (6.4-8.2) 11/23/20 14:45 Albumin 3.6 g/dL (3.2-5.0) 11/23/20 14:45 Globulin 4.4 g/dL (2.2-4.2) H 11/23/20 14:45 Albumin/Globulin Ratio 0.8 RATIO (0.9-2.4) L 11/23/20 14:45 TSH 1.44 uIU/mL (0.358-3.74) 11/23/20 14:45 Urine Color Yellow (Yellow) 11/23/20 14:56 Urine Clarity Clear (Clear) 11/23/20 14:56 Urine pH 7.0 (5.0 - 8.0) 11/23/20 14:56 Ur Specific [place] 1.015 (1.002-1.030) 11/23/20 14:56 Urine Protein 100 mg/dl (Negative) H 11/23/20 14:56 Urine Glucose (UA) Normal mg/dl (Normal) 11/23/20 14:56 Urine Ketones 5 mg/dl (Negative) H 11/23/20 14:56 Urine Occult Blood Negative /ul (Negative) 11/23/20 14:56 Urine Nitrite Negative (Negative) 11/23/20 14:56 Urine Bilirubin Negative mg/dL (Negative) 11/23/20 14:56 Urine Urobilinogen 1 mg/dl (Normal) H 11/23/20 14:56 Ur Leukocyte Esterase 100 /ul (Negative) H 11/23/20 14:56 Urine RBC 0 SEEN /hpf (0-5) 11/23/20 14:56 Urine WBC 0-5 SEEN /hpf (0-5) 11/23/20 14:56 Ur Squamous Epith Cells 0-5 SEEN /hpf (5-10) 11/23/20 14:56 Urine Bacteria RARE /hpf (None Seen) 11/23/20 14:56 Urine Mucus 0 SEEN /hpf (<or=2+) 11/23/20 14:56 Urine Opiates Screen NEGATIVE (< 300 ng/mL) 11/23/20 14:56 Urine Methadone Screen NEGATIVE (< 300 ng/mL) 11/23/20 14:56 Ur Barbiturates Screen NEGATIVE (< 200 ng/mL) 11/23/20 14:56 Valproic Acid 68 ug/mL (50-100) 11/23/20 14:45 Ur Phencyclidine Scrn NEGATIVE (< 25 ng/mL) 11/23/20 14:56 Ur Amphetamines Screen NEGATIVE (<1000 ng/mL) 11/23/20 14:56 U Methamphetamin-MDMA NEGATIVE (< 500 ng/mL) 11/23/20 14:56 U Benzodiazepines Scrn NEGATIVE (< 200 ng/mL) 11/23/20 14:56 Urine Cocaine Screen NEGATIVE (< 300 ng/mL) 11/23/20 14:56 U Cannabinoids Screen NEGATIVE (< 50 ng/mL) 11/23/20 14:56 Ur Drug Screen Comment 11/23/20 14:56 Ethyl Alcohol < 3.0 mg/dL 11/23/20 14:45 - EKG Initial EKG Interpretation: Sinus Tachycardia - EKG demonstrates a sinus tachycardia at a rate of 111. No concerning features of ACS or ectopy noted - Medical Decision Making Patient is medically cleared. COVID-19 negative. Social work will assist us in assessment and disposition of the patient. At 1815 hrs. I was informed the patient has been accepted to [facility] psychiatry. ED Disposition - Plan for ED Patient: Disposition: Psychiatric Hospital or Unit Diagnosis: Schizophrenia, Suicidal ideation, Depression Referrals: Kiana Chavarria MD [Primary Care Provider] -
[2020-11-23 14:54] LABS: Absolute Lymphocyte Count 1.75 X10^3/uL (0.83-4.51); Basophil# 0.02 X10^3/uL; Basophil% 0.3 % (0-1); Eosinophil# 0.09 X10^3/uL; Eosinophils% 1.4 % (0-5); Hematocrit 41.8 % (37-47); Hemoglobin 14.5 g/dL (12.0-15.0); Lymphocyte # 1.75 X10^3/ul (4.0); Lymphocyte % 27.2 % (19-41); Mean Corp Hgb Conc 34.7 g/dL (32-36); Mean Corpuscular Hgb 31.3 pg (27.0-32.0); Mean Corpuscular Volume 90.3 fL (81-99); Mean Platelet Vol. 10.4 fl (6.2-12.0); Monocyte# 0.59 X10^3/uL; Monocyte% 9.2 % (0-10); NRBC Flagged by Analyzer 0 % (0-5); Neutrophil # 3.97 X10^3/uL (2.7-7.7); Neutrophil % 61.7 % (47-70); Platelet Count 289 K/mm3 (150-450); RBC Distribution Width CV 13.6 % (11.6-14.6); RBC Distribution Width SD 44.7 fl (35.1-43.9); Red Blood Count 4.63 M/mm3 (4.2-5.4); White Blood Count 6.4 K/mm3 (4.4-11.0)
[2020-11-23 15:04] LABS: Mucous, Urine 0 SEEN /hpf (<or=2+); Red Blood Cells-Urine 0 SEEN /hpf (0-5)
[2020-11-23 15:07] LABS: Color, Urine Yellow (Yellow); Glucose, Dipstick Normal (Normal); Ketone-Dipstick 5 mg/dl (Negative); Leukocyte Esterase-Dipstick 100 /ul (Negative); Nitrite-Dipstick Negative (Negative); Occult Blood-Urine Negative /ul (Negative); Protein-Dipstick 100 mg/dl (Negative); Specific Gravity, Urine 1.015 (1.002-1.030); Urine Bilirubin Dipstick Negative (Negative); Urine Clarity Clear (Clear); Urine Urobilinogen 1 mg/dl (Normal)
[2020-11-23 15:13] LABS: Squamous Epithelial Cells - UA 0-5 SEEN /hpf (5-10); White Blood Cells 0-5 SEEN /hpf (0-5)
[2020-11-23 15:14] LABS: Bacteria RARE /hpf (None Seen)
[2020-11-23 15:15] LABS: ALB/GLOB Ratio 0.8 RATIO (0.9-2.4); AST(SGOT) 11 U/L (15-37); Alanine Aminotransfer ALT/SGPT 23 U/L (13-56); Albumin, Serum 3.6 g/dL (3.2-5.0); Alkaline Phosphatase 51 U/L (45-117); Anion Gap 8 (5-15); BUN 15 mg/dL (7-18); BUN/Creat Ratio 17.3 RATIO (10-20); Calcium,Total 9.8 mg/dL (8.5-10.1); Chloride 100 mmol/L (98-107); Creatinine, Serum 0.87 mg/dL (0.55-1.02); EST Glomerular Filtration Rate 71 mL/min (>60); Est Glom Filt Rate - Afr Amer 86 mL/min (>60); Estimated Creatinine Clearance 61.61 ml/min; Globulin 4.4 g/dL (2.2-4.2); Glucose 157 mg/dL (74-106); Potassium 3.4 mmol/L (3.5-5.1); Sodium Level 138 mmol/L (136-145); Thyroid Stim Hormone (TSH) 1.44 uIU/mL (0.358-3.74)
[2020-11-23 15:18] LABS: Amphetamine Urine VISTA NEGATIVE (<1000 ng/mL); Barbiturate Urine VISTA NEGATIVE (< 200 ng/mL); Benzodiazepine Urine VISTA NEGATIVE (< 200 ng/mL); Cocaine Urine VISTA NEGATIVE (< 300 ng/mL); Ecstacy Urine VISTA NEGATIVE (< 500 ng/mL); Methadone Urine VISTA NEGATIVE (< 300 ng/mL); PCP Urine VISTA NEGATIVE (< 25 ng/mL); THC Urine VISTA NEGATIVE (< 50 ng/mL); Vista UDS pH Range 6
[2020-11-23 15:23] LABS: Alcohol, Blood (Medical)-Serum < 3.0 mg/dL
[2020-11-23 15:30] LABS: Valproic Acid (Depakene) Level 68 ug/mL (50-100)
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
--- NOTE | 2020-11-23 15:55 | CM.ED ---
SOCIAL WORK Referral faxed and called to Lakia at [facility]. Pending acceptance at this time. Yesenia Horne, UI DEVELOPER, IP ATTORNEY
--- NOTE | 2020-11-23 17:00 | CM.ED ---
SOCIAL WORK Referral called and faxed to [facility]. Pending acceptance at this time.
--- NOTE | 2020-11-23 17:58 | CM.ED ---
SOCIAL WORK Call from Lakia with [facility]. Patient accepted by Dr. Tirado to the [facility]al Unit. Nurse to call report to . [employer] to set up transport. Patient and staff updated. Call to [facility] to update on patient's admission for continuity of care. Yesenia Horne, LEAD INSTRUCTOR/FLIGHT ATTENDANT, BOTTLE HOUSE QUALITY CONTROL TECHNICIAN
--- NOTE | 2020-11-23 18:09 | NURSING ---
CALLED [facility], ETA IS 2 TO 3 HRS
[2020-11-24] VITALS: BP 140/80; PULSE 90; RESP 20; O2SAT 98
== END 2020-11-24 00:50 ==
PROVIDERS: Emergency Provider Emergency Medicine; PCP Internal Medicine
DX: R45.851 Suicidal ideations (principal); F20.9 Schizophrenia, unspecified; F32.9 Major depressive disorder, single episode, unspecified; F17.200 Nicotine dependence, unspecified, uncomplicated; I10 Essential (primary) hypertension; E11.9 Type 2 diabetes mellitus without complications; Z79.84 Long term (current) use of oral hypoglycemic drugs; Z79.82 Long term (current) use of aspirin; Z79.899 Other long term (current) drug therapy
CPT/HCPCS: 80053; 80164; 80307; 81001; 82077; 84443; 85025; 87426; 93005; 99285

== ENCOUNTER 2020-12-01 18:52 | Emergency (ER) | payer MEDICAID, SELFPAY ==
[2020-11-23 14:11] VITALS: BMI 27.1
[2020-12-01 18:53] VITALS: BP 149/100; PULSE 112; RESP 19; TEMP 37.8; O2SAT 95; BMI 27.8
[2020-12-01 19:36] VITALS: RESP 19
--- NOTE | 2020-12-01 19:46 | ED.VISSUMM ---
- ER Visit Summary Date of Service: 12/01/20 Chief Complaint: Suicidal ideation History of Present Illness: The patient is a 55 F who presents with suicidal ideation that has been getting worse since yesterday. Patient states she is hearing voices that are telling her to jump off of a roof. Patient states that she has thoughts of jumping off of the roof. Patient states nothing makes her symptoms better or worse. Patient states she does have a history of depression. Patient denies any chest pain or shortness of breath. Patient denies any headaches. Patient denies any fevers or chills. Patient also has a history of diabetes. Physical Examination: Vital signs are stable. Patient is afebrile. Patient is in no acute distress. Oral mucosa is pink and moist. Neck is supple. Trachea is midline. There is no JVD noted. Heart was regular rate and rhythm. Lungs are clear and equal bilaterally. Abdomen is soft. Bowel sounds are normal. There is no tenderness. There is no rebound or guarding noted. Skin is warm dry. Cranial nerves II through XII are intact. There are no focal motor or sensory deficits noted. Extremities are intact. There is no calf tenderness or edema. Patient admits to auditory hallucinations. Patient admits to suicidal thoughts. Test Results: CBC, comprehensive metabolic profile, and urinalysis were obtained and were essentially within normal limits. Urine tox urine was negative. Serum alcohol level was negative. Emergency Department Course and Treatment: Patient is medically cleared for psychiatric evaluation. Disposition: Pending per crisis evaluation Impression: 1. Suicidal ideation 2. Auditory hallucinations This note was generated with [employer] dictation software. It may contain incorrect words, spelling, and punctuation that were not noted in review of the chart prior to signing ED Disposition - Plan for ED Patient: Referrals: Kiana Chavarria MD [Primary Care Provider] -
[2020-12-01 19:54] LABS: Amphetamine Urine VISTA NEGATIVE (<1000 ng/mL); Barbiturate Urine VISTA NEGATIVE (< 200 ng/mL); Benzodiazepine Urine VISTA NEGATIVE (< 200 ng/mL); Cocaine Urine VISTA NEGATIVE (< 300 ng/mL); Ecstacy Urine VISTA NEGATIVE (< 500 ng/mL); Methadone Urine VISTA NEGATIVE (< 300 ng/mL); PCP Urine VISTA NEGATIVE (< 25 ng/mL); THC Urine VISTA NEGATIVE (< 50 ng/mL); Vista UDS pH Range 7
[2020-12-01 20:00] VITALS: RESP 17
[2020-12-01 20:01] LABS: Absolute Lymphocyte Count 2.27 X10^3/uL (0.83-4.51); Basophil# 0.03 X10^3/uL; Basophil% 0.5 % (0-1); Eosinophils% 1.6 % (0-5); Hematocrit 40.5 % (37-47); Lymphocyte # 2.27 X10^3/ul (4.0); Lymphocyte % 36.5 % (19-41); Mean Corp Hgb Conc 34.6 g/dL (32-36); Mean Corpuscular Hgb 31.1 pg (27.0-32.0); Mean Platelet Vol. 10.4 fl (6.2-12.0); Monocyte# 0.82 X10^3/uL; Monocyte% 13.2 % (0-10); NRBC Flagged by Analyzer 0 % (0-5); Neutrophil # 2.97 X10^3/uL (2.7-7.7); Neutrophil % 47.7 % (47-70); Platelet Count 249 K/mm3 (150-450); RBC Distribution Width SD 43.1 fl (35.1-43.9); White Blood Count 6.2 K/mm3 (4.4-11.0)
[2020-12-01 20:24] LABS: Bacteria 0 SEEN /hpf (None Seen); Mucous, Urine 0 SEEN /hpf (<or=2+); Red Blood Cells-Urine 0 SEEN /hpf (0-5)
[2020-12-01 20:27] LABS: Color, Urine Yellow (Yellow); Glucose, Dipstick Normal (Normal); Ketone-Dipstick Negative (Negative); Leukocyte Esterase-Dipstick 100 /ul (Negative); Nitrite-Dipstick Negative (Negative); Occult Blood-Urine Negative /ul (Negative); Protein-Dipstick 30 mg/dl (Negative); Urine Bilirubin Dipstick Negative (Negative); Urine Clarity Clear (Clear); Urine Urobilinogen Normal (Normal)
[2020-12-01 20:33] LABS: Squamous Epithelial Cells - UA 0-5 SEEN /hpf (5-10); White Blood Cells 0-5 SEEN /hpf (0-5)
[2020-12-01 20:34] LABS: ALB/GLOB Ratio 0.9 RATIO (0.9-2.4); AST(SGOT) 8 U/L (15-37); Alanine Aminotransfer ALT/SGPT 19 U/L (13-56); Albumin, Serum 3.7 g/dL (3.2-5.0); Alkaline Phosphatase 54 U/L (45-117); Anion Gap 8 (5-15); BUN 12 mg/dL (7-18); BUN/Creat Ratio 18.9 RATIO (10-20); Calcium,Total 10.6 mg/dL (8.5-10.1); Chloride 95 mmol/L (98-107); Creatinine, Serum 0.64 mg/dL (0.55-1.02); EST Glomerular Filtration Rate 102 mL/min (>60); Est Glom Filt Rate - Afr Amer 124 mL/min (>60); Estimated Creatinine Clearance 83.75 ml/min; Globulin 4.3 g/dL (2.2-4.2); Glucose 123 mg/dL (74-106); Potassium 3.7 mmol/L (3.5-5.1); Sodium Level 133 mmol/L (136-145)
[2020-12-01 21:00] VITALS: RESP 19
[2020-12-01 23:44] VITALS: BP 143/85; PULSE 85; RESP 14; TEMP 36.9; O2SAT 93
[2020-12-02] VITALS (8 sets, daily range): BP systolic 130; BP diastolic 78–80; PULSE 78–98; RESP 17–18; TEMP 36.6–36.8; O2SAT 94–98
== END 2020-12-02 05:25 ==
LOC: ED 19:24
PROVIDERS: Emergency Provider Emergency Medicine; PCP Internal Medicine
DX: R45.851 Suicidal ideations (principal); R44.0 Auditory hallucinations; F17.200 Nicotine dependence, unspecified, uncomplicated
CPT/HCPCS: 80053; 80307; 81001; 82077; 85025; 99285

== ENCOUNTER 2020-12-28 09:42 | Emergency (ER) | payer MEDICAID, SELFPAY ==
[2020-12-28 09:43] VITALS: BP 162/92; PULSE 89; RESP 16; TEMP 36.9; O2SAT 96; BMI 27.9
--- NOTE | 2020-12-28 10:01 | ED.DCSUM_ITS ---
History of Present Illness Chief Complaint: Suicidal Informant: Patient Onset: Yesterday Narrative: Patient presents from retirement increasing auditory hallucinations and suicidal thoughts since yesterday. History of schizophrenia, currently on duloxetine, doxepin, Depakote states she is hearing demonic voices telling her to hurt her self. Reporting telling her to jump off a roof or bridge. She states she is having these thoughts, she states she last hurt her self in 2000 with overdose on medications. Denies homicidal ideations. Denies visual elucidation's. Denies alcohol or illicit drug use history. States she was hospitalized [place] last month for similar symptoms. States she was started on Zyprexa, however she follow-up with her psychiatrist Dr. Salmeron who took her off medications. She states those medications were helping. No other complaints at this time. Prior similar symptoms: Yes Past Medical History - Allergies and Home Meds Allergies/Adverse Reactions: Allergies lisinopril Allergy (Verified 12/28/20 09:43) Anaphylaxis lithium Allergy (Verified 12/28/20 09:43) Anaphylaxis risperidone [From Risperdal] Allergy (Verified 12/28/20 09:43) Anaphylaxis sertraline HCl [From Zoloft] Allergy (Verified 12/28/20 09:43) Anaphylaxis Primary Care Physician: Kiana Chavarria MD [Primary Care Provider] - Past Medical History: - - Hypertension, diabetes, schizophrenia Surgical History: cholecystectomy Smoking Status: Current every day smoker - Family History Maternal Family History: Reports: Unknown Review of Systems General: Denies: Chills, Fever, Sweats Eyes: Denies: Visual changes - bilaterally, Diplopia ENT: Denies: Rhinorrhea, Sore throat Cardiovascular: Denies: Chest pain, Palpitations Respiratory: Denies: Dyspnea, Cough, Dyspnea on exertion Gastrointestinal: Denies: Abdominal pain, Nausea, Vomiting, Diarrhea, Melena, Hematochezia Genitourinary: Denies: Dysuria, Hematuria, Frequency Musculoskeletal: Denies: Back pain, Extremity Pain Skin: Denies: Rash, Wounds Neurological: Denies: Headache, Weakness, Numbness Psych: Reports: Suicidal thoughts, Suicidal ideations, - - Auditory hallucinations Physical Exam Vital Signs/Narrative: Vital Signs Temp Pulse Resp BP Pulse Ox 12/28/20 09:43 98.5 F 89 16 162/92 H 96 Inital Vital Signs reviewed: Yes General: Well nourished, Well developed, No Acute Distress, - - Cooperative Head: Normocephalic, Atraumatic Eyes: Perrl, EOMI ENT: Moist mucous membranes, No rhinorrhea Neck: Supple, Nontender Cardiovascular: Regular rate, Regular rhythm, No murmurs Respiratory: No distress, CTA bilaterally, Chest nontender Abdomen: Soft, Nontender, Nondistended, Normal bowel sounds Back: Nontender, Normal Inspection Extremities: Nontender, No edema Skin: Normal color, No rash Neurological: Alert, Oriented x3, Cranial nerves II-XII grossly intact, Normal Strength, Normal Sensation Psychological: - - Slight flat affect, cooperative, admits to suicidal ideations and auditory hallucinations Diagnostic/Tx/Re-eval Abnormal Lab Results 12/28/20 12/28/20 12/28/20 10:12 10:12 10:12 WBC 6.7 RBC 4.63 Hgb 14.5 Hct 42.4 MCV 91.6 MCH 31.3 MCHC 34.2 RDW Std Deviation 44.7 H RDW Coeff of [place] 13.2 Plt Count 258 MPV 10.5 Immature Gran % (Auto) 0.100 Neut % (Auto) 60.5 Lymph % (Auto) 27.5 [place] % (Auto) 10.6 H Eos % (Auto) 1.0 Baso % (Auto) 0.3 Absolute Neuts (auto) 4.1 Absolute Lymphs (auto) 1.85 Nucleated RBC % 0 Sodium 137 Potassium 3.8 Chloride 105 Carbon Dioxide 29.0 Anion Gap 3 L BUN 6 L Creatinine 0.62 Estim Creat Clear Calc 86.45 Est GFR (MDRD) Af Amer 128 Est GFR (MDRD) Non-Af 106 BUN/Creatinine Ratio 9.7 L Glucose 130 H Calcium 10.0 Urine Opiates Screen Urine Methadone Screen Ur Barbiturates Screen Valproic Acid Ur Phencyclidine Scrn Ur Amphetamines Screen U Methamphetamin-MDMA U Benzodiazepines Scrn Urine Cocaine Screen U Cannabinoids Screen Ur Drug Screen Comment Ethyl Alcohol < 3.0 12/28/20 12/28/20 10:12 10:16 WBC RBC Hgb Hct MCV MCH MCHC RDW Std Deviation RDW Coeff of [place] Plt Count MPV Immature Gran % (Auto) Neut % (Auto) Lymph % (Auto) [place] % (Auto) Eos % (Auto) Baso % (Auto) Absolute Neuts (auto) Absolute Lymphs (auto) Nucleated RBC % Sodium Potassium Chloride Carbon Dioxide Anion Gap BUN Creatinine Estim Creat Clear Calc Est GFR (MDRD) Af Amer Est GFR (MDRD) Non-Af BUN/Creatinine Ratio Glucose Calcium Urine Opiates Screen NEGATIVE Urine Methadone Screen NEGATIVE Ur Barbiturates Screen NEGATIVE Valproic Acid 50 Ur Phencyclidine Scrn NEGATIVE Ur Amphetamines Screen NEGATIVE U Methamphetamin-MDMA NEGATIVE U Benzodiazepines Scrn NEGATIVE Urine Cocaine Screen NEGATIVE U Cannabinoids Screen NEGATIVE Ur Drug Screen Comment Ethyl Alcohol - Medical Decision Making Patient cooperative, admits to suicidal ideations with auditory hallucinations and voices telling her to hurt herself. Laboratory work obtained for medical clearance, results return. She is medically cleared. Will have crisis evaluation in the ED for disposition. 1415: Patient evaluated by crisis, after discussion she is more stable she denies suicidal ideations. She has good follow-up and close monitoring back at the facility. Is confirmed that she is currently on Zyprexa from her last hospitalization. They have plans of getting the patient into her psychiatrist to reevaluate up her Zyprexa as an outpatient as needed. Patient okay with the plan. She has been clinically cooperative. Do feel she is safe for discharge and agreement with crisis. ED Disposition - Plan for ED Patient: Disposition: Home or Assisted Living Diagnosis: Suicidal ideation, History of schizophrenia Instructions: ED Schizophrenia, General Referrals: Alicia Salazar MD [NON-STAFF] - Additional Instructions: Follow with Dr. Salazar for medication adjustment.
[2020-12-28 10:28] LABS: Absolute Lymphocyte Count 1.85 X10^3/uL (0.83-4.51); Absolute Neutrophil Count 4.1 X10^3/uL (2.0-7.7); Basophil# 0.02 X10^3/uL; Basophil% 0.3 % (0-1); Eosinophil# 0.07 X10^3/uL; Hematocrit 42.4 % (37-47); Hemoglobin 14.5 g/dL (12.0-15.0); Lymphocyte # 1.85 X10^3/ul (4.0); Lymphocyte % 27.5 % (19-41); Mean Corp Hgb Conc 34.2 g/dL (32-36); Mean Corpuscular Hgb 31.3 pg (27.0-32.0); Mean Corpuscular Volume 91.6 fL (81-99); Mean Platelet Vol. 10.5 fl (6.2-12.0); Monocyte# 0.71 X10^3/uL; Monocyte% 10.6 % (0-10); NRBC Flagged by Analyzer 0 % (0-5); Neutrophil # 4.06 X10^3/uL (2.7-7.7); Neutrophil % 60.5 % (47-70); Platelet Count 258 K/mm3 (150-450); RBC Distribution Width CV 13.2 % (11.6-14.6); RBC Distribution Width SD 44.7 fl (35.1-43.9); Red Blood Count 4.63 M/mm3 (4.2-5.4); White Blood Count 6.7 K/mm3 (4.4-11.0)
[2020-12-28 10:39] LABS: Anion Gap 3 (5-15); BUN 6 mg/dL (7-18); BUN/Creat Ratio 9.7 RATIO (10-20); Chloride 105 mmol/L (98-107); Creatinine, Serum 0.62 mg/dL (0.55-1.02); EST Glomerular Filtration Rate 106 mL/min (>60); Est Glom Filt Rate - Afr Amer 128 mL/min (>60); Estimated Creatinine Clearance 86.45 ml/min; Glucose 130 mg/dL (74-106); Potassium 3.8 mmol/L (3.5-5.1); Sodium Level 137 mmol/L (136-145)
[2020-12-28 10:39] LABS: Amphetamine Urine VISTA NEGATIVE (<1000 ng/mL); Barbiturate Urine VISTA NEGATIVE (< 200 ng/mL); Benzodiazepine Urine VISTA NEGATIVE (< 200 ng/mL); Cocaine Urine VISTA NEGATIVE (< 300 ng/mL); Ecstacy Urine VISTA NEGATIVE (< 500 ng/mL); Methadone Urine VISTA NEGATIVE (< 300 ng/mL); PCP Urine VISTA NEGATIVE (< 25 ng/mL); THC Urine VISTA NEGATIVE (< 50 ng/mL); Vista UDS pH Range 6
[2020-12-28 10:43] VITALS: RESP 16
[2020-12-28 11:00] VITALS: RESP 16
[2020-12-28 11:07] LABS: Alcohol, Blood (Medical)-Serum < 3.0 mg/dL
[2020-12-28 11:19] LABS: Valproic Acid (Depakene) Level 50 ug/mL (50-100)
[2020-12-28 12:00] VITALS: RESP 16
--- NOTE | 2020-12-28 12:07 | ED.RN ---
THIS RN CALLED [facility] FOR UPDATED MEDICATION LIST. NURSE PHIL STATED THEY DO NOT HAVE AT THIS TIME BUT WILL CALL BACK ONCE THEY HAVE CORRECT MEDICATION LIST.
[2020-12-28 14:34] VITALS: BP 131/82; PULSE 81; RESP 18; O2SAT 98
== END 2020-12-28 14:34 | disposition home or self-care (01) ==
PROVIDERS: Emergency Provider Emergency Medicine; PCP Internal Medicine
DX: R45.851 Suicidal ideations (principal); F20.9 Schizophrenia, unspecified; I10 Essential (primary) hypertension; E11.9 Type 2 diabetes mellitus without complications; F17.200 Nicotine dependence, unspecified, uncomplicated; Z79.82 Long term (current) use of aspirin; Z79.84 Long term (current) use of oral hypoglycemic drugs; Z79.899 Other long term (current) drug therapy
CPT/HCPCS: 36415; 80048; 80164; 80307; 82077; 85025; 99282

== ENCOUNTER 2021-01-04 20:26 | Emergency (ER) | payer MEDICAID, SELFPAY ==
[2021-01-04 20:27] VITALS: BP 152/96; PULSE 100; RESP 18; TEMP 36.7; O2SAT 97; BMI 28.1
[2021-01-04 21:00] LABS: Absolute Neutrophil Count 2.3 X10^3/uL (2.0-7.7); Basophil# 0.03 X10^3/uL; Basophil% 0.5 % (0-1); Eosinophil# 0.08 X10^3/uL; Eosinophils% 1.4 % (0-5); Hematocrit 40.7 % (37-47); Hemoglobin 14.1 g/dL (12.0-15.0); Lymphocyte % 44.4 % (19-41); Mean Corp Hgb Conc 34.6 g/dL (32-36); Mean Corpuscular Hgb 31.2 pg (27.0-32.0); Mean Platelet Vol. 10.2 fl (6.2-12.0); Monocyte# 0.81 X10^3/uL; Monocyte% 13.8 % (0-10); NRBC Flagged by Analyzer 0 % (0-5); Neutrophil # 2.32 X10^3/uL (2.7-7.7); Neutrophil % 39.7 % (47-70); Platelet Count 310 K/mm3 (150-450); RBC Distribution Width CV 12.8 % (11.6-14.6); RBC Distribution Width SD 42.4 fl (35.1-43.9); Red Blood Count 4.52 M/mm3 (4.2-5.4); White Blood Count 5.9 K/mm3 (4.4-11.0)
[2021-01-04 21:19] LABS: Anion Gap 5 (5-15); BUN 12 mg/dL (7-18); BUN/Creat Ratio 17.3 RATIO (10-20); Calcium,Total 9.4 mg/dL (8.5-10.1); Chloride 101 mmol/L (98-107); Creatinine, Serum 0.69 mg/dL (0.55-1.02); EST Glomerular Filtration Rate 92 mL/min (>60); Est Glom Filt Rate - Afr Amer 112 mL/min (>60); Estimated Creatinine Clearance 77.68 ml/min; Glucose 164 mg/dL (74-106); Potassium 3.5 mmol/L (3.5-5.1); Sodium Level 134 mmol/L (136-145)
[2021-01-04 21:26] LABS: Amphetamine Urine VISTA NEGATIVE (<1000 ng/mL); Barbiturate Urine VISTA NEGATIVE (< 200 ng/mL); Benzodiazepine Urine VISTA NEGATIVE (< 200 ng/mL); Cocaine Urine VISTA NEGATIVE (< 300 ng/mL); Ecstacy Urine VISTA NEGATIVE (< 500 ng/mL); Methadone Urine VISTA NEGATIVE (< 300 ng/mL); PCP Urine VISTA NEGATIVE (< 25 ng/mL); THC Urine VISTA NEGATIVE (< 50 ng/mL); Vista UDS pH Range 6
--- NOTE | 2021-01-04 21:36 | ED.VIS.PSYCH ---
History of Present Illness Chief Complaint: Suicidal Informant: Patient Onset: Weeks - worse last 2 days Context: Gradual Onset Conflict: - - command auditory hallucinations Current Severity: Severe Maximum Severity: Severe Relieved by: nothing. states she is taking her medications. Associated Symptoms: Suicidal Thoughts, Paranoia, Auditory Hallucinations Specific plan (suicidal thought): almost did what the voices saying Narrative: Patient has a history of schizophrenia, states she has been compliant with her medications, she has been hearing more voices than usual states her medicines do not seem to be working, and in the last couple days they have been telling her to kill herself. Today, they told her to put her hand in a garbage disposal to kill her self and she states I almost did it while the disposal was running. She denies any recent illness or injury. - Past Medical History (1) Diabetes Status: Chronic (2) Hypertension Status: Chronic (3) Mental deficiency Status: Chronic (4) Mood disorder Status: Chronic (5) Schizophrenia Status: Chronic Past Medical History - Allergies and Home Meds Allergies/Adverse Reactions: Allergies lisinopril Allergy (Verified 01/04/21 21:27) Anaphylaxis lithium Allergy (Verified 01/04/21 21:27) Anaphylaxis risperidone [From Risperdal] Allergy (Verified 01/04/21 21:27) Anaphylaxis sertraline HCl [From Zoloft] Allergy (Verified 01/04/21 21:27) Anaphylaxis Primary Care Physician: Kiana Chavarria MD [Primary Care Provider] - Surgical History: cholecystectomy Smoking Status: Current every day smoker Drugs: None - Family History Maternal Family History: Reports: Unknown Review of Systems General: Denies: Chills, Fever, Sweats Eyes: Denies: Visual changes - bilaterally, Diplopia ENT: Denies: Rhinorrhea, Sore throat Cardiovascular: Denies: Chest pain, Palpitations Respiratory: Denies: Dyspnea, Cough, Dyspnea on exertion Gastrointestinal: Denies: Abdominal pain, Nausea, Vomiting, Diarrhea, Melena, Hematochezia Genitourinary: Denies: Dysuria, Hematuria, Frequency Musculoskeletal: Denies: Back pain, Extremity Pain Skin: Denies: Rash, Wounds Neurological: Denies: Headache, Weakness, Numbness Psych: Reports: Suicidal thoughts, Suicidal ideations, - - Auditory hallucinations. Endocrine: Denies: Polyuria, Polydipsia Physical Exam Vital Signs/Narrative: Vital Signs Temp Pulse Resp BP Pulse Ox 01/04/21 20:27 98.1 F 100 18 152/96 H 97 Inital Vital Signs reviewed: Yes General: Well nourished, Well developed, - - NAD. cooperative. Head: Normocephalic, Atraumatic Eyes: Perrl, EOMI ENT: Moist mucous membranes, No rhinorrhea Neck: Supple, Nontender, No lymphadenopathy, - - no thyromegaly Cardiovascular: Regular rate, Regular rhythm, No murmurs. Negative for: Tachycardia Respiratory: No distress, CTA bilaterally, Chest nontender Abdomen: Soft, Nontender, Normal bowel sounds, - - protuberant abd, soft Back: Nontender, Normal Inspection Extremities: Nontender, No Edema. Negative for: Edema Skin: Normal color, No rash, No Trauma Neurological: Alert, Oriented x3, Cranial nerves II-XII grossly intact, Normal Strength, Normal Sensation Psych: Normal Speech Pattern, Normal Stable Appropriate Affect, Suicidal thoughts, Limited Insight, Poor Judgement Diagnostic/Tx/Re-eval Laboratory Results 01/04/21 01/04/21 01/04/21 20:45 20:45 20:45 WBC 5.9 RBC 4.52 Hgb 14.1 Hct 40.7 MCV 90.0 MCH 31.2 MCHC 34.6 RDW Std Deviation 42.4 RDW Coeff of [place] 12.8 Plt Count 310 MPV 10.2 Immature Gran % (Auto) 0.200 Neut % (Auto) 39.7 L Lymph % (Auto) 44.4 H [place] % (Auto) 13.8 H Eos % (Auto) 1.4 Baso % (Auto) 0.5 Absolute Neuts (auto) 2.3 Absolute Lymphs (auto) 2.60 Nucleated RBC % 0 Sodium 134 L Potassium 3.5 Chloride 101 Carbon Dioxide 28.0 Anion Gap 5 BUN 12 Creatinine 0.69 Estim Creat Clear Calc 77.68 Est GFR (MDRD) Af Amer 112 Est GFR (MDRD) Non-Af 92 BUN/Creatinine Ratio 17.3 Glucose 164 H Calcium 9.4 Urine Opiates Screen Urine Methadone Screen Ur Barbiturates Screen Ur Phencyclidine Scrn Ur Amphetamines Screen U Methamphetamin-MDMA U Benzodiazepines Scrn Urine Cocaine Screen U Cannabinoids Screen Ur Drug Screen Comment Ethyl Alcohol 8.0 01/04/21 20:45 WBC RBC Hgb Hct MCV MCH MCHC RDW Std Deviation RDW Coeff of [place] Plt Count MPV Immature Gran % (Auto) Neut % (Auto) Lymph % (Auto) [place] % (Auto) Eos % (Auto) Baso % (Auto) Absolute Neuts (auto) Absolute Lymphs (auto) Nucleated RBC % Sodium Potassium Chloride Carbon Dioxide Anion Gap BUN Creatinine Estim Creat Clear Calc Est GFR (MDRD) Af Amer Est GFR (MDRD) Non-Af BUN/Creatinine Ratio Glucose Calcium Urine Opiates Screen NEGATIVE Urine Methadone Screen NEGATIVE Ur Barbiturates Screen NEGATIVE Ur Phencyclidine Scrn NEGATIVE Ur Amphetamines Screen NEGATIVE U Methamphetamin-MDMA NEGATIVE U Benzodiazepines Scrn NEGATIVE Urine Cocaine Screen NEGATIVE U Cannabinoids Screen NEGATIVE Ur Drug Screen Comment Ethyl Alcohol Labs obtained, unremarkable, toxicology negative. Patient is medically cleared for crisis evaluation for psychiatric placement. Discussed with crisis, she was accepted at [facility] and will be transferred there. She remained cooperative and stable while in the emergency department. We did the required rapid Covid antigen test for transfer, which was negative. ED Disposition - Plan for ED Patient: Disposition: Psychiatric Hospital or Unit Diagnosis: Suicidal ideation, Schizophrenia, Psychosis Referrals: Kiana Chavarria MD [Primary Care Provider] -
[2021-01-04 22:17] VITALS: RESP 20
[2021-01-04 23:39] VITALS: RESP 18
[2021-01-05 01:45] VITALS: BP 138/87; PULSE 79; RESP 18; TEMP 36.6; O2SAT 98
[2021-01-05 02:23] VITALS: RESP 16
[2021-01-05 03:05] VITALS: RESP 17
== END 2021-01-05 03:46 ==
PROVIDERS: Emergency Provider Emergency Medicine; PCP Internal Medicine
DX: R45.851 Suicidal ideations (principal); F20.9 Schizophrenia, unspecified; F29 Unspecified psychosis not due to a substance or known physiological condition; I10 Essential (primary) hypertension; E11.9 Type 2 diabetes mellitus without complications; F17.200 Nicotine dependence, unspecified, uncomplicated; Z79.84 Long term (current) use of oral hypoglycemic drugs; Z79.82 Long term (current) use of aspirin; Z79.899 Other long term (current) drug therapy
CPT/HCPCS: 36415; 80048; 80307; 82077; 85025; 87426; 99285

== ENCOUNTER 2021-01-10 14:28 | Emergency (ER) | payer MEDICAID, SELFPAY ==
[2021-01-10 14:33] VITALS: BP 159/95; PULSE 101; RESP 18; TEMP 36.8; O2SAT 97; BMI 28.8
--- NOTE | 2021-01-10 14:50 | ED.VIS.GEN ---
History of Present Illness Chief Complaint: General Illness Informant: Patient, - - Seen facility Onset: - - Unknown Context: - - Patient apparently did not get her morning doses since the meds were changed. Timing: - - Planes of tingling Quality: Tingling that is perioral Location: Perioral Current Severity: Mild Maximum Severity: Mild Worsened by: Nothing Relieved by: Nothing Associated Symptoms: No other symptoms Narrative: Patient is a 55-year-old woman with history of psychiatric disorder who was recently admitted to a psychiatric facility and discharged on Sunday. She did not receive any of her p.m. Sunday doses or a.m. Sunday doses. Patient is not a good informant. Her only complaint is perioral numbness. She denies headache. She denies visual, ocular auditory symptoms. Denies runny nose, congestion postnasal drainage. She denies sore throat. She denies chest discomfort shortness of breath difficulty breathing or cough. She denies abdominal pain, nausea, vomiting or diarrhea. She denies dysuria, frequency, urgency or hematuria. She denies problems with coordination. She denies orthostatic symptoms. Prior similar symptoms: No Recent Illness/Hospitalization: Yes - Past Medical History (1) Angioedema Status: Acute (2) Diabetes Status: Chronic (3) Hypertension Status: Chronic (4) Mental deficiency Status: Chronic (5) Mood disorder Status: Chronic (6) Schizophrenia Status: Chronic Past Medical History - Allergies and Home Meds Allergies/Adverse Reactions: Allergies lisinopril Allergy (Verified 01/10/21 14:31) Anaphylaxis lithium Allergy (Verified 01/10/21 14:31) Anaphylaxis risperidone [From Risperdal] Allergy (Verified 01/10/21 14:31) Anaphylaxis sertraline HCl [From Zoloft] Allergy (Verified 01/10/21 14:31) Anaphylaxis Primary Care Physician: Kiana Chavarria MD [Primary Care Provider] - Prior records reviewed: Yes Surgical History: cholecystectomy [place]: [place] Smoking Status: Never smoker Alcohol: None Drugs: None - Family History Maternal Family History: Reports: Unknown Review of Systems General: Denies: Chills, Fever, Malaise, Subjective Eyes: Denies: Visual changes - bilaterally, Blurred Vision - bilaterally ENT: Denies: Rhinorrhea, Sore throat Cardiovascular: Denies: Chest pain, Palpitations Respiratory: Denies: Dyspnea, Cough, Dyspnea on exertion Gastrointestinal: Denies: Abdominal pain, Nausea, Vomiting, Diarrhea Genitourinary: Denies: Dysuria, Hematuria, Frequency Musculoskeletal: Denies: Myalgias, Arthralgias, Neck pain, Back pain, Swelling, Extremity Pain, -, - Skin: Denies: Rash, Wounds Neurological: Reports: Parasthesia - Perioral. Denies: Headache, Weakness, Numbness Psych: Reports: Depression, Anxiety Hematologic: Denies: Easy bruising, Easy bleeding Physical Exam Vital Signs/Narrative: Vital Signs Temp Pulse Resp BP Pulse Ox 01/10/21 14:33 98.2 F 101 H 18 159/95 H 97 Inital Vital Signs reviewed: Yes General: Well nourished, Well developed, Obese, No Acute Distress Head: Normocephalic, Atraumatic Eyes: Perrl, EOMI ENT: Moist mucous membranes, No rhinorrhea Neck: Supple, Nontender Cardiovascular: Regular rate, Regular rhythm, No murmurs Respiratory: No distress, CTA bilaterally, Chest nontender Abdomen: Soft, Nontender, Nondistended, Normal bowel sounds Back: Nontender, Normal Inspection Extremities: Nontender, No edema Skin: Normal color, No rash Neurological: Alert, Oriented x3, Cranial nerves II-XII grossly intact, Normal Strength, Normal Sensation Psychological: - - Affect is flat and mood is restrictive Diagnostic/Tx/Re-eval - Medical Decision Making She was given a dose of doxepin, Wellbutrin and Depakote. Since she is not having allergic reaction she was discharged back to the facility she came from. ED Disposition - Plan for ED Patient: Disposition: Home or Assisted Living Diagnosis: Perioral numbness, Medication administered Instructions: ED Paraesthesias Referrals: Kiana Chavarria MD [Primary Care Provider] - As Needed
--- NOTE | 2021-01-10 15:08 | ED.RN ---
THIS NURSE CALLED THE FACILITY AT [phone] AND SPOKE WITH THE NURSE TAKING CARE OF THE PT, THE FACILITY SAID THE PT WAS TAKEN OFF DEPAKOTE, DULOXETINE, AND WELLBUTRIN AND THAT THE FACILITY WOULDN'T KNOW WHAT NEW MEDICATIONS THE PT WOULD BE ON UNTIL THE PHARMACY FILLED THE PT'S SCRIPT. THE FACILITY STATED THE SCRIPT WOULD BE PICKED UP THIS EVENING AND THE NEW MEDIATIONS WOULD BE GIVEN THEN. DR. WHEAT MADE AWARE THAT THE PT MEDICATIONS WERE CANCELLED BY THE [facility]. PER DR WHEAT NOT TO GIVE THE MEDS HE ORDERED HERE. PER DR. WHEAT PT TO BE D/C BACK TO THE [facility] AND RECEIVE HER NEW MEDICATIONS THERE. [facility] SAID THEY WOULD ARRANGE TRANSPORT. THIS NURSE EXPLAINED EVERYTHING TO THE PT, PT VERBALIZED UNDERSTANDING OF D/C INSTRUCTIONS. PT D/C.
[2021-01-10 15:16] VITALS: RESP 17
== END 2021-01-10 15:17 | disposition home or self-care (01) ==
PROVIDERS: Emergency Provider Emergency Medicine; PCP Internal Medicine
DX: R20.0 Anesthesia of skin (principal); E66.9 Obesity, unspecified; I10 Essential (primary) hypertension; E11.9 Type 2 diabetes mellitus without complications; F20.9 Schizophrenia, unspecified; Z68.28 Body mass index [BMI] 28.0-28.9, adult; Z79.82 Long term (current) use of aspirin; Z79.84 Long term (current) use of oral hypoglycemic drugs; Z79.899 Other long term (current) drug therapy
CPT/HCPCS: 99282

== ENCOUNTER 2021-05-21 09:54 | Emergency (ER) | payer MEDICAID, SELFPAY ==
[2021-05-21] VITALS (8 sets, daily range): BP systolic 130–138; BP diastolic 85–88; PULSE 73–80; RESP 15–18; TEMP 36.7; O2SAT 97–98; BMI 27.6
--- NOTE | 2021-05-21 10:48 | EDS_ITS ---
HPI History of Present Illness Chief Complaint: Suicidal Informant: patient Narrative Narrative: Patient presents with suicidal thoughts. She had thoughts of putting her hands in a fur blender, cutting herself or taking pills. She has evidently tried overdosing and cutting herself in the past. She states her last admission was 4 months ago but she is not sure how long she was in the hospital. She just saw her psychiatrist yesterday but did not mention her suicidal thoughts because she was scared to tell them. She states that thoughts of been going on for a long time but they are getting worse and she just cannot handle them anymore. Nothing really makes them better or worse. She is taking her medicines but denies that they seem to help. [facility] Medical History DM2 (diabetes mellitus, type 2) HTN (hypertension) Schizophrenia Home Medications amlodipine 10 mg PO DAILY 01/16/20 [History Last Taken 07/31/20] fenofibrate nanocrystallized 48 mg PO DAILY 01/16/20 [History Last Taken 07/31/20] glipizide 5 mg PO DAILY 01/16/20 [History Last Taken 07/31/20] metformin 1,000 mg PO BIDCM 01/16/20 [History Last Taken 07/31/20] metoprolol succinate 25 mg PO BID 01/16/20 [History Last Taken Unknown] Aspirin [Aspirin Ec] 81 mg PO DAILY@0800 11/23/20 [History Last Taken Unknown] divalproex 500 mg PO QHS 11/23/20 [History Last Taken Unknown] duloxetine 30 mg PO DAILY 11/23/20 [History Last Taken Unknown] bupropion HCl 150 mg PO DAILY 01/04/21 [History Last Taken Unknown] olanzapine 5 mg PO DAILY 01/04/21 [History Last Taken Unknown] paliperidone palmitate 1 applic SQ QMONTH 01/10/21 [History Last Taken Unknown] Allergy/AdvReac Type Severity Reaction Status Date / Time lisinopril Allergy Anaphylaxis Verified 05/21/21 10:00 lithium Allergy Anaphylaxis Verified 05/21/21 10:00 risperidone [From Risperdal] Allergy Anaphylaxis Verified 05/21/21 10:00 sertraline HCl [From Zoloft] Allergy Anaphylaxis Verified 05/21/21 10:00 Social History Smoking Status: Never smoker ROS ROS ED Eyes Eyes: Denies change in vision or eye pain ENT ENT ED: Denies epistaxis or headache(s) Cardiovascular Cardiovascular: Denies chest pain or palpitations Respiratory/Chest Respiratory/Chest: Denies cough, hemoptysis or wheezing Gastrointestinal Gastrointestinal: Denies abdominal pain, hematochezia, melena, nausea or vomiting Genitourinary Genitourinary ED: Denies dysuria or hematuria Musculoskeletal Musculoskeletal: Denies back pain Integumentary Denies lesions or rash Neurologic Neurologic: Denies focal weakness or numbness Endocrine Endocrinology: Denies polydipsia or polyuria Hematologic/Lymphatic Hematologic/Lymphatic: Denies easy bleeding Allergic/Immunologic Allergic/Immunologic ED: Denies throat swelling or wheezing EXAM Physical Exam Const Vital Signs: 05/21/21 09:56 05/21/21 11:24 05/21/21 12:24 Temperature 98.0 F Temperature Source Temporal Pulse Rate 73 Respiratory Rate 16 16 15 Blood Pressure 130/88 H Blood Pressure Mean 102 Pulse Ox 97 Oxygen Delivery Method Room Air 05/21/21 13:24 05/21/21 14:00 05/21/21 15:00 Temperature Temperature Source Pulse Rate 80 Respiratory Rate 16 18 15 Blood Pressure 132/86 H Blood Pressure Mean 101 Pulse Ox 97 Oxygen Delivery Method Room Air Positive well nourished and well developed Constitutional Narrative: Patient just finishing eating a meal. She just is now drinking a cup of coffee without difficulty. General Appearance ED: well developed Orientation / Consciousness: awake, oriented to person, oriented to place and oriented to time HEENT Reports normocephalic normocephalic and atraumatic Face and Sinus: Negative for facial erythema Nose: Negative for epistaxis General Ear: No hearing grossly impaired External Ear: external ears normal Mouth ED: Yes lips normal, Yes moist mucous membranes normal and No muffled voice Mouth: lips normal and No muffled voice Eyes conjunctivae normal and no scleral icterus Neck full ROM General: normal visual inspection Chest Wall Chest: symmetrical chest wall rise Resp normal respiratory effort and normal air movement Effort and Inspection: Negative for audible wheezes Auscultation: Negative for rales, rhonchi or wheezes Cardio regular rate, regular rhythm and no murmurs Peripheral Pulses: pulses 2+ throughout GI normal to inspection, nondistended, normoactive bowel sounds, soft to palpation and non-tender no CVA tenderness Back/Spine normal ROM General Back: Negative for CVA tenderness Cervical Spine: cervical ROM normal Extremity full ROM and no pedal edema Neuro oriented x3 Sensorium / Orientation: awake and alert Psych Psych Narrative: Patient is awake and alert. She seems to have somewhat poor insight. She does have a slightly flat/depressed affect. Skin no rashes or lesions noted General Skin Exam: Negative for mottling MDM MDM MDM Narrative Medical decision making narrative: Blood work showed normal CBC. Electrolytes are unremarkable. Tox screen is negative. Urinalysis and alcohol are negative. Patient is medically cleared for psychiatric evaluation and admission if needed. Our social work is currently seeing my patient. Patient has been accepted to [facility]. Lab Data Attestation: I reviewed the patient's lab results. Labs: Laboratory Results - last 24 hr 05/21/21 05/21/21 05/21/21 10:00 10:27 10:27 WBC 6.6 RBC 4.45 Hgb 14.0 Hct 40.5 MCV 91.0 MCH 31.5 MCHC 34.6 RDW Std Deviation 44.5 H RDW Coeff of [place] 13.2 Plt Count 251 MPV 10.8 Immature Gran % (Auto) 0.200 Neut % (Auto) 55.4 Lymph % (Auto) 30.8 [place] % (Auto) 11.8 H Eos % (Auto) 1.2 Baso % (Auto) 0.6 Absolute Neuts (auto) 3.6 Absolute Lymphs (auto) 2.02 Nucleated RBC % 0 Sodium 136 Potassium 4.2 Chloride 102 Carbon Dioxide 26.0 Anion Gap 8 BUN 7 Creatinine 0.62 Estim Creat Clear Calc 86.45 Est GFR (MDRD) Af Amer 127 Est GFR (MDRD) Non-Af 105 BUN/Creatinine Ratio 11.2 Glucose 88 Calcium 10.0 Urine Color Urine Clarity Urine pH Ur Specific [place] Urine Protein Urine Glucose (UA) Urine Ketones Urine Occult Blood Urine Nitrite Urine Bilirubin Urine Urobilinogen Ur Leukocyte Esterase Urine RBC Urine WBC Ur Squamous Epith Cells Urine Bacteria Urine Mucus Urine Opiates Screen NEGATIVE Urine Methadone Screen NEGATIVE Ur Barbiturates Screen NEGATIVE Ur Phencyclidine Scrn NEGATIVE Ur Amphetamines Screen NEGATIVE U Methamphetamin-MDMA NEGATIVE U Benzodiazepines Scrn NEGATIVE Urine Cocaine Screen NEGATIVE U Cannabinoids Screen NEGATIVE Ur Drug Screen Comment Ethyl Alcohol 05/21/21 05/21/21 10:27 Unknown WBC RBC Hgb Hct MCV MCH MCHC RDW Std Deviation RDW Coeff of [place] Plt Count MPV Immature Gran % (Auto) Neut % (Auto) Lymph % (Auto) [place] % (Auto) Eos % (Auto) Baso % (Auto) Absolute Neuts (auto) Absolute Lymphs (auto) Nucleated RBC % Sodium Potassium Chloride Carbon Dioxide Anion Gap BUN Creatinine Estim Creat Clear Calc Est GFR (MDRD) Af Amer Est GFR (MDRD) Non-Af BUN/Creatinine Ratio Glucose Calcium Urine Color Yellow Urine Clarity Clear Urine pH 7.0 Ur Specific [place] 1.010 Urine Protein 30 H Urine Glucose (UA) Normal Urine Ketones Negative Urine Occult Blood Negative Urine Nitrite Negative Urine Bilirubin Negative Urine Urobilinogen Normal Ur Leukocyte Esterase Negative Urine RBC 0 SEEN Urine WBC 0 SEEN Ur Squamous Epith Cells 0-5 SEEN Urine Bacteria 0 SEEN Urine Mucus 0 SEEN Urine Opiates Screen Urine Methadone Screen Ur Barbiturates Screen Ur Phencyclidine Scrn Ur Amphetamines Screen U Methamphetamin-MDMA U Benzodiazepines Scrn Urine Cocaine Screen U Cannabinoids Screen Ur Drug Screen Comment Ethyl Alcohol < 3.0 Discharge Plan Triage Chief Complaint: Suicidal ED Provider: Ruy Kumar Dx/Rx/DC Orders Clinical Impression: Bipolar affect, depressed, Suicide ideation Prescriptions: No Action metformin 500 MG tablet 1,000 mg PO BIDCM RF: 0 amlodipine 10 MG tablet 10 mg PO DAILY RF: 0 metoprolol succinate 25 MG tablet extended release 24 hr 25 mg PO BID RF: 0 glipizide 5 MG tablet 5 mg PO DAILY RF: 0 fenofibrate nanocrystallized 48 MG tablet 48 mg PO DAILY RF: 0 Aspirin [Aspirin Ec] 81 MG Tablet.Dr 81 mg PO DAILY@0800 RF: 0 divalproex 500 MG tablet,delayed release (DR/EC) 500 mg PO QHS RF: 0 duloxetine 60 MG capsule,delayed release(DR/EC) 30 mg PO DAILY RF: 0 olanzapine 5 MG tablet 5 mg PO DAILY RF: 0 bupropion HCl 150 MG tablet extended release 24 hr 150 mg PO DAILY RF: 0 paliperidone palmitate 234 MG/1.5 ML syringe 1 applic SQ QMONTH RF: 0 Primary Care Provider: Kiana Chavarria Referrals: Kiana Chavarria MD [Primary Care Provider] - Disposition Disposition: Psychiatric Hospital or Unit Discharge Location: [facility]
[2021-05-21 11:04] LABS: Absolute Lymphocyte Count 2.02 X10^3/uL (0.83-4.51); Absolute Neutrophil Count 3.6 X10^3/uL (2.0-7.7); Basophil# 0.04 X10^3/uL; Basophil% 0.6 % (0-1); Eosinophil# 0.08 X10^3/uL; Eosinophils% 1.2 % (0-5); Hematocrit 40.5 % (37-47); Lymphocyte # 2.02 X10^3/ul (0.83-4.51); Lymphocyte % 30.8 % (19-41); Mean Corp Hgb Conc 34.6 g/dL (32-36); Mean Corpuscular Hgb 31.5 pg (27.0-32.0); Mean Platelet Vol. 10.8 fl (6.2-12.0); Monocyte# 0.77 X10^3/uL; Monocyte% 11.8 % (0-10); NRBC Flagged by Analyzer 0 % (0-5); Neutrophil # 3.63 X10^3/uL (2.7-7.7); Neutrophil % 55.4 % (47-70); Platelet Count 251 K/mm3 (150-450); RBC Distribution Width CV 13.2 % (11.6-14.6); RBC Distribution Width SD 44.5 fl (35.1-43.9); Red Blood Count 4.45 M/mm3 (4.2-5.4); White Blood Count 6.6 K/mm3 (4.4-11.0)
[2021-05-21 11:11] LABS: Anion Gap 8 (5-15); BUN 7 mg/dL (7-18); BUN/Creat Ratio 11.2 RATIO (10-20); Chloride 102 mmol/L (98-107); Creatinine, Serum 0.62 mg/dL (0.55-1.02); EST Glomerular Filtration Rate 105 mL/min (>60); Est Glom Filt Rate - Afr Amer 127 mL/min (>60); Estimated Creatinine Clearance 86.45 ml/min; Glucose 88 mg/dL (74-106); Potassium 4.2 mmol/L (3.5-5.1); Sodium Level 136 mmol/L (136-145)
[2021-05-21 11:19] LABS: Amphetamine Urine VISTA NEGATIVE (<1000 ng/mL); Barbiturate Urine VISTA NEGATIVE (< 200 ng/mL); Benzodiazepine Urine VISTA NEGATIVE (< 200 ng/mL); Cocaine Urine VISTA NEGATIVE (< 300 ng/mL); Ecstacy Urine VISTA NEGATIVE (< 500 ng/mL); Methadone Urine VISTA NEGATIVE (< 300 ng/mL); PCP Urine VISTA NEGATIVE (< 25 ng/mL); THC Urine VISTA NEGATIVE (< 50 ng/mL); Vista UDS pH Range 7
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
--- NOTE | 2021-05-21 11:25 | ED.RN ---
ATTEMPTED TO CONTACT LEGAL GUARDIAN
[2021-05-21 11:28] LABS: Bacteria 0 SEEN /hpf (None Seen); Mucous, Urine 0 SEEN /hpf (<or=2+); Red Blood Cells-Urine 0 SEEN /hpf (0-5); White Blood Cells 0 SEEN /hpf (0-5)
[2021-05-21 11:30] LABS: Color, Urine Yellow (Yellow); Glucose, Dipstick Normal (Normal); Ketone-Dipstick Negative (Negative); Leukocyte Esterase-Dipstick Negative /ul (Negative); Nitrite-Dipstick Negative (Negative); Occult Blood-Urine Negative /ul (Negative); Protein-Dipstick 30 mg/dl (Negative); Urine Bilirubin Dipstick Negative (Negative); Urine Clarity Clear (Clear); Urine Urobilinogen Normal (Normal)
[2021-05-21 11:35] LABS: Alcohol, Blood (Medical)-Serum < 3.0 mg/dL
[2021-05-21 11:54] LABS: Squamous Epithelial Cells - UA 0-5 SEEN /hpf (5-10)
--- NOTE | 2021-05-21 11:55 | CM.ED ---
SOCIAL WORK Call to Crisis to update on plan for placement as patient is [facility], spoke with Vannesa. Vannesa to reach out to [facility] and attempt to contact guardian. Vannesa reports will request they call this worker. Yesenia Horne, IT ADMIN, EXPEDITER CLERK
--- NOTE | 2021-05-21 12:32 | CM.ED ---
SOCIAL WORK Referral faxed and called to [facility]. Pending acceptance at this time. Yesenia Horne, NEON TUBE BENDER, ADVANCED MANUFACTURING ENGINEER
--- NOTE | 2021-05-21 13:53 | CM.ED ---
SOCIAL WORK Patient accepted to [facility] by [facility] to the [facility]. Nurse to call report to [phone] option 1. Tactical Intelligence Officer to set up transport. Copy of [facility] faxed per request. Patient and nurse, Vannesa ivanna. Plan: [facility] Yesenia Horne MSW, PSYCHOLOGIST ENGINEERING
--- NOTE | 2021-05-21 13:59 | NURSING ---
ACCEPTED AT [facility]
--- NOTE | 2021-05-21 14:08 | NURSING ---
CALLED [facility], ETA IS 2 HRS
[2021-05-21] MEDS: Ondansetron ODT 4 MG Tablet PO (14:15)
--- NOTE | 2021-05-21 16:32 | NURSING ---
CALLED STEFAN FOR UPDATED ETA. TALKED TO PAULINA. ANOTHER 30 MIN ETA
--- NOTE | 2021-05-21 17:17 | ED.RN ---
this nurse attempted to call report to [facility], went to the [employer]'s voice mail, left a message and a call back number no return call.
== END 2021-05-21 17:41 ==
PROVIDERS: Emergency Provider Emergency Medicine; PCP Internal Medicine
DX: F32.9 Major depressive disorder, single episode, unspecified (principal); R45.851 Suicidal ideations; F20.9 Schizophrenia, unspecified; I10 Essential (primary) hypertension; E11.9 Type 2 diabetes mellitus without complications; Z79.82 Long term (current) use of aspirin; Z79.84 Long term (current) use of oral hypoglycemic drugs; Z79.899 Other long term (current) drug therapy
CPT/HCPCS: 36415; 80048; 80307; 81001; 82077; 85025; 87426; 99285

== ENCOUNTER → 2021-06-14 09:54 | Outpatient (CLI) | payer MEDICAID, SELFPAY ==
[2021-06-14 10:16] LABS: Platelet Count 256 K/mm3 (150-450)
[2021-06-14 11:17] LABS: Valproic Acid (Depakene) Level 59 ug/mL (50-100)
[2021-06-14 11:18] LABS: AST(SGOT) 10 U/L (15-37); Alanine Aminotransfer ALT/SGPT 19 U/L (13-56); Prolactin 80.6 ng/mL
== END ==
PROVIDERS: PCP Internal Medicine; Referring Provider Psychiatry & Neurology Psychiatry; Visit Provider Psychiatry & Neurology Psychiatry
DX: Z79.899 Other long term (current) drug therapy (principal)
CPT/HCPCS: 36415; 80164; 82140; 84146; 84450; 84460; 85049

== ENCOUNTER → 2021-08-09 13:10 | Outpatient (CLI) | payer MEDICAID, SELFPAY ==
[2021-08-09 14:20] LABS: Hemoglobin A1c 5.7 % (3.8-5.6)
== END ==
PROVIDERS: PCP Internal Medicine
DX: E11.9 Type 2 diabetes mellitus without complications (principal); Z79.899 Other long term (current) drug therapy
CPT/HCPCS: 36415; 82140; 83036

== ENCOUNTER 2023-01-03 21:34 | Emergency (ER) | payer MEDICAID, SELFPAY ==
[2023-01-03 21:34] VITALS: BP 156/90; PULSE 82; RESP 16; TEMP 36.8; O2SAT 96; BMI 26.0
[2023-01-03 22:13] LABS: Bacteria 0 SEEN /hpf (None Seen); Mucous, Urine 0 SEEN /hpf (<or=2+); Red Blood Cells-Urine 0 SEEN /hpf (0-5); Squamous Epithelial Cells - UA 0 SEEN /hpf (5-10); White Blood Cells 0 SEEN /hpf (0-5)
[2023-01-03 22:26] LABS: Absolute Lymphocyte Count 3.14 X10^3/uL (0.83-4.51); Absolute Neutrophil Count 3.5 X10^3/uL (2.0-7.7); Basophil# 0.06 X10^3/uL; Basophil% 0.8 % (0-1); Eosinophil# 0.08 X10^3/uL; Hematocrit 40.8 % (37-47); Hemoglobin 13.8 g/dL (12.0-15.0); Lymphocyte # 3.14 X10^3/ul (0.83-4.51); Mean Corp Hgb Conc 33.8 g/dL (32-36); Mean Corpuscular Hgb 30.9 pg (27.0-32.0); Mean Corpuscular Volume 91.5 fL (81-99); Monocyte# 0.88 X10^3/uL; Monocyte% 11.5 % (0-10); NRBC Flagged by Analyzer 0 % (0-5); Neutrophil # 3.49 X10^3/uL (2.7-7.7); Neutrophil % 45.6 % (47-70); Platelet Count 213 K/mm3 (150-450); RBC Distribution Width CV 12.5 % (11.6-14.6); RBC Distribution Width SD 41.6 fl (35.1-43.9); Red Blood Count 4.46 M/mm3 (4.2-5.4); White Blood Count 7.7 K/mm3 (4.4-11.0)
[2023-01-03 22:28] LABS: Color, Urine Yellow (Yellow); Glucose, Dipstick Normal (Normal); Ketone-Dipstick Negative (Negative); Leukocyte Esterase-Dipstick 25 /ul (Negative); Nitrite-Dipstick Negative (Negative); Occult Blood-Urine Negative /ul (Negative); Protein-Dipstick 30 mg/dl (Negative); Urine Bilirubin Dipstick Negative (Negative); Urine Clarity Clear (Clear); Urine Urobilinogen Normal (Normal)
[2023-01-03 22:34] VITALS: RESP 15
[2023-01-03 22:47] LABS: Anion Gap 1 (5-15); BUN 13 mg/dL (7-18); BUN/Creat Ratio 15.2 RATIO (10-20); Calcium,Total 9.8 mg/dL (8.5-10.1); Chloride 107 mmol/L (98-107); Creatinine, Serum 0.85 mg/dL (0.55-1.02); EST Glomerular Filtration Rate 72 mL/min (>60); Est Glom Filt Rate - Afr Amer 87 mL/min (>60); Estimated Creatinine Clearance 61.54 ml/min; Glucose 169 mg/dL (74-106); Potassium 3.4 mmol/L (3.5-5.1); Sodium Level 137 mmol/L (136-145)
[2023-01-03 22:53] LABS: Amphetamine Urine VISTA NEGATIVE (<1000 ng/mL); Barbiturate Urine VISTA NEGATIVE (< 200 ng/mL); Benzodiazepine Urine VISTA NEGATIVE (< 200 ng/mL); Cocaine Urine VISTA NEGATIVE (< 300 ng/mL); Ecstacy Urine VISTA NEGATIVE (< 500 ng/mL); Methadone Urine VISTA NEGATIVE (< 300 ng/mL); PCP Urine VISTA NEGATIVE (< 25 ng/mL); THC Urine VISTA NEGATIVE (< 50 ng/mL); Vista UDS pH Range 7
--- NOTE | 2023-01-03 22:59 | EX.ED.VIS.PS ---
HPI HPI - Psych History of Present Illness Chief Complaint: Mental Health Informant: patient Onset/Context/Timing Onset: Days (2) Context: Gradual Onset Timing: Continuous Worsened by: - (At night) Relieved by: Shot of a medication Associated Symptoms Associated Symptoms - Psych: Positive for Auditory Hallucinations Narrative Narrative: Patient presents with auditory hallucinations that have been getting worse over the last 2 days. Patient states they are worse at night. Patient states she received a shot in her arm which seemed to help for a little while. Patient states the voices have returned. Patient states the voices are telling her to sit in front of a train and to kill herself. Patient denies any specific plan for suicidal ideations. Patient denies any visual hallucinations. [facility] Medical History (Updated 01/03/23 @ 23:[address] Saran Scanlon, ) DM2 (diabetes mellitus, type 2) HTN (hypertension) Schizophrenia Home Medications amlodipine 10 mg tablet 5 mg PO DAILY bp 01/16/20 [History Last Taken 07/31/20] fenofibrate nanocrystallized 48 mg tablet 48 mg PO DAILY cholesterol 01/16/20 [History Last Taken 07/31/20] metformin 500 mg tablet 500 mg PO BIDCM dm 01/16/20 [History Last Taken 07/31/20] metoprolol succinate 25 mg tablet,extended release 24 hr 25 mg PO BID heart 01/16/20 [History Last Taken Unknown] Aspirin [Aspirin Ec] 81 mg PO DAILY@0800 heart health 11/23/20 [History Last Taken Unknown] duloxetine 60 mg capsule,delayed release 60 mg PO DAILY depression 11/23/20 [History Last Taken Unknown] paliperidone palmitate 234 mg/1.5 mL intramuscular syringe 1 applic SQ QMONTH 01/10/21 [History Last Taken Unknown] benztropine 0.5 mg tablet 0.5 mg PO BID 01/03/23 [History Last Taken Unknown] haloperidol 5 mg tablet 5 mg PO BID 01/03/23 [History Last Taken Unknown] Allergy/AdvReac Type Severity Reaction Status Date / Time lisinopril Allergy Anaphylaxis Verified 01/03/23 21:37 lithium Allergy Anaphylaxis Verified 01/03/23 21:37 risperidone [From Risperdal] Allergy Anaphylaxis Verified 01/03/23 21:37 sertraline HCl [From Zoloft] Allergy Anaphylaxis Verified 01/03/23 21:37 divalproex sodium AdvReac Other Verified 01/03/23 21:37 [[facility] Surgical History (Updated 01/03/23 @ 23:[address] Saran Scanlon DO) History of ear surgery Hx of cholecystectomy Social History (Updated 01/03/23 @ 23:[address] Saran Scanlon, ) Smoking Status: Current every day smoker tobacco type: cigarettes ROS ROS ED Constitutional Constitutional ED: Denies chills or fever(s) Eyes Eyes: Denies blurry vision or change in vision ENT ENT ED: Denies rhinorrhea or sore throat Cardiovascular Cardiovascular: Denies chest pain or palpitations Respiratory/Chest Respiratory/Chest: Denies cough or dyspnea Gastrointestinal Gastrointestinal: Denies nausea or vomiting Genitourinary Genitourinary ED: Denies dysuria or hematuria Musculoskeletal Musculoskeletal: Denies back pain or neck pain Integumentary Denies abscess or rash Neurologic Neurologic: Denies headache(s) or weakness Psychiatric Psychiatric: Reports as per HPI and auditory hallucinations; Denies depression or suicidal thoughts Allergic/Immunologic Allergic/Immunologic ED: Denies mouth swelling or urticaria EXAM Physical Exam Const Vital Signs: 01/03/23 21:34 01/03/23 22:34 Temperature 98.3 F Temperature Source Temporal Pulse Rate 82 Respiratory Rate 16 15 Blood Pressure 156/90 H Blood Pressure Mean 112 Pulse Ox 96 Oxygen Delivery Method Room Air Positive well nourished and well developed General Appearance ED: well developed and NAD HEENT normocephalic and atraumatic Neck supple and no JVD Resp normal respiratory effort and clear to auscultation bilaterally Cardio no murmurs Rate: regular rate Rhythm: regular rhythm GI non-tender and non-distended Auscultation: normoactive bowel sounds Palpation: soft Extremity normal to inspection General Extremety ED: Negative for edema or tenderness General Extremity: Negative for edema Neuro oriented x3, CN's II-XII intact bilaterally and no sensory deficits noted Sensorium / Orientation: alert Motor Exam: strength 5/5 throughout Psych Activity / Motor Behavior: avoids eye contact Speech: minimal and soft Mood & Affect: depressed and flat affect Thought Content: No suicidality and hallucination(s) Positive for auditory Skin Rashes: no rashes MDM MDM MDM Narrative Medical decision making narrative: Differential diagnosis includes schizophrenia and suicidal ideations. Basic labs will be obtained to medically clear the patient for psychiatric evaluation. CBC will be obtained to assess for leukocytosis and anemia. Basic metabolic profile will be obtained to assess for electrolyte abnormality and renal function. Urinalysis will be obtained to assess for urinary tract infection. Urine tox screen will be obtained to assess for substance abuse. Serum alcohol level will be obtained to assess for alcohol intoxication. COVID-19 rapid antigen will be obtained to assess for COVID infection. Lab Data Attestation: I reviewed the patient's lab results. Lab results narrative: CBC was reviewed and was within normal limits. Basic metabolic profile was reviewed and was essentially within normal limits. Urinalysis was reviewed. There is no evidence of urinary tract infection or hematuria. Urine tox screen was reviewed and was negative. Serum alcohol level was reviewed and was negative. COVID-19 rapid antigen was reviewed and was negative. Labs: Laboratory Results - last 24 hr 01/03/23 01/03/23 01/03/23 21:45 21:45 22:15 WBC 7.7 RBC 4.46 Hgb 13.8 Hct 40.8 MCV 91.5 MCH 30.9 MCHC 33.8 RDW Std Deviation 41.6 RDW Coeff of [place] 12.5 Plt Count 213 MPV 11.0 Immature Gran % (Auto) 0.100 Neut % (Auto) 45.6 L Lymph % (Auto) 41.0 [place] % (Auto) 11.5 H Eos % (Auto) 1.0 Baso % (Auto) 0.8 Absolute Neuts (auto) 3.5 Absolute Lymphs (auto) 3.14 Nucleated RBC % 0 Sodium Potassium Chloride Carbon Dioxide Anion Gap BUN Creatinine Estim Creat Clear Calc Est GFR (MDRD) Af Amer Est GFR (MDRD) Non-Af BUN/Creatinine Ratio Glucose Calcium Urine Color Yellow Urine Clarity Clear Urine pH 7.0 Ur Specific [place] 1.010 Urine Protein 30 H Urine Glucose (UA) Normal Urine Ketones Negative Urine Occult Blood Negative Urine Nitrite Negative Urine Bilirubin Negative Urine Urobilinogen Normal Ur Leukocyte Esterase 25 H Urine RBC 0 SEEN Urine WBC 0 SEEN Ur Squamous Epith Cells 0 SEEN Urine Bacteria 0 SEEN Urine Mucus 0 SEEN Urine Opiates Screen NEGATIVE Urine Methadone Screen NEGATIVE Ur Barbiturates Screen NEGATIVE Ur Phencyclidine Scrn NEGATIVE Ur Amphetamines Screen NEGATIVE MDMA (Ecstasy) Screen NEGATIVE U Benzodiazepines Scrn NEGATIVE Urine Cocaine Screen NEGATIVE U Cannabinoids Screen NEGATIVE Ur Drug Screen Comment Ethyl Alcohol 01/03/23 01/03/23 22:15 22:15 WBC RBC Hgb Hct MCV MCH MCHC RDW Std Deviation RDW Coeff of [place] Plt Count MPV Immature Gran % (Auto) Neut % (Auto) Lymph % (Auto) [place] % (Auto) Eos % (Auto) Baso % (Auto) Absolute Neuts (auto) Absolute Lymphs (auto) Nucleated RBC % Sodium 137 Potassium 3.4 L Chloride 107 Carbon Dioxide 29.0 Anion Gap 1 L BUN 13 Creatinine 0.85 Estim Creat Clear Calc 61.54 Est GFR (MDRD) Af Amer 87 Est GFR (MDRD) Non-Af 72 BUN/Creatinine Ratio 15.2 Glucose 169 H Calcium 9.8 Urine Color Urine Clarity Urine pH Ur Specific [place] Urine Protein Urine Glucose (UA) Urine Ketones Urine Occult Blood Urine Nitrite Urine Bilirubin Urine Urobilinogen Ur Leukocyte Esterase Urine RBC Urine WBC Ur Squamous Epith Cells Urine Bacteria Urine Mucus Urine Opiates Screen Urine Methadone Screen Ur Barbiturates Screen Ur Phencyclidine Scrn Ur Amphetamines Screen MDMA (Ecstasy) Screen U Benzodiazepines Scrn Urine Cocaine Screen U Cannabinoids Screen Ur Drug Screen Comment Ethyl Alcohol 5.0 Treatment and Re-Evaluation Narrative: Patient was given a nicotine patch here. Patient is medically cleared for psychiatric evaluation. Patient will be evaluated by crisis counselor. Care of the patient will be turned over to the oncoming physician pending psychiatric evaluation by crisis counselor. Discharge Plan Triage Chief Complaint: Mental Health ED Provider: Saran Scanlon Dx/Rx/DC Orders Clinical Impression: Schizophrenia, Mental deficiency Prescriptions: No Action metformin 500 MG tablet 500 mg PO BIDCM amlodipine 10 MG tablet 5 mg PO DAILY metoprolol succinate 25 MG tablet extended release 24 hr 25 mg PO BID fenofibrate nanocrystallized 48 MG tablet 48 mg PO DAILY Aspirin [Aspirin Ec] 81 MG Tablet.Dr 81 mg PO DAILY@0800 duloxetine 60 MG capsule,delayed release(DR/EC) 60 mg PO DAILY paliperidone palmitate 234 MG/1.5 ML syringe 1 applic SQ QMONTH benztropine 0.5 mg tablet 0.5 mg PO BID haloperidol 5 mg tablet 5 mg PO BID Primary Care Provider: Kiana Chavarria Referrals: Kiana Chavarria MD [Primary Care Provider] -
[2023-01-03 23:00] VITALS: RESP 14
[2023-01-04] VITALS: RESP 15
[2023-01-04 01:00] VITALS: RESP 16
--- NOTE | 2023-01-04 01:16 | ED.RN ---
crisis at bedside speaking with patient.
--- NOTE | 2023-01-04 01:54 | ED.RN ---
CRISIS REFERRED PT TO [facility]
[2023-01-04 02:00] VITALS: RESP 16
[2023-01-04 03:00] VITALS: RESP 16
--- NOTE | 2023-01-04 03:51 | ED.RN ---
PT ACCEPTED AT [facility] [id number] FLOOR/RM WILL BE GIVEN AT REPORT. STEFAN MIRANDA 7AM
--- NOTE | 2023-01-04 04:19 | ED.RN ---
Report given to Ammy BAZZI at [facility]
[2023-01-04] MEDS: Temazepam 15 MG Capsule PO (04:22)
[2023-01-04 04:28] VITALS: BP 164/82; PULSE 80; RESP 17; O2SAT 98
[2023-01-04 05:29] VITALS: BP 164/82; PULSE 80; RESP 17; TEMP 36.8; O2SAT 98
== END 2023-01-04 07:24 ==
PROVIDERS: Emergency Provider Emergency Medicine; PCP Internal Medicine; Visit Provider Emergency Medicine
DX: F20.9 Schizophrenia, unspecified (principal); E11.9 Type 2 diabetes mellitus without complications; I10 Essential (primary) hypertension; F17.210 Nicotine dependence, cigarettes, uncomplicated; Z79.899 Other long term (current) drug therapy; Z79.84 Long term (current) use of oral hypoglycemic drugs; Z79.82 Long term (current) use of aspirin
CPT/HCPCS: 36415; 80048; 80307; 81001; 82077; 85025; 87811; 99285

== ENCOUNTER 2023-01-26 12:50 | Emergency (ER) | payer MEDICAID, SELFPAY ==
[2023-01-26 12:51] VITALS: BP 119/74; PULSE 104; RESP 18; TEMP 36.1; O2SAT 97
[2023-01-26 13:38] VITALS: BMI 25.6
--- NOTE | 2023-01-26 13:47 | EDS_ITS ---
HPI HPI - GI History of Present Illness Chief Complaint: Abd Pain Informant: patient Abdominal Pain/Flank Pain Onset: Days Context: Gradual Onset Timing: Continuous Quality: Sharp Location: RLQ and LLQ Nausea/Vomiting/Emesis GI Symptom: Positive for Nausea; Negative for Vomiting Diarrhea/Melena/Hematochezia GI Symptom: Negative for Diarrhea, Melena or Hematochezia Associated Symptoms Associated Symptoms: Negative for Dysuria, Frequency or Hematuria Narrative Narrative: Patient presents with abdominal pain that has been getting worse over the past few days. Patient had an outpatient CT scan of her abdomen pelvis yesterday which shows a 6 cm abscess and diverticulitis. Patient was referred to the emergency department by her primary care physician when she got these results today. Per the report from the primary care physician, the abscess is not amenable to percutaneous drainage. Patient states her pain has been constant over the past few days. Patient states the pain is mainly over the lower abdomen. Patient describes her pain as sharp. Patient admits to nausea but denies any vomiting. Patient denies any diarrhea, melena, or hematochezia. Patient denies any urinary complaints. [facility] Medical History DM2 (diabetes mellitus, type 2) HTN (hypertension) Schizophrenia Home Medications amlodipine 10 mg tablet 5 mg PO DAILY bp 01/16/20 [History Last Taken 07/31/20] fenofibrate nanocrystallized 48 mg tablet 48 mg PO DAILY cholesterol 01/16/20 [History Last Taken 07/31/20] metformin 500 mg tablet 500 mg PO BIDCM dm 01/16/20 [History Last Taken 07/31/20] metoprolol succinate 25 mg tablet,extended release 24 hr 25 mg PO BID heart 01/16/20 [History Last Taken Unknown] Aspirin [Aspirin Ec] 81 mg PO DAILY@0800 heart health 11/23/20 [History Last Taken Unknown] duloxetine 60 mg capsule,delayed release 60 mg PO DAILY depression 11/23/20 [History Last Taken Unknown] paliperidone palmitate 234 mg/1.5 mL intramuscular syringe 1 applic SQ QMONTH 01/10/21 [History Last Taken Unknown] benztropine 0.5 mg tablet 0.5 mg PO BID 01/03/23 [History Last Taken Unknown] haloperidol 5 mg tablet 5 mg PO BID 01/03/23 [History Last Taken Unknown] Allergy/AdvReac Type Severity Reaction Status Date / Time lisinopril Allergy Anaphylaxis Verified 01/26/23 13:39 lithium Allergy Anaphylaxis Verified 01/26/23 13:39 risperidone [From Risperdal] Allergy Anaphylaxis Verified 01/26/23 13:39 sertraline HCl [From Zoloft] Allergy Anaphylaxis Verified 01/26/23 13:39 divalproex sodium AdvReac Other Verified 01/26/23 13:39 [From Depakote] Surgical History History of ear surgery Hx of cholecystectomy Social History Smoking Status: Current every day smoker tobacco type: cigarettes ROS ROS ED Constitutional Constitutional ED: Denies chills or fever(s) Eyes Eyes: Denies blurry vision or change in vision ENT ENT ED: Denies rhinorrhea or sore throat Cardiovascular Cardiovascular: Denies chest pain or palpitations Respiratory/Chest Respiratory/Chest: Denies cough or dyspnea Gastrointestinal Gastrointestinal: Reports abdominal pain and nausea; Denies vomiting Genitourinary Genitourinary ED: Denies dysuria or hematuria Musculoskeletal Musculoskeletal: Denies back pain or neck pain Integumentary Denies abscess or rash Neurologic Neurologic: Denies headache(s) or weakness Allergic/Immunologic Allergic/Immunologic ED: Denies mouth swelling or urticaria EXAM Physical Exam Const Vital Signs: 01/26/23 12:51 01/26/23 15:22 01/26/23 17:00 Temperature 97 F L Temperature Source Temporal Pulse Rate 104 H 87 87 Respiratory Rate 18 17 18 Blood Pressure 119/74 142/78 H 134/76 H Blood Pressure Mean 89 99 95 Pulse Ox 97 96 96 Oxygen Delivery Method Room Air Room Air Room Air 01/26/23 19:44 01/26/23 20:25 01/26/23 21:08 Temperature Temperature Source Pulse Rate 84 84 Respiratory Rate 18 18 18 Blood Pressure 150/77 H 150/77 H Blood Pressure Mean 101 101 Pulse Ox 93 93 Oxygen Delivery Method Room Air Room Air Positive well nourished and well developed General Appearance ED: well developed and NAD HEENT Reports moist mucous membranes Neck supple and no JVD Resp normal respiratory effort and clear to auscultation bilaterally Cardio regular rate, regular rhythm and no murmurs GI normal to inspection, nondistended, normoactive bowel sounds Palpation: soft and tender LLQ, RLQ and suprapubic; Negative for guarding or rebound tenderness present Extremity normal to inspection General Extremety ED: Negative for edema or tenderness General Extremity: Negative for edema Neuro oriented x3, CN's II-XII intact bilaterally, moves all extremities and no sensory deficits noted Sensorium / Orientation: alert Motor Exam: strength 5/5 throughout Psych mental status grossly normal Skin no rashes or lesions noted MDM MDM MDM Narrative Medical decision making narrative: Patient had an outpatient CAT scan done yesterday which showed diverticulitis and 6 cm abscess. Patient was advised of these findings. Patient was given a dose of Zosyn here. CBC will be obtained to assess for leukocytosis and anemia. Comprehensive metabolic profile will be obtained to assess for renal function, hepatic function, and electrolyte abnormality. Urinalysis will be obtained to assess for urinary tract infection. Lactate will be obtained to assess for sepsis. History & Record Review Additional record(s) reviewed:: Prior outpatient record and Prior labs Lab Data Attestation: I reviewed the patient's lab results. Lab results narrative: CBC was reviewed. There is a leukocytosis of 18.1. Hemoglobin was 11.7 and hematocrit is 34.7. Comprehensive metabolic profile was reviewed and was within normal limits. Lactate was reviewed and was normal. Labs: Laboratory Results - last 24 hr 01/26/23 01/26/23 01/26/23 14:09 14:09 14:09 WBC 18.1 H RBC 3.82 L Hgb 11.7 L Hct 34.7 L MCV 90.8 MCH 30.6 MCHC 33.7 RDW Std Deviation 40.9 RDW Coeff of [place] 12.4 Plt Count 377 MPV 10.2 Immature Gran % (Auto) 0.400 Neut % (Auto) 79.4 H Lymph % (Auto) 8.3 L [place] % (Auto) 11.4 H Eos % (Auto) 0.2 Baso % (Auto) 0.3 Absolute Neuts (auto) 14.4 H Absolute Lymphs (auto) 1.50 Nucleated RBC % 0 Differential Comment SCANNED Diff Path Review May foll Sodium 135 L Potassium 3.9 Chloride 101 Carbon Dioxide 27.0 Anion Gap 7 BUN 13 Creatinine 0.72 Estim Creat Clear Calc 72.65 Est GFR (MDRD) Af Amer 107 Est GFR (MDRD) Non-Af 88 BUN/Creatinine Ratio 18.1 Glucose 127 H Lactic Acid 1.4 Calcium 10.0 Total Bilirubin 0.50 AST 19 ALT 37 Alkaline Phosphatase 103 Total Protein 7.4 Albumin 2.7 L Globulin 4.7 H Albumin/Globulin Ratio 0.6 L Urine Color Urine Clarity Urine pH Ur Specific [place] Urine Protein Urine Glucose (UA) Urine Ketones Urine Occult Blood Urine Nitrite Urine Bilirubin Urine Urobilinogen Ur Leukocyte Esterase Urine RBC Urine WBC Ur Squamous Epith Cells Urine Bacteria Urine Mucus 01/26/23 15:20 WBC RBC Hgb Hct MCV MCH MCHC RDW Std Deviation RDW Coeff of [place] Plt Count MPV Immature Gran % (Auto) Neut % (Auto) Lymph % (Auto) [place] % (Auto) Eos % (Auto) Baso % (Auto) Absolute Neuts (auto) Absolute Lymphs (auto) Nucleated RBC % Differential Comment Diff Path Review Sodium Potassium Chloride Carbon Dioxide Anion Gap BUN Creatinine Estim Creat Clear Calc Est GFR (MDRD) Af Amer Est GFR (MDRD) Non-Af BUN/Creatinine Ratio Glucose Lactic Acid Calcium Total Bilirubin AST ALT Alkaline Phosphatase Total Protein Albumin Globulin Albumin/Globulin Ratio Urine Color Yellow Urine Clarity Clear Urine pH 5.0 Ur Specific [place] 1.025 Urine Protein 100 H Urine Glucose (UA) 100 H Urine Ketones Negative Urine Occult Blood 10 H Urine Nitrite Negative Urine Bilirubin Negative Urine Urobilinogen 1 H Ur Leukocyte Esterase 100 H Urine RBC 0 SEEN Urine WBC 0-5 SEEN Ur Squamous Epith Cells 0-5 SEEN Urine Bacteria RARE Urine Mucus 0 SEEN Management Discussion w/another healthcare provider: Security Incident Response Specialist Treatment and Re-Evaluation :: Case was discussed with Dr. Kam. He felt that the abscess was amenable to percutaneous drainage under interventional radiology. He recommended transferring the patient for percutaneous drainage since we are unable to perform interventional radiology at this time. Initially, patient requested to be transferred to [facility]. However, there are no beds available there at this time. They recommended trying to contact [facility]. [facility] was contacted. We are currently awaiting callback from them. Care of the patient was turned over to the oncoming physician. Discharge Plan Triage Chief Complaint: Abd Pain ED Provider: Saran Scanlon Dx/Rx/DC Orders Clinical Impression: Diverticulitis, Schizophrenia, Intra-abdominal abscess Prescriptions: No Action metformin 500 MG tablet 500 mg PO BIDCM amlodipine 10 MG tablet 5 mg PO DAILY metoprolol succinate 25 MG tablet extended release 24 hr 25 mg PO BID fenofibrate nanocrystallized 48 MG tablet 48 mg PO DAILY Aspirin [Aspirin Ec] 81 MG Tablet.Dr 81 mg PO DAILY@0800 duloxetine 60 MG capsule,delayed release(DR/EC) 60 mg PO DAILY paliperidone palmitate 234 MG/1.5 ML syringe 1 applic SQ QMONTH benztropine 0.5 mg tablet 0.5 mg PO BID haloperidol 5 mg tablet 5 mg PO BID Primary Care Provider: Kiana Chavarria Referrals: Kiana Chavarria MD [Primary Care Provider] - Disposition Disposition: Acute Care Hospital Discharge Location: [facility] Discharge Date/Time: 01/26/23 21:14
[2023-01-26 14:15] LABS: Absolute Neutrophil Count 14.4 X10^3/uL (2.0-7.7); Basophil# 0.05 X10^3/uL; Basophil% 0.3 % (0-1); Eosinophil# 0.04 X10^3/uL; Eosinophils% 0.2 % (0-5); Hematocrit 34.7 % (37-47); Hemoglobin 11.7 g/dL (12.0-15.0); Lymphocyte % 8.3 % (19-41); Mean Corp Hgb Conc 33.7 g/dL (32-36); Mean Corpuscular Hgb 30.6 pg (27.0-32.0); Mean Corpuscular Volume 90.8 fL (81-99); Mean Platelet Vol. 10.2 fl (6.2-12.0); Monocyte# 2.07 X10^3/uL; Monocyte% 11.4 % (0-10); NRBC Flagged by Analyzer 0 % (0-5); Neutrophil # 14.38 X10^3/uL (2.7-7.7); Neutrophil % 79.4 % (47-70); POSITIVE DIFFERENTIAL YES; Platelet Count 377 K/mm3 (150-450); RBC Distribution Width CV 12.4 % (11.6-14.6); RBC Distribution Width SD 40.9 fl (35.1-43.9); Red Blood Count 3.82 M/mm3 (4.2-5.4); White Blood Count 18.1 K/mm3 (4.4-11.0)
[2023-01-26 14:16] LABS: Differential Indicated SCAN CRITERIA MET
[2023-01-26 14:32] LABS: ALB/GLOB Ratio 0.6 RATIO (0.9-2.4); AST(SGOT) 19 U/L (15-37); Alanine Aminotransfer ALT/SGPT 37 U/L (13-56); Albumin, Serum 2.7 g/dL (3.2-5.0); Alkaline Phosphatase 103 U/L (45-117); Anion Gap 7 (5-15); BUN 13 mg/dL (7-18); BUN/Creat Ratio 18.1 RATIO (10-20); Chloride 101 mmol/L (98-107); Creatinine, Serum 0.72 mg/dL (0.55-1.02); EST Glomerular Filtration Rate 88 mL/min (>60); Est Glom Filt Rate - Afr Amer 107 mL/min (>60); Estimated Creatinine Clearance 72.65 ml/min; Globulin 4.7 g/dL (2.2-4.2); Glucose 127 mg/dL (74-106); Potassium 3.9 mmol/L (3.5-5.1); Protein, Total 7.4 g/dL (6.4-8.2); Sodium Level 135 mmol/L (136-145)
[2023-01-26 14:39] LABS: Differential Comment SCANNED
[2023-01-26 14:42] LABS: Lactic Acid 1.4 mmol/L (0.4-1.9)
[2023-01-26 15:22] VITALS: BP 142/78; PULSE 87; RESP 17; O2SAT 96
[2023-01-26 15:46] LABS: Mucous, Urine 0 SEEN /hpf (<or=2+); Red Blood Cells-Urine 0 SEEN /hpf (0-5)
[2023-01-26 16:05] LABS: Color, Urine Yellow (Yellow); Glucose, Dipstick 100 mg/dl (Normal); Ketone-Dipstick Negative (Negative); Leukocyte Esterase-Dipstick 100 /ul (Negative); Nitrite-Dipstick Negative (Negative); Occult Blood-Urine 10 /ul (Negative); Protein-Dipstick 100 mg/dl (Negative); Specific Gravity, Urine 1.025 (1.002-1.030); Urine Bilirubin Dipstick Negative (Negative); Urine Clarity Clear (Clear); Urine Urobilinogen 1 mg/dl (Normal)
[2023-01-26 16:15] LABS: White Blood Cells 0-5 SEEN /hpf (0-5)
[2023-01-26 16:16] LABS: Bacteria RARE /hpf (None Seen); Squamous Epithelial Cells - UA 0-5 SEEN /hpf (5-10)
[2023-01-26] MEDS: Morphine 4 MG/ML Syringe IV ×2 (16:31→18:18)
[2023-01-26] MEDS: Ondansetron 4 MG/2 ML Vial IV (16:31)
[2023-01-26 17:00] VITALS: BP 134/76; PULSE 87; RESP 18; O2SAT 96
--- NOTE | 2023-01-26 19:34 | ED.RN ---
THIS RN CALLED AND RECEIVED VERBAL CONSENT FROM [facility] TO TRANSPORT PT TO [facility] AT 1921.
--- NOTE | 2023-01-26 19:35 | ED.RN ---
THIS RN CALLED PT REPORT TO [facility] AT 1935. REPORT TAKEN BY JLUIS BLOOM.
[2023-01-26 19:44] VITALS: BP 150/77; PULSE 84; RESP 18; O2SAT 93
[2023-01-26 20:25] VITALS: BP 150/77; PULSE 84; RESP 18; O2SAT 93
--- NOTE | 2023-01-26 21:04 | ED.RN ---
REPORT GIVEN TO PERRY, EMT WITH [facility].
[2023-01-26 21:08] VITALS: RESP 18
[2023-01-30 09:47] LABS: Pathologist Review Reviewed
== END 2023-01-26 21:14 | disposition short-term general hospital (02) ==
PROVIDERS: Emergency Provider Emergency Medicine; PCP Internal Medicine; Visit Provider Emergency Medicine
DX: K57.90 Diverticulosis of intestine, part unspecified, without perforation or abscess without bleeding (principal); F20.9 Schizophrenia, unspecified; K65.1 Peritoneal abscess; E11.9 Type 2 diabetes mellitus without complications; I10 Essential (primary) hypertension; F17.210 Nicotine dependence, cigarettes, uncomplicated; Z79.82 Long term (current) use of aspirin; Z79.84 Long term (current) use of oral hypoglycemic drugs; Z79.899 Other long term (current) drug therapy
CPT/HCPCS: 80053; 81001; 83605; 85025; 96365; 96366; 96375; 96376; 99285; A4216; J2405

== ENCOUNTER 2023-12-01 00:38 | Emergency (ER) | payer MEDICAID, SELFPAY ==
[2023-12-01] VITALS (8 sets, daily range): BP systolic 138–160; BP diastolic 70–96; PULSE 70–75; RESP 14–20; TEMP 36.4; O2SAT 96–100; BMI 25.5
--- NOTE | 2023-12-01 00:42 | EKG12_ITS ---
Test Reason : SUICIDAL Blood Pressure : / mmHG Vent. Rate : 073 BPM Atrial Rate : 073 BPM P-R Int : 180 ms QRS Dur : 090 ms QT Int : 402 ms P-R-T Axes : 069 -28 050 degrees QTc Int : 442 ms Normal sinus rhythm Confirmed by Hakeem Rinaldi ([id number]), newspaper copy editor URIEL EMERSON ([id number]) on 12/03/2023 2:16:21 PM Referred By: DONNA Confirmed By:Hakeem Rinaldi
[2023-12-01 01:30] LABS: Absolute Lymphocyte Count 2.54 X10^3/uL (0.83-4.51); Absolute Neutrophil Count 4.3 X10^3/uL (2.0-7.7); Basophil# 0.04 X10^3/uL; Basophil% 0.5 % (0-1); Eosinophil# 0.13 X10^3/uL; Eosinophils% 1.6 % (0-5); Hematocrit 38.5 % (37-47); Hemoglobin 13.2 g/dL (12.0-15.0); Lymphocyte # 2.54 X10^3/ul (0.83-4.51); Lymphocyte % 30.9 % (19-41); Mean Corp Hgb Conc 34.3 g/dL (32-36); Mean Corpuscular Hgb 30.9 pg (27.0-32.0); Mean Corpuscular Volume 90.2 fL (81-99); Mean Platelet Vol. 10.8 fl (6.2-12.0); Monocyte# 1.11 X10^3/uL; Monocyte% 13.5 % (0-10); NRBC Flagged by Analyzer 0 % (0-5); Neutrophil # 4.34 X10^3/uL (2.7-7.7); Neutrophil % 52.6 % (47-70); Platelet Count 222 K/mm3 (150-450); RBC Distribution Width CV 12.9 % (11.6-14.6); RBC Distribution Width SD 42.1 fl (35.1-43.9); Red Blood Count 4.27 M/mm3 (4.2-5.4); White Blood Count 8.2 K/mm3 (4.4-11.0)
[2023-12-01 01:34] LABS: Anion Gap 7 (5-15); BUN 20 mg/dL (7-18); BUN/Creat Ratio 24.4 RATIO (10-20); Calcium,Total 9.9 mg/dL (8.5-10.1); Chloride 102 mmol/L (98-107); Creatinine, Serum 0.82 mg/dL (0.55-1.02); EST Glomerular Filtration Rate 76 mL/min (>60); Est Glom Filt Rate - Afr Amer 92 mL/min (>60); Estimated Creatinine Clearance 68.94 ml/min; Glucose 156 mg/dL (74-106); Potassium 3.5 mmol/L (3.5-5.1); Sodium Level 138 mmol/L (136-145)
[2023-12-01 01:35] LABS: Alcohol, Blood (Medical)-Serum < 3.0 mg/dL
[2023-12-01 02:07] LABS: Amphetamine Urine VISTA NEGATIVE (<1000 ng/mL); Barbiturate Urine VISTA NEGATIVE (< 200 ng/mL); Benzodiazepine Urine VISTA NEGATIVE (< 200 ng/mL); Cocaine Urine VISTA NEGATIVE (< 300 ng/mL); Ecstacy Urine VISTA NEGATIVE (< 500 ng/mL); Methadone Urine VISTA NEGATIVE (< 300 ng/mL); PCP Urine VISTA NEGATIVE (< 25 ng/mL); THC Urine VISTA NEGATIVE (< 50 ng/mL); Vista UDS pH Range 5
--- NOTE | 2023-12-01 02:54 | EDS_ITS ---
HPI HPI - Psych History of Present Illness Chief Complaint: Suicidal Detail of Chief Complaint: Auditory hallucinations and suicidal ideation Informant: patient and mental health staff Onset/Context/Timing Onset: Days Context: Gradual Onset Conflict: Family, Work and Financial Timing: Continuous and Waxes and wanes Current Severity: Moderate Maximum Severity: Severe Worsened by: Situational factors and Alcohol intoxication Relieved by: Nothing Associated Symptoms Associated Symptoms - Psych: Positive for Depressed, Change in Eating, Change in sleeping, Decreased Interest, Suicidal Thoughts, Easily distracted, Paranoia and Auditory Hallucinations; Negative for Decreased Concentration, Hopelessness, Grandiosity, Flight of Ideas, Increased activity, Pressured Speech, Agitated, Angry, Hostile, Threatening or Confusion Specific plan (suicidal thought): Command auditory hallucination telling patient to walk in front of a car Narrative Narrative: Patient is a 58-year-old woman. She has history of diabetes, hypertension, cognitive deficit, schizophrenia who was evaluated by the [facility] licensed social worker through the counseling center. She was recent seen by her doctor. She received a IM injection of medication. In spite of this she has not gotten better. She is having paranoid ideation. She is having command auditory hallucinations to harm herself. She states the voices are telling her to walk in front of her vehicle. Patient denies headache, visual, ocular auditory symptoms. Patient denies chest pain, shortness of breath or difficulty breathing. Patient denies palpitations. Patient denies abdominal pain, nausea, vomiting or diarrhea. She denies dysuria, frequency, urgency or hematuria. Denies flank pain. Prior similar symptoms: Yes Recent Illness/Hospitalization: No PFSH PFS Medical History DM2 (diabetes mellitus, type 2) HTN (hypertension) Schizophrenia Home Medications amlodipine 10 mg tablet 5 mg PO DAILY bp 01/16/20 [History Last Taken 07/31/20] fenofibrate nanocrystallized 48 mg tablet 48 mg PO DAILY cholesterol 01/16/20 [History Last Taken 07/31/20] metformin 500 mg tablet 500 mg PO BIDCM dm 01/16/20 [History Last Taken 07/31/20] metoprolol succinate 25 mg tablet,extended release 24 hr 25 mg PO BID heart 01/16/20 [History Last Taken Unknown] Aspirin [Aspirin Ec] 81 mg PO DAILY@0800 [facility] 11/23/20 [History Last Taken Unknown] duloxetine 60 mg capsule,delayed release 60 mg PO DAILY depression 11/23/20 [History Last Taken Unknown] paliperidone palmitate 234 mg/1.5 mL intramuscular syringe 1 applic SQ QMONTH 01/10/21 [History Last Taken Unknown] benztropine 0.5 mg tablet 0.5 mg PO BID 01/03/23 [History Last Taken Unknown] haloperidol 5 mg tablet 5 mg PO BID 01/03/23 [History Last Taken Unknown] Allergy/AdvReac Type Severity Reaction Status Date / Time lisinopril Allergy Anaphylaxis Verified 12/01/23 00:40 lithium Allergy Anaphylaxis Verified 12/01/23 00:40 risperidone [From Risperdal] Allergy Anaphylaxis Verified 12/01/23 00:40 sertraline HCl [From Zoloft] Allergy Anaphylaxis Verified 12/01/23 00:40 divalproex sodium AdvReac Other Verified 12/01/23 00:40 [From Depakote] Surgical History History of ear surgery Hx of cholecystectomy Social History (Updated 12/01/23 @ 02:[address] Rosalio Dos Santos MD) household members: other details: nursing home Smoking Status: Current every day smoker tobacco type: cigarettes substance use type: does not use ROS ROS ED Constitutional Constitutional ED: Denies chills, fever(s), subjective or sweats Eyes Eyes: Denies blurry vision or change in vision ENT ENT ED: Denies ear pain, rhinorrhea or sore throat Cardiovascular Cardiovascular: Denies chest pain, orthopnea, palpitations, paroxysmal nocturnal dyspnea or racing heartbeat Respiratory/Chest Respiratory/Chest: Denies cough, dyspnea, dyspnea on exertion, orthopnea or paroxysmal nocturnal dyspnea Gastrointestinal Gastrointestinal: Denies abdominal pain, constipation, diarrhea, nausea or vomiting Genitourinary Genitourinary ED: Denies dysuria, hematuria or urinary frequency Musculoskeletal Musculoskeletal: Denies arthralgias, back pain or myalgias Integumentary Denies rash Neurologic Neurologic: Denies headache(s), paresthesias or weakness Psychiatric Psychiatric: Reports anxiety, depression, suicidal ideation and suicidal thoughts Endocrine Endocrinology: Denies polydipsia, polyphagia or polyuria EXAM Physical Exam Const Vital Signs: 12/01/23 00:40 12/01/23 02:00 Temperature 97.5 F L Temperature Source Temporal Pulse Rate 75 Respiratory Rate 14 18 Blood Pressure 156/96 H Blood Pressure Mean 116 Pulse Ox 97 Positive well nourished, well developed, obese and unkempt General Appearance ED: unkempt and well developed; Negative for pallor Nutritional Appearance: obese HEENT Reports moist mucous membranes normocephalic and atraumatic Eyes PERRL and EOMs intact bilaterally General Eye ED: Negative for pale conjunctiva or scleral icterus Neck no lymphadenopathy, supple and no JVD Resp normal respiratory effort and clear to auscultation bilaterally Cardio S1 normal heart sound, S2 normal heart sound and no murmurs Rate: regular rate Rhythm: regular rhythm GI non-tender, non-distended and no masses Back/Spine no CVA tenderness Cervical Spine: Negative for cervical spine tenderness Thoracic Spine / Upper Back: Negative for thoracic spinal tenderness Lumbar Spine / Lower Back: Negative for lumbar spinal tenderness Extremity normal to inspection General Extremety ED: Negative for edema or tenderness General Extremity: Negative for edema Neuro oriented x3, CN's II-XII intact bilaterally, no sensory deficits noted and deep tendon reflexes 2+ bilaterally [place] Coma Scale: document GCS findings Spontaneous Obeys Commands Oriented 15 Sensorium / Orientation: Negative for alert Motor Exam: strength 5/5 throughout Psych cooperative and activity/motor behavior normal Appearance: unkempt and other Patient was in hospital gown when I saw her. Attitude: calm Activity / Motor Behavior: appropriate eye contact and psychomotor slowing Speech: minimal and slow Mood & Affect: depressed Thought Process: loose associations Thought Content: suicidality and hallucination(s) Positive for auditory Attention / Concentration: attention grossly intact and concentration grossly intact Memory / Cognition: memory grossly intact Insight: fair Skin General Skin Exam: Negative for jaundice or pallor Lesions: no lesions Rashes: no rashes MDM MDM MDM Narrative Medical decision making narrative: Patient presents with exacerbation of her schizophrenia with auditory destinations that are telling her to commit suicide. Patient was medicated with her long-acting medicine. There is been no improvement. She cannot contract for safety. The [place] licensed social worker for the counseling center informing that she was pink slipped. Workup was undertaken to rule out any metabolic, infectious/medical reasons to prevent transfer to psychiatric facility. Lab Data Attestation: I reviewed the patient's lab results. Lab results narrative: CBC normal. BMP is remarkable for glucose of 156 with normal CO2 anion gap. Talk screen was negative. Alcohol is negative. Labs: Laboratory Results - last 24 hr 12/01/23 12/01/23 01:05 01:30 WBC 8.2 RBC 4.27 Hgb 13.2 Hct 38.5 MCV 90.2 MCH 30.9 MCHC 34.3 RDW Std Deviation 42.1 RDW Coeff of [place] 12.9 Plt Count 222 MPV 10.8 Immature Gran % (Auto) 0.900 Neut % (Auto) 52.6 Lymph % (Auto) 30.9 [place] % (Auto) 13.5 H Eos % (Auto) 1.6 Baso % (Auto) 0.5 Absolute Neuts (auto) 4.3 Absolute Lymphs (auto) 2.54 Nucleated RBC % 0 Sodium 138 Potassium 3.5 Chloride 102 Carbon Dioxide 29.0 Anion Gap 7 BUN 20 H Creatinine 0.82 Estim Creat Clear Calc 68.94 Est GFR (MDRD) Af Amer 92 Est GFR (MDRD) Non-Af 76 BUN/Creatinine Ratio 24.4 H Glucose 156 H Calcium 9.9 Urine Opiates Screen NEGATIVE Urine Methadone Screen NEGATIVE Ur Barbiturates Screen NEGATIVE Ur Phencyclidine Scrn NEGATIVE Ur Amphetamines Screen NEGATIVE MDMA (Ecstasy) Screen NEGATIVE U Benzodiazepines Scrn NEGATIVE Urine Cocaine Screen NEGATIVE U Cannabinoids Screen NEGATIVE Ur Drug Screen Comment Ethyl Alcohol < 3.0 EKG Initial EKG: Attestation: I personally reviewed and interpreted this EKG as follows: Interpretation: Sinus Rhythm (Rate is 73. SC interval is 180 ms. Cures duration 90 ms and QT duration 102 ms. [place] is normal. There is artifact noted as well. There may be criteria for LVH.) Discharge Plan Triage Chief Complaint: Suicidal ED Provider: Rosalio Dos Santos Dx/Rx/DC Orders Clinical Impression: Auditory hallucinations, Diabetes, Suicidal ideation, Hypertension, Acute exacerbation of chronic schizophrenia Prescriptions: No Action metformin 500 MG tablet 500 mg PO BIDCM amlodipine 10 MG tablet 5 mg PO DAILY metoprolol succinate 25 MG tablet extended release 24 hr 25 mg PO BID fenofibrate nanocrystallized 48 MG tablet 48 mg PO DAILY Aspirin [Aspirin Ec] 81 MG Tablet.Dr 81 mg PO DAILY@0800 duloxetine 60 MG capsule,delayed release(DR/EC) 60 mg PO DAILY paliperidone palmitate 234 MG/1.5 ML syringe 1 applic SQ QMONTH benztropine 0.5 mg tablet 0.5 mg PO BID haloperidol 5 mg tablet 5 mg PO BID Primary Care Provider: Kiana Chavarria Referrals: Kiana Chavarria MD [Primary Care Provider] - Disposition Disposition: Psychiatric Hospital or Unit Discharge Location: [facility]
--- NOTE | 2023-12-01 04:11 | ED.RN ---
PT ACCEPTED AT [facility] [id number] SONAL MIRANDA 11AM
--- NOTE | 2023-12-01 09:58 | NURSING ---
PARDEEP DEWEY, [address] GREGORY NURSE TO NURSE [phone]
== END 2023-12-01 11:02 ==
PROVIDERS: Emergency Provider Emergency Medicine; PCP Internal Medicine; Visit Provider Emergency Medicine
DX: F20.9 Schizophrenia, unspecified (principal); E11.9 Type 2 diabetes mellitus without complications; F17.210 Nicotine dependence, cigarettes, uncomplicated; R45.851 Suicidal ideations; E66.9 Obesity, unspecified
CPT/HCPCS: 80048; 80307; 80320; 85025; 93005; 99284; G0480

== ENCOUNTER 2024-06-21 23:17 | Emergency (ER) | payer MEDICAID, SELFPAY ==
[2024-06-21 23:17] VITALS: BP 152/94; PULSE 88; RESP 18; TEMP 36.2; O2SAT 97; BMI 26.6
[2024-06-22] MEDS: Lidocaine 2% Viscous15 ML UDC 15 ML PO (00:59)
[2024-06-22] MEDS: Mag Hydrox/Al Hydrox/Simeth 30 ML UDC PO (00:59)
[2024-06-22 01:00] LABS: Absolute Lymphocyte Count 3.05 X10^3/uL (0.83-4.51); Absolute Neutrophil Count 3.5 X10^3/uL (2.0-7.7); Basophil# 0.05 X10^3/uL; Basophil% 0.7 % (0-1); Eosinophil# 0.16 X10^3/uL; Eosinophils% 2.1 % (0-5); Hematocrit 36.8 % (37-47); Hemoglobin 12.7 g/dL (12.0-15.0); Lymphocyte # 3.05 X10^3/ul (0.83-4.51); Lymphocyte % 39.8 % (19-41); Mean Corp Hgb Conc 34.5 g/dL (32-36); Mean Corpuscular Hgb 31.4 pg (27.0-32.0); Mean Corpuscular Volume 91.1 fL (81-99); Mean Platelet Vol. 10.5 fl (6.2-12.0); Monocyte# 0.87 X10^3/uL; Monocyte% 11.4 % (0-10); NRBC Flagged by Analyzer 0 % (0-5); Neutrophil # 3.51 X10^3/uL (2.7-7.7); Neutrophil % 45.7 % (47-70); Platelet Count 231 K/mm3 (150-450); RBC Distribution Width CV 12.5 % (11.6-14.6); RBC Distribution Width SD 41.8 fl (35.1-43.9); Red Blood Count 4.04 M/mm3 (4.2-5.4); White Blood Count 7.7 K/mm3 (4.4-11.0)
--- NOTE | 2024-06-22 01:15 | RAD_ITS ---
STUDY: X-RAY - ACUTE ABDOMINAL SERIES REASON FOR EXAM: Female, 58 years old patient with abdominal pain. TECHNIQUE: Single view of the chest. Supine, and erect view(s) of the abdomen were obtained. COMPARISON: Chest radiograph dated October 30, 2019. FINDINGS: Surgical clips are visible in the right axilla. The lungs are hyperexpanded. There is prominent bronchovascular markings greatest at the lung bases with what appears to be some interstitial thickening. There is cardiomegaly. Normal mediastinum and odalis. Normal visualized pulmonary arteries. There is atherosclerotic calcification of the aortic arch with tortuosity. There is a non-specific bowel gas pattern. There are surgical clips visible in the right upper quadrant and in the pelvis. There is no obvious organomegaly, mass, dilated bowel or pathologic calcifications. There are diffuse degenerative changes of the visualized spine. RAD/Acute Abdomen Inc Chest IMPRESSION: 1. Cardiomegaly and mild pulmonary congestion. 2. Nonspecific bowel gas pattern. Electronically Signed: Edna Vázquez MD at 1:56 EDT ,
[2024-06-22 01:17] VITALS: BP 148/81; PULSE 77; RESP 16; O2SAT 96
[2024-06-22 01:18] LABS: AST(SGOT) 11 U/L (15-37); Alanine Aminotransfer ALT/SGPT 20 U/L (13-56); Albumin, Serum 3.4 g/dL (3.2-5.0); Alkaline Phosphatase 46 U/L (45-117); Anion Gap 6 (5-15); BUN 13 mg/dL (7-18); BUN/Creat Ratio 19.1 RATIO (10-20); Bilirubin, Direct 0.14 mg/dL (0.00-0.30); Chloride 105 mmol/L (98-107); Creatinine, Serum 0.68 mg/dL (0.55-1.02); EST Glomerular Filtration Rate 93 mL/min (>60); Est Glom Filt Rate - Afr Amer 113 mL/min (>60); Estimated Creatinine Clearance 84.64 ml/min; Globulin 3.6 g/dL (2.2-4.2); Glucose 166 mg/dL (74-106); Lipase 33 U/L (13-75); Potassium 3.8 mmol/L (3.5-5.1); Sodium Level 138 mmol/L (136-145)
[2024-06-22] MEDS: Famotidine 200 MG/20 ML MDV 20 MG in 0.9% Normal Saline (Pres. free 8 ML 300 MG IV (01:23)
--- NOTE | 2024-06-22 02:21 | EX.ED.DYSGE1 ---
HPI History of Present Illness Chief Complaint: Abd Pain Informant: patient Narrative Narrative: Patient is a 58-year-old female with past medical history of schizophrenia bipolar disorder hypertension and diabetes. She states she has had 1 to 2 days of upper abdominal discomfort with nausea but denies any vomiting diarrhea or dysuria. She states she is taken [id number] medications without any symptom improvement and secondary to this comes in for evaluation [facility] Medical History Schizophrenia DM2 (diabetes mellitus, type 2) HTN (hypertension) Home Medications ?Medication ?Instructions ?Recorded ?Last Taken ?Type amlodipine 10 mg tablet 5 mg PO DAILY bp 01/16/20 07/31/20 History fenofibrate nanocrystallized 48 mg 48 mg PO DAILY cholesterol 01/16/20 07/31/20 History tablet metformin 500 mg tablet 500 mg PO BIDCM dm 01/16/20 07/31/20 History metoprolol succinate 25 mg 25 mg PO BID heart 01/16/20 Unknown History tablet,extended release 24 hr Aspirin [Aspirin Ec] 81 mg PO DAILY@0800 [facility] 11/23/20 Unknown History duloxetine 60 mg capsule,delayed 60 mg PO DAILY depression 11/23/20 Unknown History release paliperidone palmitate 234 mg/1.5 1 applic SQ QMONTH 01/10/21 Unknown History mL intramuscular syringe benztropine 0.5 mg tablet 0.5 mg PO BID 01/03/23 Unknown History haloperidol 5 mg tablet 5 mg PO BID 01/03/23 Unknown History famotidine 20 mg tablet (Pepcid) 20 mg PO BID 30 days #60 tabs 06/22/24 Unknown Rx sucralfate 1 gram tablet (Carafate) 1 g PO TID 14 days #42 tabs 06/22/24 Unknown Rx Allergy/AdvReac Type Severity Reaction Status Date / Time lisinopril Allergy Anaphylaxis Verified 06/21/24 23:21 lithium Allergy Anaphylaxis Verified 06/21/24 23:21 risperidone (From Risperdal) Allergy Anaphylaxis Verified 06/21/24 23:21 sertraline HCl (From Zoloft) Allergy Anaphylaxis Verified 06/21/24 23:21 divalproex sodium (From AdvReac Other Verified 06/21/24 23:21 Depakote) Surgical History History of ear surgery Hx of cholecystectomy Social History (Updated 12/01/23 @ 02:[address] Rosalio Dos Santos MD) household members: other details: intermediate Smoking Status: Current every day smoker tobacco type: cigarettes substance use type: does not use ROS ROS ED Constitutional Constitutional ED: Denies chills or fever(s) ENT ENT ED: Denies sore throat Cardiovascular Cardiovascular: Denies chest pain Respiratory/Chest Respiratory/Chest: Denies cough or dyspnea Gastrointestinal Gastrointestinal: Reports abdominal pain and nausea; Denies diarrhea or vomiting Genitourinary Genitourinary ED: Denies dysuria or hematuria Musculoskeletal Musculoskeletal: Denies myalgias Integumentary Denies rash Neurologic Neurologic: Denies headache(s) Hematologic/Lymphatic Hematologic/Lymphatic: Denies easy bleeding or easy bruising EXAM Physical Exam Const Vital Signs: 06/21/24 23:17 06/22/24 01:17 06/22/24 02:48 Temperature 97.2 F L 98.1 F Temperature Source Oral Pulse Rate 88 77 80 Respiratory Rate 18 16 16 Blood Pressure 152/94 H 148/81 H 143/77 H Blood Pressure Mean 113 103 99 Pulse Ox 97 96 99 Oxygen Delivery Method Room Air Room Air Positive well nourished, well developed and obese General Appearance ED: well developed; Negative for pallor Nutritional Appearance: obese HEENT Reports dry mucous membranes HEENT Narrative: No tongue or lip swelling no oral lesions no airway edema or compromise No findings of infection in the posterior pharynx Mouth ED: Yes dry mucous membranes Mouth: dry mucous membranes Eyes PERRL and EOMs intact bilaterally General Eye ED: Negative for scleral icterus Neck supple Neck Narrative: No nuchal rigidity or meningeal signs Resp normal respiratory effort and clear to auscultation bilaterally Cardio regular rate and regular rhythm Rate: other Other Details: Heart is regular rate and rhythm without murmurs rubs or gallop Radial and carotid pulses are equal and symmetric GI non-distended and no masses GI Narrative: Abdomen is soft and nondistended with normal active bowel sounds. There is scar tissue present in the periumbilical region consistent with history of previous umbilical hernia without obvious reoccurrence of hernia noted. There is pain with palpation in the midepigastric region but no voluntary guarding or rigidity. No pulsatile mass or fluid wave. Auscultation: normoactive bowel sounds Palpation: soft Back/Spine no CVA tenderness Extremity normal to inspection Neuro oriented x3, CN's II-XII intact bilaterally and no sensory deficits noted Sensorium / Orientation: alert Motor Exam: strength 5/5 throughout Psych Psych Narrative: Patient has a flat affect Skin no rashes or lesions noted General Skin Exam: Negative for jaundice or pallor MDM MDM MDM Narrative Medical decision making narrative: Patient arrived to the ER hypertensive but has a past medical history of this. She reported midepigastric upper abdominal pain for the past 1 to 2 days. She reports previous cholecystectomy and denies alcohol use therefore my concern for acute pancreatitis is low. By exam there is no obvious reoccurrence of her periumbilical hernia. Bowel sounds are normal active and she is not distended so I have low concern for ileus versus obstruction. I do feel that her symptoms are most likely related to gastritis as she smokes and reports she drinks a large amount of soda and caffeine. In order to ensure that there is no signs of acute kidney injury pancreatitis or electrolyte abnormality I do like to perform basic labs and in order to ensure there is no perforation or signs of obstruction I did perform an acute abdominal series. Labs revealed no clinically significant findings and x-ray revealed a nonspecific nonobstructive bowel gas pattern without free air. After receiving IV Pepcid and a GI cocktail patient reported resolution of her pain and her abdomen remains soft and nontender on repeat evaluation. Therefore do not feel there is need for further workup and patient can be put on Pepcid and Carafate for home but is otherwise safe for discharge History & Record Review Discussion w/independent historian: Patient Lab Data Attestation: I reviewed the patient's lab results. Labs: Laboratory Results - last 24 hr 06/22/24 00:50 WBC 7.7 RBC 4.04 L Hgb 12.7 Hct 36.8 L MCV 91.1 MCH 31.4 MCHC 34.5 RDW Std Deviation 41.8 RDW Coeff of [place] 12.5 Plt Count 231 MPV 10.5 Immature Gran % (Auto) 0.300 Neut % (Auto) 45.7 L Lymph % (Auto) 39.8 [place] % (Auto) 11.4 H Eos % (Auto) 2.1 Baso % (Auto) 0.7 Absolute Neuts (auto) 3.5 Absolute Lymphs (auto) 3.05 Nucleated RBC % 0 Sodium 138 Potassium 3.8 Chloride 105 Carbon Dioxide 28.0 Anion Gap 6 BUN 13 Creatinine 0.68 Estim Creat Clear Calc 84.64 Est GFR (MDRD) Af Amer 113 Est GFR (MDRD) Non-Af 93 BUN/Creatinine Ratio 19.1 Glucose 166 H Calcium 10.0 Total Bilirubin 0.40 Direct Bilirubin 0.14 AST 11 L ALT 20 Alkaline Phosphatase 46 Total Protein 7.0 Albumin 3.4 Globulin 3.6 Lipase 33 Radiography Diagnostic Testing: Clinical Impression(s) from Imaging Studies Acute Abdomen Series 06/22/24 01:15 IMPRESSION: 1. Cardiomegaly and mild pulmonary congestion. 2. Nonspecific bowel gas pattern. Electronically Signed: Edna Vázquez MD at 1:56 EDT Reading Location ID and State: [address] [place] [address] , Service support , Acute abdominal series with 1 view chest as interpreted by the emergency medicine physician reveals a nonspecific nonobstructive bowel gas pattern without findings of perforation and chest x-ray component reveals cardiomegaly without infiltrate pneumothorax or pleural effusion. Discharge Plan Triage Chief Complaint: Abd Pain ED Provider: Holger Mullen Dx/Rx/DC Orders Clinical Impression: Gastritis, Schizophrenia, Hypertension, Diabetes Instructions: ED Gastritis (Adult) Prescriptions: New famotidine [Pepcid] 20 mg tablet 20 mg PO BID 30 Days Qty: 60 0RF sucralfate [Carafate] 1 gram tablet 1 g PO TID 14 Days Qty: 42 0RF No Action metformin 500 MG tablet 500 mg PO BIDCM amlodipine 10 MG tablet 5 mg PO DAILY metoprolol succinate 25 MG tablet extended release 24 hr 25 mg PO BID fenofibrate nanocrystallized 48 MG tablet 48 mg PO DAILY Aspirin [Aspirin Ec] 81 MG Tablet.Dr 81 mg PO DAILY@0800 duloxetine 60 MG capsule,delayed release(DR/EC) 60 mg PO DAILY paliperidone palmitate 234 MG/1.5 ML syringe 1 applic SQ QMONTH benztropine 0.5 mg tablet 0.5 mg PO BID haloperidol 5 mg tablet 5 mg PO BID Primary Care Provider: Kiana Chavarria Referrals: Kiana Chavarria MD [Primary Care Provider] - Print Language: [place]se Disposition Disposition: Home, Self Care Discharge Date/Time: 06/22/24 03:21
--- NOTE | 2024-06-22 02:37 | NURSING ---
Pt dc home. Guardian called, notified of need for ride home. She is looking for a way to arrange this.
[2024-06-22 02:48] VITALS: BP 143/77; PULSE 80; RESP 16; TEMP 36.7; O2SAT 99
== END 2024-06-22 03:21 | disposition home or self-care (01) ==
PROVIDERS: Emergency Provider Emergency Medicine; PCP Internal Medicine; Visit Provider Emergency Medicine
DX: K29.70 Gastritis, unspecified, without bleeding (principal); F20.9 Schizophrenia, unspecified; E11.9 Type 2 diabetes mellitus without complications; I10 Essential (primary) hypertension; E66.9 Obesity, unspecified; F17.210 Nicotine dependence, cigarettes, uncomplicated; Z68.26 Body mass index [BMI] 26.0-26.9, adult; Z79.82 Long term (current) use of aspirin; Z79.84 Long term (current) use of oral hypoglycemic drugs; Z79.899 Other long term (current) drug therapy
CPT/HCPCS: 74022; 80048; 80076; 83690; 85025; 96374; 99284; A4216; J3490

== ENCOUNTER 2024-07-26 08:32 | Emergency (ER) | payer MEDICAID, SELFPAY ==
[2024-07-26 08:34] VITALS: BP 151/91; PULSE 91; RESP 18; TEMP 36.6; O2SAT 95; BMI 26.8
[2024-07-26 08:36] VITALS: BP 151/91; PULSE 91; RESP 18; TEMP 37.4; O2SAT 95
--- NOTE | 2024-07-26 08:40 | EDS_ITS ---
HPI History of Present Illness Chief Complaint: General Illness [facility] Medical History Schizophrenia DM2 (diabetes mellitus, type 2) HTN (hypertension) Home Medications ?Medication ?Instructions ?Recorded ?Last Taken ?Type amlodipine 10 mg tablet 5 mg PO DAILY bp 01/16/20 07/31/20 History fenofibrate nanocrystallized 48 mg 48 mg PO DAILY cholesterol 01/16/20 07/31/20 History tablet metformin 500 mg tablet 500 mg PO BIDCM dm 01/16/20 07/31/20 History metoprolol succinate 25 mg 25 mg PO BID heart 01/16/20 Unknown History tablet,extended release 24 hr Aspirin [Aspirin Ec] 81 mg PO DAILY@0800 [facility] 11/23/20 Unknown History duloxetine 60 mg capsule,delayed 60 mg PO DAILY depression 11/23/20 Unknown History release paliperidone palmitate 234 mg/1.5 1 applic SQ QMONTH 01/10/21 Unknown History mL intramuscular syringe benztropine 0.5 mg tablet 0.5 mg PO BID 01/03/23 Unknown History haloperidol 5 mg tablet 5 mg PO BID 01/03/23 Unknown History famotidine 20 mg tablet (Pepcid) 20 mg PO BID 30 days #60 tabs 06/22/24 Unknown Rx sucralfate 1 gram tablet (Carafate) 1 g PO TID 14 days #42 tabs 06/22/24 Unknown Rx Allergy/AdvReac Type Severity Reaction Status Date / Time lisinopril Allergy Anaphylaxis Verified 07/26/24 08:34 lithium Allergy Anaphylaxis Verified 07/26/24 08:34 risperidone (From Risperdal) Allergy Anaphylaxis Verified 07/26/24 08:34 sertraline HCl (From Zoloft) Allergy Anaphylaxis Verified 07/26/24 08:34 divalproex sodium (From AdvReac Other Verified 07/26/24 08:34 Depakote) Surgical History History of ear surgery Hx of cholecystectomy Social History (Updated 12/01/23 @ 02:[address] Rosalio Dos Santos MD) household members: other details: prison Smoking Status: Current every day smoker tobacco type: cigarettes substance use type: does not use EXAM Physical Exam Const Vital Signs: 07/26/24 08:34 07/26/24 08:36 07/26/24 08:37 Temperature 97.8 F 99.3 F H Temperature Source Oral Oral Pulse Rate 91 91 Respiratory Rate 18 18 Respiratory Effort Normal Respiratory Pattern Normal Blood Pressure 151/91 H 151/91 H Blood Pressure Mean 111 111 Pulse Ox 95 95 Oxygen Delivery Method Room Air [place] [facility] [place]arr[place] Medical decision making narrative: HISTORY OF PRESENT ILLNESS: 58-year-old female presents with general illness. Notes cough started yesterday. Notes lungs were when she coughs. Notes throat irritation as well. REVIEW OF SYSTEMS: Pertinent positives: Cough, sore throat Pertinent negatives: Chest pain, fever PHYSICAL EXAM: Nursing triage notes reviewed, Vital signs reviewed Constitutional: please see [facility] HENT: MMM Eyes: Pupils equal round and reactive to light, Extraocular muscles intact Neck: No stridor, no JVD, full neck ROM Lungs: Clear to auscultation, No wheezing or rales. No increased work of breathing, no conversational dyspnea, no accessory muscle use, no nasal flaring. No respiratory distress noted Heart: Regular rate and rhythm, No murmurs, No rubs and No gallops, 2+ distal pulses (radial, femoral, posterior tibial) in all extremities Abdomen: Soft, there is no tenderness, rigidity, rebound or guarding, no obvious peritoneal signs, no palpable pulsatile abdominal masses, no auscultated abdominal bruit : No CVAT Extremities: No edema Neuro: No focal neurological deficits, cranial nerves II through XII intact, 5/5 strength in all extremities. Intact sensation to light touch in all extremities, 2+ reflexes bilateral patella tendons. Normal gait. No ataxia. Skin: No rash or lesions noted Psych, normal mood, normal affect, goal-directed thought process MEDICAL DECISION MAKING: Chief Complaint: Cough, sore throat External records reviewed: Reviewed allergies, problem list, vital signs, current medications Factors affecting care: Hypertension, schizophrenia, mood disorder, bipolar disorder Social determinants of health: none History obtained from others: none Consults: none [facility] Narrative: The patient was initially hemodynamically stable, afebrile and nontoxic- appearing. Exam without focus of infection, throat was clear, no exudates, lungs were clear. Abdomen was soft and nontender. The patient complained of chest pain, chest tightness. I offered the patient a cardiopulmonary workup including chest x-ray, labs, troponin, EKG. Patient was alert and orient x 3 and refused additional testing at this time. She stated she is not sure why they called the squad she just did not feel well this morning. She stated she would not want to go through with additional testing at this time. She states she just wanted a ride up to this part of town. She was comfortable not undergoing further labs or images. She states should return if symptoms change or worsen. I have recommended testing, ED observation, but the patient refuses. The risks (including but not limited to suffering and ) as well as the benefits were explained to the patient. Questions were sought and answered, the patient voiced understanding and accepts these risks. I have encouraged the patient to return to have their evaluation completed as we are glad to do so. Patient had capacity to make his or her own medical decisions. Patient was alert and orient x3 and of sound mind at time of discussion. I have also instructed the patient on the importance of follow-up and to return for any worsening or worrisome concerns. The patient appears competent to make medical decisions at this time. The patient and/or family, caregivers express understanding. The patient and/or family, caregivers agrees with the plan. Shared decision making: I will have a discussion with the patient and or visitors regarding risk/benefits of further testing or admission. They will be made aware of of the risk/benefits inherent in this decision they will be given the opportunity to voice understanding. Total critical care time today provided was at least 0 minutes. This excludes separately billable procedures. Critical care time (if documented) is secondary to the patient having high probability of clinically significant/life threatening deterioration in the patient's condition which required my urgent intervention. Impression: 1. Cough 2. Viral URI Dispo: Discharge home This note was generated with [employer] dictation software. It may contain incorrect words, spelling, and punctuation that were not noted in review of the chart prior to signing. Discharge Plan Triage Chief Complaint: General Illness ED Provider: Jason Rodrigues Dx/Rx/DC Orders Clinical Impression: Cough Instructions: ED URI, Viral, No Abx (Adult) Prescriptions: No Action metformin 500 MG tablet 500 mg PO BIDCM amlodipine 10 MG tablet 5 mg PO DAILY metoprolol succinate 25 MG tablet extended release 24 hr 25 mg PO BID fenofibrate nanocrystallized 48 MG tablet 48 mg PO DAILY Aspirin [Aspirin Ec] 81 MG Tablet.Dr 81 mg PO DAILY@0800 duloxetine 60 MG capsule,delayed release(DR/EC) 60 mg PO DAILY paliperidone palmitate 234 MG/1.5 ML syringe 1 applic SQ QMONTH benztropine 0.5 mg tablet 0.5 mg PO BID haloperidol 5 mg tablet 5 mg PO BID famotidine [Pepcid] 20 mg tablet 20 mg PO BID 30 Days Qty: 60 0RF sucralfate [Carafate] 1 gram tablet 1 g PO TID 14 Days Qty: 42 0RF Primary Care Provider: Kiana Chavarria Referrals: Kiana Chavarria MD [Primary Care Provider] - Activity Restrictions/Additional Instructions: Thank you for trusting us with your care today! Please take Tylenol (2 pills, 650 mg), ibuprofen (2 pills, 400 mg) every 6 hours as needed for pain and fever control. Please return to the emergency department if your symptoms change or worsen. Please follow with your primary care physician for further outpatient evaluation and management. Print Language: Egyptian Disposition Disposition: Home, Self Care
--- NOTE | 2024-07-26 09:00 | ED.RN ---
pt tells dr. antonio she wants to leave. d/c paperwork given. pt's senior care notified. they are sending someone to get her.
== END 2024-07-26 09:19 | disposition home or self-care (01) ==
LOC: ED 09:10
PROVIDERS: Emergency Provider Emergency Medicine; PCP Internal Medicine; Visit Provider Emergency Medicine
DX: J06.9 Acute upper respiratory infection, unspecified (principal); E11.9 Type 2 diabetes mellitus without complications; R07.89 Other chest pain; I10 Essential (primary) hypertension; F17.210 Nicotine dependence, cigarettes, uncomplicated; Z79.82 Long term (current) use of aspirin; Z79.84 Long term (current) use of oral hypoglycemic drugs; Z79.899 Other long term (current) drug therapy
CPT/HCPCS: 99284

== ENCOUNTER 2025-01-05 00:11 | Emergency (ER) | payer MEDICAID, SELFPAY ==
[2025-01-05 00:11] VITALS: BP 161/85; PULSE 84; RESP 16; TEMP 36.6; O2SAT 98; BMI 25.6
--- NOTE | 2025-01-05 00:32 | EDS_ITS ---
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 History of bipolar schizophrenia followed by psychiatry Dr. Salmeron last seen 2 months ago with bimonthly visits. Appointments coming Sunday. She reports had plans for marriage this morning [facility] when her fianc? did not show up. She states she came more depressed increasing thoughts of hurting herself. She is diabetic reporting she was going to drink [employer] to . She states last time she did anything to herself was in the 90s. She called crisis, PD was called to pick her up. She states since discussing with crisis she does not feel suicidal at this time. Denies any alcohol use denies recreational drug us e. Denies any hallucinations. [facility] Medical History Schizophrenia DM2 (diabetes mellitus, type 2) HTN (hypertension) Home Medications ?Medication ?Instructions ?Recorded ?Last Taken ?Type amlodipine 10 mg tablet 5 mg PO DAILY bp 01/16/20 History fenofibrate nanocrystallized 48 mg 48 mg PO DAILY chol esterol 01/16/20 07/31/20 History tablet metformin 500 mg tablet 500 mg PO QHS dm 01/16/20 History metoprolol succinate 25 mg 25 mg PO BID heart 01/16/20 Unknown History tablet,extended release 24 hr Aspirin [Aspirin Ec] 81 mg PO DAILY@0800 heart he alth 11/23/20 Unknown History duloxetine 60 mg capsule,delayed 60 mg PO DAILY depres nicky 11/23/20 Unknown History release paliperidone palmitate 234 mg/1.5 1 applic SQ QMONTH 0 01/10/21 Unknown History mL intramuscular syringe benztropine 0.5 mg tablet 1 mg PO BID 01/03/23 Unknown History haloperidol 5 mg tablet 10 mg PO BID 01/03/23 Unknow n History famotidine 20 mg tablet (Pepcid) 20 mg PO BID 30 days #60 tabs 06/22/24 Unknown Rx metformin 500 mg tablet 1,000 mg PO DAILY 01/05/25 U nknown History zaleplon 5 mg capsule 5 mg PO QHS 01/05/25 Unknown History Allergy/AdvReac Type Severity Reaction Status Date / Time codeine Allergy PT UNSURE Verified 01/05/25 00:19 OF REACTION lisinopril Allergy Anaphylaxis Verified 01/05/25 00:19 lithium Allergy Anaphylaxis Verified 01/05/25 00:19 risperidone (From Risperdal) Allergy Anaphylaxis Verified 01/05/25 00:19 sertraline HCl (From Zoloft) Allergy Anaphylaxis Verified 01/05/25 00:19 divalproex sodium (From AdvReac Other Verified 01/05/25 00:19 Depakote) Surgical History History of ear surgery Hx of cholecystectomy Social History household members: other details: skilled nursing Smoking Status: Current every day smoker tobacco type: cigarettes substance use type: does not use ROS ROS ED Constitutional Constitutional ED: Denies chills, fever(s) or sweats ENT ENT ED: Denies sore throat Cardiovascular Cardiovascular: Denies chest pain, leg edema, palpitations or racing heartbeat Respiratory/Chest Respiratory/Chest: Denies cough, dyspnea or dyspnea on exertion Gastrointestinal Gastrointestinal: Denies abdominal pain, diarrhea, nausea or vomiting Genitourinary Genitourinary ED: Denies dysuria, hematuria or urinary frequency Musculoskeletal Musculoskeletal: Denies back pain, extremity pain or neck pain Integumentary Denies rash or wounds Neurologic Neurologic: Denies headache(s), paresthesias or weakness Psychiatric Psychiatric: Reports other Details: Currently denies any suicidal thoughts. EXAM Physical Exam Const Vital Signs: 01/05/25 00:11 Temperature 98 F Temperature Source Oral Pulse Rate 84 Respiratory Rate 16 Blood Pressure 161/85 H Blood Pressure Mean 110 Pulse Ox 98 Positive well nourished and well developed General Appearance ED: well developed and NAD HEENT Reports moist mucous membranes normocephalic and atraumatic Eyes General Eye ED: Yes normal appearance of both eyes Neck full ROM Chest Wall Chest: Negative for tenderness Resp normal respiratory effort and normal air movement Effort and Inspection: symmetric chest movement; Negative for respiratory distress Cardio regular rate, regular rhythm and no murmurs Peripheral Pulses: pulses 2+ throughout GI normal to inspection, nondistended, normoactive bowel sounds and non-tender Palpation: Negative for guarding or rebound tenderness present Extremity normal to inspection General Extremety ED: Negative for edema or tenderness General Extremity: Negative for edema Neuro oriented x3 and no sensory deficits noted Sensorium / Orientation: awake and alert Psych Psych Narrative: Nontoxic, denies any current suicidal or homicidal ideations. Skin no rashes or lesions noted and no wounds MDM MDM MDM Narrative Medical decision making narrative: Interventions / MDM: Differential diagnosis: Schizophrenia, bipolar, suicidal ideation Diagnosis considered but do not suspect: N/A My EKG interpretation: N/A Imaging independently reviewed and interpreted by myself: N/A External documents reviewed: N/A Test considered but not ordered:N/A ED course: Vital stable nontoxic no complaints this time. Denies any current suicidal ideations. She felt better after speaking with crisis. However patient sent here after speaking with crisis on the phone by police. Will have medical clearance labs and have a crisis evaluation in the ED. 0130: Patient eval by crisis counselor. She was evaluated seeing counselor past Sunday suicidal ideations. She is at the half-way there was no marriage ceremony. Patient has her delusions with her schizophrenia. Currently not suicidal safety plan was made. She has a follow-up with her psychiatrist coming Sunday for which she will keep. She will be discharged back to the half-way. Re-evaluation: stable Disposition discussed with patient/family/significant other: Patient Case discussed with consulting clinician: Crisis This note was generated with [employer] dictation software. It may contain incorrect words, spelling, and punctuation that were not noted in checking the note before signing. Lab Data Attestation: I reviewed the patient's lab results. Labs: Laboratory Results - last 24 hr 01/05/25 00:37 WBC 7.7 RBC 4.44 Hgb 14.0 Hct 39.8 MCV 89.6 MCH 31.5 MCHC 35.2 RDW Std Deviation 41.9 RDW Coeff of [place] 12.6 Plt Count 244 MPV 10.3 Immature Gran % (Auto) 0.100 Neut % (Auto) 38.3 L Lymph % (Auto) 48.0 H [place] % (Auto) 11.2 H Eos % (Auto) 1.6 Baso % (Auto) 0.8 Absolute Neuts (auto) 2.9 Absolute Lymphs (auto) 3.68 Nucleated RBC % 0 Sodium 135 Potassium 3.8 Chloride 99 Carbon Dioxide 26.8 Anion Gap 9 BUN 12 Creatinine 0.75 Estim Creat Clear Calc 74.49 Est GFR (MDRD) Non-Af 91 BUN/Creatinine Ratio 15.9 Glucose 142 H Calcium 10.4 Ethyl Alcohol < 10.1 Discharge Plan Triage Chief Complaint: Mental Health ED Provider: Silverio Noel Dx/Rx/DC Orders Clinical Impression: Schizophrenia, Bipolar affect, depressed, Suicide ideation Instructions: Suicide Warning What To Do, ED Bipolar Disorder, ED Schizoaffective Disorder Prescriptions: No Action metformin 500 MG tablet 500 mg PO QHS amlodipine 10 MG tablet 5 mg PO DAILY metoprolol succinate 25 MG tablet extended release 24 hr 25 mg PO BID fenofibrate nanocrystallized 48 MG tablet 48 mg PO DAILY Aspirin [Aspirin Ec] 81 MG Tablet.Dr 81 mg PO DAILY@0800 duloxetine 60 MG capsule,delayed release(DR/EC) 60 mg PO DAILY paliperidone palmitate 234 MG/1.5 ML syringe 1 applic SQ QMONTH benztropine 0.5 mg tablet 1 mg PO BID haloperidol 5 mg tablet 10 mg PO BID famotidine [Pepcid] 20 mg tablet 20 mg PO BID 30 Days Qty: 60 0RF zaleplon 5 mg capsule 5 mg PO QHS Rx Instructions: must avoid high-fat meal/food immediately before taking dose metformin 500 mg tablet 1,000 mg PO DAILY Primary Care Provider: Kiana Chavarria Referrals: Kiana Chavarria MD [Primary Care Provider] - Alicia Salazar MD [Non-Staff] - Keep Ezequiel appointment Activity Restrictions/Additional Instructions: You are seen by crisis. Safety plan. Keep your appointment with Dr. Salazar on Sunday. Print Language: Setswana Disposition Disposition: Home, Self Care Discharge Date/Time: 01/05/25 01:18
[2025-01-05 00:45] LABS: Absolute Lymphocyte Count 3.68 X10^3/uL (0.83-4.51); Absolute Neutrophil Count 2.9 X10^3/uL (2.0-7.7); Basophil# 0.06 X10^3/uL; Basophil% 0.8 % (0-1); Eosinophil# 0.12 X10^3/uL; Eosinophils% 1.6 % (0-5); Hematocrit 39.8 % (37-47); Lymphocyte # 3.68 X10^3/ul (0.83-4.51); Mean Corp Hgb Conc 35.2 g/dL (32-36); Mean Corpuscular Hgb 31.5 pg (27.0-32.0); Mean Corpuscular Volume 89.6 fL (81-99); Mean Platelet Vol. 10.3 fl (6.2-12.0); Monocyte# 0.86 X10^3/uL; Monocyte% 11.2 % (0-10); NRBC Flagged by Analyzer 0 % (0-5); Neutrophil # 2.94 X10^3/uL (2.7-7.7); Neutrophil % 38.3 % (47-70); Platelet Count 244 K/mm3 (150-450); RBC Distribution Width CV 12.6 % (11.6-14.6); RBC Distribution Width SD 41.9 fl (35.1-43.9); Red Blood Count 4.44 M/mm3 (4.2-5.4); White Blood Count 7.7 K/mm3 (4.4-11.0)
[2025-01-05 01:08] LABS: Anion Gap 9 (5-15); BUN 12 mg/dL (4-19); BUN/Creat Ratio 15.9 RATIO (10-20); Calcium,Total 10.4 mg/dL (7.6-11.0); Carbon Dioxide 26.8 mmol/L (21.0-32.0); Chloride 99 mmol/L (98-108); Creatinine, Serum 0.75 mg/dL (0.70-1.20); EST Glomerular Filtration Rate 91 (>60); Estimated Creatinine Clearance 74.49 ml/min (50-250); Glucose 142 mg/dL (70-99); Potassium 3.8 mmol/L (3.3-5.1); Sodium Level 135 mmol/L (133-145)
[2025-01-05 01:10] LABS: Alcohol, Blood (Medical)-Serum < 10.1 mg/dL (<=10.0)
== END 2025-01-05 01:18 | disposition home or self-care (01) ==
PROVIDERS: Emergency Provider Emergency Medicine; PCP Internal Medicine; Visit Provider Emergency Medicine
DX: R45.851 Suicidal ideations (principal); F25.0 Schizoaffective disorder, bipolar type; E11.9 Type 2 diabetes mellitus without complications; F32.A Depression, unspecified; I10 Essential (primary) hypertension; F17.210 Nicotine dependence, cigarettes, uncomplicated; Z79.84 Long term (current) use of oral hypoglycemic drugs; Z79.899 Other long term (current) drug therapy
CPT/HCPCS: 80048; 82077; 85025; 99282

== ENCOUNTER 2025-01-06 10:29 | Emergency (ER) | payer MEDICAID, SELFPAY ==
[2025-01-06 10:30] VITALS: BP 143/96; PULSE 88; RESP 14; TEMP 36.3; O2SAT 98; BMI 25.2
[2025-01-06 11:51] LABS: Absolute Lymphocyte Count 1.97 X10^3/uL (0.83-4.51); Absolute Neutrophil Count 4.8 X10^3/uL (2.0-7.7); Basophil# 0.04 X10^3/uL; Basophil% 0.5 % (0-1); Eosinophil# 0.04 X10^3/uL; Eosinophils% 0.5 % (0-5); Hematocrit 42.4 % (37-47); Hemoglobin 14.9 g/dL (12.0-15.0); Lymphocyte # 1.97 X10^3/ul (0.83-4.51); Lymphocyte % 26.6 % (19-41); Mean Corp Hgb Conc 35.1 g/dL (32-36); Mean Corpuscular Hgb 31.4 pg (27.0-32.0); Mean Corpuscular Volume 89.5 fL (81-99); Mean Platelet Vol. 10.6 fl (6.2-12.0); Monocyte# 0.53 X10^3/uL; Monocyte% 7.2 % (0-10); NRBC Flagged by Analyzer 0 % (0-5); Neutrophil % 64.9 % (47-70); Platelet Count 243 K/mm3 (150-450); RBC Distribution Width CV 12.8 % (11.6-14.6); RBC Distribution Width SD 42.4 fl (35.1-43.9); Red Blood Count 4.74 M/mm3 (4.2-5.4); White Blood Count 7.4 K/mm3 (4.4-11.0)
[2025-01-06 12:21] LABS: Anion Gap 11 (5-15); BUN 12 mg/dL (4-19); BUN/Creat Ratio 15.3 RATIO (10-20); Calcium,Total 10.4 mg/dL (7.6-11.0); Carbon Dioxide 24.1 mmol/L (21.0-32.0); Chloride 100 mmol/L (98-108); Creatinine, Serum 0.81 mg/dL (0.70-1.20); EST Glomerular Filtration Rate 83 (>60); Estimated Creatinine Clearance 68.56 ml/min (50-250); Glucose 143 mg/dL (70-99); Potassium 4.3 mmol/L (3.3-5.1); Sodium Level 135 mmol/L (133-145)
[2025-01-06 12:22] LABS: Alcohol, Blood (Medical)-Serum < 10.1 mg/dL (<=10.0)
--- NOTE | 2025-01-06 12:44 | ED.RN ---
legal guardian Kerry cell phone number [phone]
--- NOTE | 2025-01-06 14:07 | EX.ED.VIS.PS ---
HPI HPI - Psych History of Present Illness Chief Complaint: Suicidal Informant: patient Narrative Narrative: Patient states she is depressed because her fianc? lives in [place] and he will not come and see her very much. This has led to suicidal thoughts. Has felt depressed about all of this for a while. No suicidal plan, yet. States she does not have a counselor or therapist. She may be on psychiatric medication but she does not know her medications well. Coming here on her own. She denies hallucinations or delusions. Denies any physical illness or injury recently. [facility] Medical History Schizophrenia DM2 (diabetes mellitus, type 2) HTN (hypertension) Home Medications ?Medication ?Instructions ?Recorded ?Last Taken ?Type amlodipine 10 mg tablet 5 mg PO DAILY bp 01/16/20 07/31/20 History fenofibrate nanocrystallized 48 mg 48 mg PO DAILY cholesterol 01/16/20 07/31/20 History tablet metformin 500 mg tablet 500 mg PO QHS dm 01/16/20 07/31/20 History metoprolol succinate 25 mg 25 mg PO BID heart 01/16/20 Unknown History tablet,extended release 24 hr Aspirin [Aspirin Ec] 81 mg PO DAILY@0800 heart health 11/23/20 Unknown History duloxetine 60 mg capsule,delayed 60 mg PO DAILY depression 11/23/20 Unknown History release paliperidone palmitate 234 mg/1.5 1 applic SQ QMONTH 01/10/21 Unknown History mL intramuscular syringe benztropine 0.5 mg tablet 1 mg PO BID 01/03/23 Unknown History haloperidol 5 mg tablet 10 mg PO BID 01/03/23 Unknown History famotidine 20 mg tablet (Pepcid) 20 mg PO BID 30 days #60 tabs 06/22/24 Unknown Rx metformin 500 mg tablet 1,000 mg PO DAILY 01/05/25 Unknown History zaleplon 5 mg capsule 5 mg PO QHS 01/05/25 Unknown History Allergy/AdvReac Type Severity Reaction Status Date / Time codeine Allergy PT UNSURE Verified 01/06/25 10:33 OF REACTION lisinopril Allergy Anaphylaxis Verified 01/06/25 10:33 lithium Allergy Anaphylaxis Verified 01/06/25 10:33 risperidone (From Risperdal) Allergy Anaphylaxis Verified 01/06/25 10:33 sertraline HCl (From Zoloft) Allergy Anaphylaxis Verified 01/06/25 10:33 divalproex sodium (From AdvReac Other Verified 01/06/25 10:33 Depakote) Surgical History History of ear surgery Hx of cholecystectomy Social History household members: other details: detention Smoking Status: Current every day smoker tobacco type: cigarettes substance use type: does not use ROS ROS ED Constitutional Constitutional ED: Denies chills or fever(s) Eyes Eyes: Denies change in vision or diplopia ENT ENT ED: Denies rhinorrhea or sore throat Cardiovascular Cardiovascular: Denies chest pain or palpitations Respiratory/Chest Respiratory/Chest: Denies cough or dyspnea Gastrointestinal Gastrointestinal: Denies abdominal pain, diarrhea, nausea or vomiting Genitourinary Genitourinary ED: Denies dysuria or hematuria Musculoskeletal Musculoskeletal: Denies back pain or neck pain Integumentary Denies abscess or rash Neurologic Neurologic: Denies headache(s), paresthesias or weakness Psychiatric Psychiatric: Reports depression, suicidal ideation and suicidal thoughts; Denies homicidal ideation EXAM Physical Exam Const Vital Signs: 01/06/25 10:30 Temperature 97.4 F L Temperature Source Oral Pulse Rate 88 Respiratory Rate 14 Blood Pressure 143/96 H Blood Pressure Mean 111 Pulse Ox 98 Oxygen Delivery Method Room Air Positive well nourished, well developed and obese General Appearance ED: well developed and NAD Nutritional Appearance: obese HEENT Reports moist mucous membranes HEENT Narrative: Edentulous. normocephalic and atraumatic Eyes PERRL and EOMs intact bilaterally General Eye ED: Negative for scleral icterus Neck no lymphadenopathy and supple Resp normal respiratory effort and clear to auscultation bilaterally Cardio no murmurs Rate: regular rate Rhythm: regular rhythm GI non-tender and non-distended Auscultation: normoactive bowel sounds Palpation: soft Back/Spine no CVA tenderness and normal ROM Extremity normal to inspection General Extremety ED: Negative for edema General Extremity: Negative for edema Neuro oriented x3, CN's II-XII intact bilaterally, no sensory deficits noted and gait normal Sensorium / Orientation: alert Motor Exam: strength 5/5 throughout Psych mental status grossly normal, thought process normal, cooperative, activity/motor behavior normal and denies homicidal ideation Mood & Affect: depressed Thought Content: suicidality Skin Lesions: no lesions Rashes: no rashes MDM MDM MDM Narrative Medical decision making narrative: Labs noted, alcohol negative, she states she does not use alcohol or any drugs and her screen is negative. She is medically cleared and vital signs are normal. Will have staff consult social work for further evaluation. Lab Data Attestation: I reviewed the patient's lab results. Labs: Laboratory Results - last 24 hr 01/06/25 01/06/25 11:35 14:00 WBC 7.4 RBC 4.74 Hgb 14.9 Hct 42.4 MCV 89.5 MCH 31.4 MCHC 35.1 RDW Std Deviation 42.4 RDW Coeff of [place] 12.8 Plt Count 243 MPV 10.6 Immature Gran % (Auto) 0.300 Neut % (Auto) 64.9 Lymph % (Auto) 26.6 [place] % (Auto) 7.2 Eos % (Auto) 0.5 Baso % (Auto) 0.5 Absolute Neuts (auto) 4.8 Absolute Lymphs (auto) 1.97 Nucleated RBC % 0 Sodium 135 Potassium 4.3 Chloride 100 Carbon Dioxide 24.1 Anion Gap 11 BUN 12 Creatinine 0.81 Estim Creat Clear Calc 68.56 Est GFR (MDRD) Non-Af 83 BUN/Creatinine Ratio 15.3 Glucose 143 H Calcium 10.4 Urine Opiates Screen NEGATIVE U Buprenorphine Qual NEGATIVE Ur Oxycodone Screen NEGATIVE Urine Methadone Screen NEGATIVE Urine Fentanyl Screen NEGATIVE Ur Barbiturates Screen NEGATIVE Ur Phencyclidine Scrn NEGATIVE Ur Amphetamines Screen NEGATIVE U Benzodiazepines Scrn NEGATIVE Urine Cocaine Screen NEGATIVE U Cannabinoids Screen NEGATIVE Ethyl Alcohol < 10.1 Management Discussion w/another healthcare provider: farmworker animal/Case management Discharge Plan Triage Chief Complaint: Suicidal ED Provider: Jad Jones Dx/Rx/DC Orders Clinical Impression: Suicidal ideation, Schizophrenia Prescriptions: No Action metformin 500 MG tablet 500 mg PO QHS amlodipine 10 MG tablet 5 mg PO DAILY metoprolol succinate 25 MG tablet extended release 24 hr 25 mg PO BID fenofibrate nanocrystallized 48 MG tablet 48 mg PO DAILY Aspirin [Aspirin Ec] 81 MG Tablet.Dr 81 mg PO DAILY@0800 duloxetine 60 MG capsule,delayed release(DR/EC) 60 mg PO DAILY paliperidone palmitate 234 MG/1.5 ML syringe 1 applic SQ QMONTH benztropine 0.5 mg tablet 1 mg PO BID haloperidol 5 mg tablet 10 mg PO BID famotidine [Pepcid] 20 mg tablet 20 mg PO BID 30 Days Qty: 60 0RF zaleplon 5 mg capsule 5 mg PO QHS Rx Instructions: must avoid high-fat meal/food immediately before taking dose metformin 500 mg tablet 1,000 mg PO DAILY Primary Care Provider: Kiana Chavarria Referrals: Kiana Chavarria MD [Primary Care Provider] - Print Language: Rwandan
[2025-01-06 15:07] LABS: Amphetamine Urine NEGATIVE (<1000 ng/mL); Barbiturate Urine NEGATIVE (< 200 ng/mL); Benzodiazepine Urine NEGATIVE (< 200 ng/mL); Buprenorphine Urine NEGATIVE (< 200 ng/mL); Cocaine Urine NEGATIVE (< 300 ng/mL); Fentanyl, Urine NEGATIVE; Methadone Urine NEGATIVE (< 300 ng/mL); Opiates Urine NEGATIVE (< 300 ng/mL); Oxycodone, Urine NEGATIVE (< 100 ng/mL); PCP Urine NEGATIVE (< 25 ng/mL); THC Urine NEGATIVE (< 50 ng/mL)
[2025-01-06 16:20] VITALS: BP 167/90; PULSE 75; RESP 18; O2SAT 99
--- NOTE | 2025-01-06 17:07 | PCA ---
FAXED EVERYTHING OVER TO [facility] @ [id number] EKG, XRAY, ED [place] PATE, DR MALCOLM NOTE, AND LABS
--- NOTE | 2025-01-06 17:40 | CM.ED ---
Social work This SW was approached by Iona from [facility] this morning about 1030 that [facility] had assessed patient and intent would be for patient to go to a psychiatric facility. Due to [facility] ED being busy, patient did not get into an ED room until 1349. When labwork was available at 1515p, this SW faxed to [facility] (f: ) and SW called [facility] (ph: [phone]), speaking with Johnny, at 1525 stating labwork had been faxed. At 1554, Iona from [facility] called and left this SW a VM stating [facility] had not received the labwork. This VM was received about 1645 and labwork was re-faxed by ED administrative secretary Sirisha about 1700. SW apologized to Vannesa from [facility] for the delay; Vannesa stated the fax issue could have been on Crisis' end and accepted SW apology. Rose Barlow, SENIOR TEST ANALYST, SENIOR PROJECT ACCOUNTANT
--- NOTE | 2025-01-06 21:10 | ED.RN ---
patients guardian Nelida updated she will be transferred to [facility] [place]. no further questions
[2025-01-06 23:45] VITALS: BP 153/87; PULSE 75; RESP 16; TEMP 36.7; O2SAT 96
--- NOTE | 2025-01-07 | ED.RN ---
2358: REPORT CALLED TO MT. MATT BAZZI, [facility]. NO FURTHER QUESTIONS AT THIS TIME.
== END 2025-01-07 00:01 ==
PROVIDERS: Emergency Provider Emergency Medicine; PCP Internal Medicine; Visit Provider Emergency Medicine
DX: R45.851 Suicidal ideations (principal); F20.9 Schizophrenia, unspecified; E11.9 Type 2 diabetes mellitus without complications; I10 Essential (primary) hypertension; F17.210 Nicotine dependence, cigarettes, uncomplicated; E66.9 Obesity, unspecified; Z68.25 Body mass index [BMI] 25.0-25.9, adult; Z79.84 Long term (current) use of oral hypoglycemic drugs; Z79.899 Other long term (current) drug therapy
CPT/HCPCS: 36415; 80048; 80307; 82077; 85025; 99284